=== PATIENT | male | born 1995 | race Caucasian/White ===

== ENCOUNTER 2021-04-02 22:34 | Emergency (ER) | payer MEDICAID, SELFPAY ==
--- NOTE | ~2021-04-02 | US_ITS ---
EXAMINATION: US ABDOMEN LIMITED CLINICAL INFORMATION: Worsening epigastric pain after eating. COMPARISON: None TECHNIQUE: Real-time imaging of the right upper quadrant abdominal viscera. FINDINGS: PANCREAS: Normal. LIVER: The liver is normal in size. The liver contour is normal. There is diffuse increased liver parenchymal echogenicity, consistent with hepatic steatosis. No focal hepatic lesion. There is no intrahepatic biliary duct dilatation seen. GALLBLADDER: Normal. The gallbladder is physiologically distended without evidence of stones, sludge, polyps, wall thickening or pericholecystic fluid. COMMON BILE DUCT: Normal in caliber measuring 0.4 cm in diameter. RIGHT KIDNEY: Normal. No hydronephrosis. No renal calculi or focal parenchymal lesions. The kidney measures 11.1 cm in maximum dimension. FREE FLUID: None. US/US abdomen limited IMPRESSION: Hepatic steatosis. Normal appearance of the gallbladder.
[2021-04-02 22:38] VITALS: BP 151/100; PULSE 100; RESP 16; TEMP 36.3; O2SAT 98; BMI 28.7
[2021-04-02 22:59] LABS: MANUAL DIFF FLAG NO
[2021-04-02 23:00] LABS: Basophils Absolute Auto 0.1 X10*3/uL (0.0-0.2); Basophils Percent Auto 0.8 % (0-2); Eosinophils Absolute Auto 0.7 X10*3/uL (0.0-0.4); Eosinophils Percent Auto 6.2 % (0-4); Hematocrit 45.2 % (42-52); Hemoglobin 15.7 g/dl (14.0-18.0); Imm Gran Abs Auto 0.05 X10*3/uL (0.00-0.03); Imm Gran Pct Auto 0.5 % (0.0-0.4); Lymphocytes Absolute Auto 1.9 X10*3/uL (1.2-4.9); Lymphocytes Percent Auto 17.7 % (20-40); Mean Corpuscular HGB Conc 34.7 g/dl (31.0-36.0); Mean Corpuscular Hemoglobin 31.3 pg (27.0-33.0); Mean Platelet Volume 9.7 fL (9.4-12.4); Monocytes Absolute Auto 0.6 X10*3/uL (0.1-1.2); Monocytes Percent Auto 5.1 % (2-11); Neutrophils Absolute Auto 7.5 X10*3/uL (2.0-8.3); Neutrophils Percent Auto 69.7 % (45-73); Platelet Count 381 X10*3/uL (160-400); Red Blood Count 5.02 X10*6/uL (4.60-5.80); Red Cell Distribution Width 11.7 % (11.0-16.0); White Blood Count 10.8 X10*3/uL (4.8-10.8)
[2021-04-02 23:54] LABS: Alanine Aminotransferase 34 U/L (0-40); Albumin Level 4.9 g/dL (3.5-5.0); Alkaline Phosphatase 76 U/L (39-117); Anion Gap 15 (12-20); Aspartate Amino Transferase 23 U/L (5-37); Bilirubin Total 0.4 mg/dL (0.0-1.0); Blood Urea Nitrogen 11 mg/dL (9-16); Calcium 9.7 mg/dL (8.4-10.2); Carbon Dioxide 25 mmol/L (22-29); Chloride 102 mmol/L (96-108); Creatinine Clr Calc Pharmacy 144.9; Estimated Glomerular Filt Rate > 60; Glucose Random 85 mg/dL (60-115); Lipase 22 U/L (8-78); Potassium 4.4 mmol/L (3.3-5.1); Sodium 138 mmol/L (135-145); Total Protein 8.2 g/dL (6.5-8.0)
[2021-04-03 01:13] VITALS: BP 146/97; PULSE 104; RESP 16; TEMP 37.1; O2SAT 99
--- NOTE | 2021-04-03 01:24 | ED.ABDPAIN ---
HPI - Abdominal Pain General Chief Complaint: Abdominal Pain Stated Complaint: abd pain Time Seen by Provider: 04/03/21 01:11 Source: patient Mode of arrival: ambulatory Limitations: no limitations History of Present Illness HPI narrative: Patient comes emergency room complaining of epigastric pain. Patient states it has been going on for about a year, but in the last couple of weeks, the pain is more intense after eating certain foods. Patient states he has a sharp pain in the epigastric area radiating towards his back. Patient denies vomiting or diarrhea. He has noticed that his stool has been darker than usual, states he has not seen any mignon blood. Related Data Previous Rx's Medication Instructions Recorded omeprazole 40 mg PO DAILY #10 cap 04/03/21 Allergies Allergy/AdvReac Type Severity Reaction Status Date / Time No Known Allergies Allergy Verified 04/02/21 22:46 Review of Systems Review of Systems Constitutional : No Weight loss, No Fever, No Chills, No Night Sweats, No Fatigue, No Malaise ENT/Mouth : No Hearing loss, No Ear Pain, No Nasal Congestion, No Sinus Pain, No Hoarseness, No sore throat, No Rhinorrhea, No Swallowing Difficulty Eyes: No Eye Pain, No Swelling, No Redness, No Foreign Body, No Discharge, No Vision Changes Cardiovascular : No Chest Pain, No SOB, No Dyspnea on Exertion, No Orthopnea, No Edema, No Palpitations Respiratory : No Cough, No Sputum, No Wheezing, No Smoke Exposure, No Dyspnea Gastrointestinal : No Nausea, No Vomiting, No Diarrhea, No Constipation, complaining of epigastric pain worsened by meals, No Hematochezia, No Melena Genitourinary : no irregular bleeding, No Dysuria, No Urinary Frequency, No Hematuria, No Urinary Incontinence, No Urgency, No Flank Pain, No Urinary Flow Changes, No Hesitancy Musculoskeletal : No joint pain, No Myalgias, No Joint Swelling Skin : No Skin Lesions, No rash Neuro : No Weakness, No Numbness, No Paresthesias, No Loss of Consciousness, No Dizziness, No Headache Psych : No Anxiety/Panic, No Depression, No SI/HI/AH/VH, No Social Issues, Heme/Lymph: No Bruising, No Bleeding,No Lymphadenopathy Endocrine : No Polyuria, No Polydipsia, No Temperature Intolerance Physical Exam Vital Signs: Vital Signs: Last Vital Signs Temp 98.7 F 04/03/21 01:13 Pulse 104 H 04/03/21 01:13 Resp 16 04/03/21 01:13 BP 146/97 H 04/03/21 01:13 Pulse Ox 99 04/03/21 01:13 Body Mass Index 28.7 Appearance: Alert. Oriented X3. No acute distress. Eyes: Pupils equal, round and reactive to light. ENT: Pharynx normal. Neck: Normal inspection. Neck supple. No lymph nodes noted. No crepitus CVS: Normal heart rate and rhythm. Pulses normal. Normal S1 and S2 Respiratory: No respiratory distress. Breath sounds normal. No Wheezing. No rales Abdomen: Soft and nontender, negative Hirsch sign, No rigidity. No distention. good BS x4 Skin: Skin warm and dry. Normal skin color. Normal skin turgor. Extremities: No lower extremity edema. No lower extremity edema. No Lacerations. No Rash Neuro: Oriented X 3. No motor deficit. No sensory deficit. Moving all extermities. No slurred speech. Course Course Course Narrative: I discussed the labs and ultrasound with the patient, patient likely having gastritis versus peptic ulcer disease. MDM - Abdominal Pain Lab Data Result diagrams: 04/02/21 22:54 04/02/21 22:54 Labs: Lab Results 04/02/21 04/02/21 04/02/21 Range/Units 22:54 22:54 22:54 WBC 10.8 (4.8-10.8) X10*3/uL RBC 5.02 (4.60-5.80) X10*6/uL Hgb 15.7 (14.0-18.0) g/dl Hct 45.2 (42-52) % MCV 90.0 (80-98) fL MCH 31.3 (27.0-33.0) pg MCHC 34.7 (31.0-36.0) g/dl RDW 11.7 (11.0-16.0) % Plt Count 381 (160-400) X10*3/uL MPV 9.7 (9.4-12.4) fL Immature Gran % (Auto) 0.5 H (0.0-0.4) % Neut % (Auto) 69.7 (45-73) % Lymph % (Auto) 17.7 L (20-40) % [place] % (Auto) 5.1 (2-11) % Eos % (Auto) 6.2 H (0-4) % Baso % (Auto) 0.8 (0-2) % Lymph # (Auto) 1.9 (1.2-4.9) X10*3/uL [place] # (Auto) 0.6 (0.1-1.2) X10*3/uL Eos # (Auto) 0.7 H (0.0-0.4) X10*3/uL Baso # (Auto) 0.1 (0.0-0.2) X10*3/uL Abs Immat Gran (auto) 0.05 H (0.00-0.03) X10*3/uL Absolute Neuts (auto) 7.5 (2.0-8.3) X10*3/uL Absolute Nucleated RBC 0.000 (0.0-0.012) X10*3/uL Nucleated RBC % (auto) 0.0 (0.0-0.2) /100WBC Hold Blue Top SEE NOTE Sodium 138 (135-145) mmol/L Potassium 4.4 (3.3-5.1) mmol/L Chloride 102 (96-108) mmol/L Carbon Dioxide 25 (22-29) mmol/L Anion Gap 15 (12-20) BUN 11 (9-16) mg/dL Creatinine 0.89 (0.5-1.4) mg/dL Estim Creat Clear Calc 144.9 Estimated GFR > 60 Random Glucose 85 (60-115) mg/dL Calcium 9.7 (8.4-10.2) mg/dL Total Bilirubin 0.4 (0.0-1.0) mg/dL AST 23 (5-37) U/L ALT 34 (0-40) U/L Alkaline Phosphatase 76 (39-117) U/L Total Protein 8.2 H (6.5-8.0) g/dL Albumin 4.9 (3.5-5.0) g/dL Lipase 22 (8-78) U/L Imaging Data US - abdomen: Radiologist's impression: Real-time imaging of the right upper quadrant abdominal viscera. FINDINGS: PANCREAS: Normal. LIVER: The liver is normal in size. The liver contour is normal. There is diffuse increased liver parenchymal echogenicity, consistent with hepatic steatosis. No focal hepatic lesion. There is no intrahepatic biliary duct dilatation seen. GALLBLADDER: Normal. The gallbladder is physiologically distended without evidence of stones, sludge, polyps, wall thickening or pericholecystic fluid. COMMON BILE DUCT: Normal in caliber measuring 0.4 cm in diameter. RIGHT KIDNEY: Normal. No hydronephrosis. No renal calculi or focal parenchymal lesions. The kidney measures 11.1 cm in maximum dimension. FREE FLUID: None. US/US abdomen limited IMPRESSION: Hepatic steatosis. Normal appearance of the gallbladder. Discharge Plan Discharge Clinical Impression: Gastritis Qualifiers: Gastritis type: unspecified gastritis Chronicity: chronic Patient Disposition: Home, Self-Care Instructions: Gastritis (ED), Diet for Stomach Ulcers and Gastritis (ED) Additional Instructions: Please follow-up with your primary care physician tomorrow. If you have any worsening or new symptoms, please return to the emergency room or call 911 Prescriptions: New omeprazole 40 mg capsule,delayed release(DR/EC) 40 mg PO DAILY Qty: 10 RF: 0 PMFSH Social History Social History Alcohol intake: never Smoking Status: Never smoker Use of substances other than those prescribed or required for medical reasons: No Advance Directives: No Advance Directives Information Provided: No
[2021-04-03] MEDS: Lidocaine HCl Viscous 2 % 15 ML SOLUTION MUCOUS MEM (01:31)
[2021-04-03] MEDS: Magnesium Hydrox/Alum Hydrox 30 ML ORAL.SUSP PO (01:31)
[2021-04-03 03:08] VITALS: BP 150/100; PULSE 100; RESP 16; O2SAT 100
== END 2021-04-03 03:10 | disposition home or self-care (01) ==
PROVIDERS: Emergency Provider Emergency Medicine
DX: K29.70 Gastritis, unspecified, without bleeding (principal); R10.13 Epigastric pain
CPT/HCPCS: 36415; 76705; 80053; 83690; 85025; 99284

== ENCOUNTER 2021-04-13 00:29 | Emergency (ER) | payer MEDICAID, SELFPAY ==
--- NOTE | 2021-04-13 | ECG_ITS ---
Test Reason : CHEST THIGHTNESS Blood Pressure : / mmHG Vent. Rate : 089 BPM Atrial Rate : 089 BPM P-R Int : 144 ms QRS Dur : 080 ms QT Int : 354 ms P-R-T Axes : 031 035 036 degrees QTc Int : 430 ms Normal sinus rhythm Normal ECG No previous ECGs available Referred By: Generic ED Physician Electronically Signed By:ABDELRAHMAN FAY MD
--- NOTE | ~2021-04-13 | XR_ITS ---
EXAMINATION: XR CHEST CLINICAL INFORMATION: Chest pain COMPARISON: None TECHNIQUE: 2 views of the chest were obtained. FINDINGS: The lungs are clear with no focal consolidation. No evidence of pneumothorax, pulmonary edema, or pleural effusions. The cardiomediastinal silhouette is unremarkable. No acute osseous findings. XR/XR chest 2V IMPRESSION: No acute cardiopulmonary findings.
[2021-04-13 00:32] VITALS: BP 156/102; PULSE 95; RESP 20; TEMP 36; O2SAT 98; BMI 28.7
--- NOTE | 2021-04-13 00:42 | PC.NURSE ---
EKG machine unavailable at this time.
--- NOTE | 2021-04-13 05:04 | ED_ITS ---
HPI - General Adult General Chief complaint: ETOH/Substance Use Stated complaint: SOB Time Seen by Provider: 04/13/21 05:03 Source: patient Mode of arrival: ambulatory History of Present Illness HPI narrative: This is a 25-year-old male who endorses that he drank alcohol and smoked crack cocaine on Wednesday and then began developing increasing chest tightness and shortness of breath last evening that has not been associated with fever, chills, GI symptoms, or symptoms. Pain does worsen with deep inspiration and movement. Related Data Previous Rx's Medication Instructions Recorded omeprazole 40 mg PO DAILY #10 cap 04/03/21 Allergies Allergy/AdvReac Type Severity Reaction Status Date / Time No Known Allergies Allergy Verified 04/13/21 00:38 Review of Systems Review of Systems: Pertinent positives and negatives as stated in HPI 10 point review of systems is otherwise negative. PMFSH Past Medical History Source: nursing notes reviewed Social History Social History Alcohol intake: never Smoking Status: Never smoker Advance Directives: No Advance Directives Information Provided: No Physical Exam Vital Signs: Vital Signs: Last Vital Signs Temp 96.8 F 04/13/21 00:32 Pulse 95 04/13/21 00:32 Resp 20 04/13/21 00:32 BP 156/102 H 04/13/21 00:32 Pulse Ox 98 04/13/21 00:32 Body Mass Index 28.7 VITAL SIGNS: Reviewed. GENERAL: Well developed, well nourished, in no acute distress. HEAD: Normocephalic/atraumatic EYES: PERRLA, EOMI OROPHARYNX: no oral lesions noted, posterior pharynx clear NECK: Supple, no adenopathy LUNGS: Normal breath sounds. No adventitious sounds or accessory muscle use. SpO2<98> CHEST WALL: MINIMAL TENDERNESS TO PALPATION TO ANTERIOR CHEST WALL CARDIOVASCULAR: Regular rate and rhythm without noted murmurs, no JVD or lower extremity edema. ABDOMEN: Soft, non-tender, non-distended with bowel sounds. Course Course Course Narrative: This is a 25-year-old male with history and clinical presentation most consistent with costochondritis/muscle strain. Review of all investigations negative for any acute findings of cardio pulmonary etiology and negative for evidence to suggest PE although that was low clinical suspicion. Patient received results and was discharged in stable condition with instructions for [id number] analgesics. Medical Decision Making Lab Data Labs: Lab Results 04/13/21 04/13/21 Range/Units 06:04 06:04 D-Dimer < 200 NG/ML Troponin I High Sens < 3.5 (<3.5-35.0) ng/L Discharge Plan Discharge Clinical Impression: Atypical chest pain, Costochondritis Patient Disposition: Home, Self-Care Instructions: Costochondritis (ED) Additional Instructions: 1. Recommend using [id number] Tylenol/ibuprofen as directed on the outside packaging for any pain control. 2. Please follow-up with your primary care provider in the next 2-3 days for re- evaluation. Return to the ER for any acute worsening of your symptoms. Prescriptions: No Action omeprazole 40 mg capsule,delayed release(DR/EC) 40 mg PO DAILY Qty: 10 RF: 0
[2021-04-13 06:46] LABS: D Dimer < 200 NG/ML
[2021-04-13 06:51] LABS: Troponin-I High Sensitivity < 3.5 ng/L (<3.5-35.0)
== END 2021-04-13 07:48 | disposition home or self-care (01) ==
PROVIDERS: Emergency Provider Student in an Organized Health Care Education/Training Program
DX: R07.9 Chest pain, unspecified (principal); M94.0 Chondrocostal junction syndrome [Tietze]; F14.10 Cocaine abuse, uncomplicated; Z79.899 Other long term (current) drug therapy
CPT/HCPCS: 36415; 71046; 80048; 84443; 84484; 85025; 85379; 87635; 93005; 99283; 99284

== ENCOUNTER 2021-04-13 21:46 | Emergency (ER) | payer MEDICAID, SELFPAY ==
--- NOTE | 2021-04-13 | ECG_ITS ---
Test Reason : CHEST PAIN Blood Pressure : / mmHG Vent. Rate : 109 BPM Atrial Rate : 109 BPM P-R Int : 154 ms QRS Dur : 088 ms QT Int : 324 ms P-R-T Axes : 068 050 047 degrees QTc Int : 436 ms Sinus tachycardia Otherwise normal ECG When compared with ECG of 13-APR-2021 00:47, No significant change was found Referred By: Generic ED Physician Electronically Signed By:CHELA JEFFERSON
--- NOTE | ~2021-04-13 | XR_ITS ---
EXAMINATION: XR CHEST CLINICAL INFORMATION: Shortness of breath COMPARISON: 04/13/2021 TECHNIQUE: 2 views of the chest were obtained. FINDINGS: The lungs are clear with no focal consolidation. No evidence of pneumothorax, pulmonary edema, or pleural effusions. The cardiomediastinal silhouette is unremarkable. No acute osseous findings. XR/XR chest 2V IMPRESSION: No acute cardiopulmonary findings.
[2021-04-13 22:33] VITALS: BP 156/98; PULSE 112; RESP 22; TEMP 36.8; O2SAT 98; BMI 28.7
--- NOTE | 2021-04-14 01:45 | ED_ITS ---
HPI - Anxiety General Chief Complaint: Anxiety Stated Complaint: SOB/Chest Pain Time Seen by Provider: 04/14/21 00:51 Source: patient Mode of arrival: ambulatory History of Present Illness HPI narrative: 25-year-old male without significant past medical history other than a occasional drinker of alcohol and occasionally smokes crack cocaine. This patient was seen here last night for rule out of chest pain with a negative workup for PE, pneumonia, cardiac ischemia. He now presents stating that he woke up and ?just did not feel right?. He describes breathing fast and feeling short of breath which causes him to have chest pain. He also describes wanting to pursue possible options for detox but denies any suicidal or homicidal idea tion. Otherwise, he denies any fever, chills, GI or symptoms. Related Data Previous Rx's Medication Instructions Recorded omeprazole 40 mg PO DAILY #10 cap 04/03/21 hydroxyzine HCl 25 mg PO TID PRN #10 tab 04/14/21 Allergies Allergy/AdvReac Type Severity Reaction Status Date / Time No Known Allergies Allergy Verified 04/13/21 00:38 Review of Systems Review of Systems: Pertinent positives and negatives as stated in HPI 10 point review of systems is otherwise negative. PMFSH Past Medical History Source: nursing notes reviewed Social History Social History Alcohol intake: never Smoking Status: Never smoker Advance Directives: No Advance Directives Information Provided: No Physical Exam Vital Signs: Vital Signs: Last Vital Signs Temp 98.2 F 04/13/21 22:33 Pulse 112 H 04/13/21 22:33 Resp 22 H 04/13/21 22:33 BP 156/98 H 04/13/21 22:33 Pulse Ox 98 04/13/21 22:33 Body Mass Index 28.7 VITAL SIGNS: Reviewed. GENERAL: Well developed, well nourished, in no acute distress. HEAD: Normocephalic/atraumatic EYES: PERRLA, EOMI EARS: Ext canals without abnormality NOSE: Nares patent bilateral OROPHARYNX: no oral lesions noted, posterior pharynx clear NECK: Supple, no adenopathy LUNGS: Normal breath sounds. No adventitious sounds or accessory muscle use. No tachypnea. SpO2<98> CARDIOVASCULAR: Regular rate and rhythm without noted murmurs ABDOMEN: Soft, non-tender, non-distended with bowel sounds. Course Course Course Narrative: A 25-year-old male history and clinical presentation consi stent with as workup last night negative for any life-threatening etiologies. This evening will obtain additional laboratory workup and look for possible electrolyte derangements and also provide patient with a dose of hydroxyzine. Review of all investigations negative for any acute findings to better explain patient's presentation other than anxiety and possibly residual affects from his smoking of crack cocaine. On re-evaluation he does endorse some improvement of his anxiety symptoms but states that ?I still do not feel quite right?. He is otherwise stable for discharge to home and follow up with his primary care provider. MDM - Anxiety Lab Data Result diagrams: 04/14/21 02:06 04/14/21 02:06 Labs: Lab Results 04/14/21 04/14/21 04/14/21 Range/Units 02:02 02:06 02:06 WBC 12.4 H (4.8-10.8) X10*3/uL RBC 5.10 (4.60-5.80) X10*6/uL Hgb 16.1 (14.0-18.0) g/dl Hct 45.3 (42-52) % MCV 88.8 (80-98) fL MCH 31.6 (27.0-33.0) pg MCHC 35.5 (31.0-36.0) g/dl RDW 11.6 (11.0-16.0) % Plt Count 422 H (160-400) X10*3/uL MPV 9.6 (9.4-12.4) fL Immature Gran % (Auto) 0.4 (0.0-0.4) % Neut % (Auto) 78.6 H (45-73) % Lymph % (Auto) 16.1 L (20-40) % [place] % (Auto) 4.1 (2-11) % Eos % (Auto) 0.3 (0-4) % Baso % (Auto) 0.5 (0-2) % Lymph # (Auto) 2.0 (1.2-4.9) X10*3/uL [place] # (Auto) 0.5 (0.1-1.2) X10*3/uL Eos # (Auto) 0.0 (0.0-0.4) X10*3/uL Baso # (Auto) 0.1 (0.0-0.2) X10*3/uL Abs Immat Gran (auto) 0.05 H (0.00-0.03) X10*3/uL Absolute Neuts (auto) 9.8 H (2.0-8.3) X10*3/uL Absolute Nucleated RBC 0.000 (0.0-0.012) X10*3/uL Nucleated RBC % (auto) 0.0 (0.0-0.2) /100WBC Sodium 140 (135-145) mmol/L Potassium 3.9 (3.3-5.1) mmol/L Chloride 106 (96-108) mmol/L Carbon Dioxide 20 L (22-29) mmol/L Anion Gap 18 (12-20) BUN 9 (9-16) mg/dL Creatinine 0.97 (0.5-1.4) mg/dL Estim Creat Clear Calc 133.0 Estimated GFR > 60 Random Glucose 93 (60-115) mg/dL Calcium 10.4 H D (8.4-10.2) mg/dL Troponin I High Sens (<3.5-35.0) ng/L TSH 1.11 (0.32-4.0) uIU/mL COVID-19 (ANNETTE) Negative (Negative) COVID-19 Clin Com See Note 04/14/21 Range/Units 02:06 WBC (4.8-10.8) X10*3/uL RBC (4.60-5.80) X10*6/uL Hgb (14.0-18.0) g/dl Hct (42-52) % MCV (80-98) fL MCH (27.0-33.0) pg MCHC (31.0-36.0) g/dl RDW (11.0-16.0) % Plt Count (160-400) X10*3/uL MPV (9.4-12.4) fL Immature Gran % (Auto) (0.0-0.4) % Neut % (Auto) (45-73) % Lymph % (Auto) (20-40) % [place] % (Auto) (2-11) % Eos % (Auto) (0-4) % Baso % (Auto) (0-2) % Lymph # (Auto) (1.2-4.9) X10*3/uL [place] # (Auto) (0.1-1.2) X10*3/uL Eos # (Auto) (0.0-0.4) X10*3/uL Baso # (Auto) (0.0-0.2) X10*3/uL Abs Immat Gran (auto) (0.00-0.03) X10*3/uL Absolute Neuts (auto) (2.0-8.3) X10*3/uL Absolute Nucleated RBC (0.0-0.012) X10*3/uL Nucleated RBC % (auto) (0.0-0.2) /100WBC Sodium (135-145) mmol/L Potassium (3.3-5.1) mmol/L Chloride (96-108) mmol/L Carbon Dioxide (22-29) mmol/L Anion Gap (12-20) BUN (9-16) mg/dL Creatinine (0.5-1.4) mg/dL Estim Creat Clear Calc Estimated GFR Random Glucose (60-115) mg/dL Calcium (8.4-10.2) mg/dL Troponin I High Sens < 3.5 (<3.5-35.0) ng/L TSH (0.32-4.0) uIU/mL COVID-19 ([facility]NETTE) (Negative) COVID-19 Clin Com Discharge Plan Discharge Clinical Impression: Acute anxiety Patient Disposition: Home, Self-Care Instructions: Anxiety (ED) Additional Instructions: Please follow-up with your primary care provider by calling the office in the morning and setting up a follow-up appointment. Return to the ER for any acute worsening of your symptoms. Prescriptions: New hydroxyzine HCl 25 mg tablet 25 mg PO TID PRN (Reason: anxiety) Qty: 10 RF: 0 No Action omeprazole 40 mg capsule,delayed release(DR/EC) 40 mg PO DAILY Qty: 10 RF: 0 Referrals: Physician,Unknown [Primary Care Provider] - 2 days
[2021-04-14 02:11] LABS: MANUAL DIFF FLAG NO
[2021-04-14 02:12] LABS: Basophils Absolute Auto 0.1 X10*3/uL (0.0-0.2); Basophils Percent Auto 0.5 % (0-2); Eosinophils Percent Auto 0.3 % (0-4); Hematocrit 45.3 % (42-52); Hemoglobin 16.1 g/dl (14.0-18.0); Imm Gran Abs Auto 0.05 X10*3/uL (0.00-0.03); Imm Gran Pct Auto 0.4 % (0.0-0.4); Lymphocytes Percent Auto 16.1 % (20-40); Mean Corpuscular HGB Conc 35.5 g/dl (31.0-36.0); Mean Corpuscular Hemoglobin 31.6 pg (27.0-33.0); Mean Corpuscular Volume 88.8 fL (80-98); Mean Platelet Volume 9.6 fL (9.4-12.4); Monocytes Absolute Auto 0.5 X10*3/uL (0.1-1.2); Monocytes Percent Auto 4.1 % (2-11); Neutrophils Absolute Auto 9.8 X10*3/uL (2.0-8.3); Neutrophils Percent Auto 78.6 % (45-73); Platelet Count 422 X10*3/uL (160-400); Red Cell Distribution Width 11.6 % (11.0-16.0); White Blood Count 12.4 X10*3/uL (4.8-10.8)
[2021-04-14] MEDS: hydrOXYzine HCL 25 MG TABLET PO (02:16)
[2021-04-14 02:28] LABS: COVID-19 Test Negative (Negative); IDNOW Serial# 9DD0AD1C
[2021-04-14 02:32] LABS: Anion Gap 18 (12-20); Blood Urea Nitrogen 9 mg/dL (9-16); Calcium 10.4 mg/dL (8.4-10.2); Carbon Dioxide 20 mmol/L (22-29); Chloride 106 mmol/L (96-108); Estimated Glomerular Filt Rate > 60; Glucose Random 93 mg/dL (60-115); Potassium 3.9 mmol/L (3.3-5.1); Sodium 140 mmol/L (135-145)
[2021-04-14 02:39] LABS: Troponin-I High Sensitivity < 3.5 ng/L (<3.5-35.0)
[2021-04-14 04:01] LABS: Thyroid Stimulating Hormone 1.11 uIU/mL (0.32-4.0)
== END 2021-04-14 05:22 | disposition home or self-care (01) ==
PROVIDERS: Emergency Provider Student in an Organized Health Care Education/Training Program
DX: F41.1 Generalized anxiety disorder (principal); F14.180 Cocaine abuse with cocaine-induced anxiety disorder; R06.02 Shortness of breath; Z20.822 Contact with and (suspected) exposure to COVID-19; Z79.899 Other long term (current) drug therapy
CPT/HCPCS: 36415; 71046; 80048; 84443; 84484; 85025; 87635; 93005; 99283

== ENCOUNTER 2021-09-19 23:17 | Inpatient (IN) | payer OTHER, SELFPAY ==
[2021-09-19 23:35] VITALS: BP 149/98; PULSE 101; RESP 18; TEMP 36.4; O2SAT 97
[2021-09-20] MEDS: LORazepam 1 MG TABLET 2 MG PO (01:02)
--- NOTE | 2021-09-20 01:54 | PC.ADMIT ---
Patient is a pleasant and respectful 25 year old white male with no known allergies, who presented to [facility] after being Section 12'd by [facility]. Patient lives at home with his mother and step-father. He describes his relationship with his parents as supportive, though reports a history of growing up in [facility] foster homes due to familial neglect. Per [facility] report, [facility] spoke with his mother and step father. His mother and step father reported Osmany typically reports suicidal ideation however today (09/18/21) he stated that he wanted to end his life by drinking alcohol and taking pills. He started therapy a few months ago; [facility] note from 09/16 indicates appears to be declining, making very little to no growth. Upon arrival to [facility] ED and at the time of assessment Osmany denies any sucidal or homicidal ideation, plan or intent. Patient arrives to [facility] at 23:35 on 09/19/21. Patient continues to deny suicidal ideation at this time. Patient reports past history of substance use. He reports Cocaine use beginning at age 23, Crack Cocaine use beginning about 1 year ago, Meth use - 10-15 times recently with last substance use about three months ago. Patient has negative Tox and ETOH screen at [facility]. Patient reports struggling with debilitating anxiety since ending substance use. He states, I think it messed up my brain. Patient reports he has been experiencing 10/10 depression and anxiety with intermittent anxiety attacks. He reports having gone to the ED for symptoms of anxiety attacks. He states, I thought I had something wrong with my heart. Patient reports shortness of breath, chest pain, heart palpitations, and ear ringing during anxiety attacks. He is noted to have elevated Heart Rate and Pulse upon arrival to . He reports he feels his anxiety and depression is preventing him from engaging in normal activities such as working, hanging out with friends, attending school, and/or dating. Patient reports he has talked with both his therapist and PCP about his anxiety symptoms but they did not want to give me anything to help. Patient reports he has been taking a friend's prescribed Lorazepam about 2 mg a day; 1mg in the morning and 1 mg in the evening. With the last dose yesterday morning, (09/18/21). Patient reports fears of Benzo withdrawals. He states he has been feeling tired and grumpy. [facility] M.D. notes He eloped from the emergency department last night (09/18/21) police were contacted and were unable to find him however he returned back to his home and was told that he needs to be seen in the emergency department to be cleared from a psychiatric standpoint. He continues to deny suicidal or homicidal thoughts or actions and has no somatic complaints at this time. Home Medications: Famotidine (Pepcid) 20mg - take 1 tablet by mouth twice day as needed for heartburn - start date: 05/30/21 Hydrocortisone valerate 0.2% cream - Apply topically twice a day to affected area - start dateL 05/30/21
--- NOTE | 2021-09-20 02:37 | PC.NURSE ---
Patient admitted to [facility] on Conditional Voluntary (CV) signed in Chart
[2021-09-20 08:00] VITALS: BP 136/85; PULSE 95; RESP 18; TEMP 36.7; O2SAT 98
--- NOTE | 2021-09-20 09:25 | HO.PSYADMNOT ---
HPI Date of Service: 09/20/21 Chief Complaint: Unspecified Depressive D/O Sources of Information: patient interviewed, chart reviewed and crisis/core team assessment reviewed HPI Subjective Notes: Conditional Voluntary Healthcare Proxy: No Guardianship: No Medical Problems Affecting Mental Status: No Narrative: Referred by [facility]IVE SERVICES SOCIAL WORKER after evaluation at [facility] ED. Presented with SI to use ETOH and pills. Later denied SI. Eloped from [facility]. Later sectioned back to ED. Increasing anxiety and depression, isolating, not meeting friends. High anxiety preventing him from working. Using friends Loraz at 2 mg , now fears withdrawal. Hx severe LUIS ANGEL, some panic like feelings. No PTSD (doubt it) or phobias. No OCD. Hx ACEs as a child bc was fostered and was in [facility] group homes. Both parents were substance users. Denies bipolar/psychosis/ other major syndromes Past Psychiatric History: Has a therapist at [facility]. Not helpful;. Waiting for a Rxer Medical Evaluation Reviewed: Hospitalist Georgina [facility] Narrative: GERD Family History: Both parents: polysubstance use. Bio F still using. Lives in [place] Social History: Lives with M and StepF Substance History: THC+ Cocaine : last use 3 months ago. 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 Not current Diagnostics Vital Signs (24Hr): Vital Signs - 24 hr 09/19/21 23:35 Temperature 97.5 F Pulse Rate 101 H Respiratory Rate 18 Blood Pressure 149/98 H Pulse Oximetry 97 Meds/Allergies Meds Home Medications Acetaminophen (Acetaminophen 325 Mg Tablet) 650 mg PO Q6H PRN PRN Reason: Headache/Pain Mild Scale (1-3) Al Hydroxide/Mg Hydroxide (Magnesium Hydrox/Alum Hydrox 30 Ml Oral.Susp) 30 ml PO Q6H PRN PRN Reason: Heartburn/Nausea Famotidine (Famotidine 20 Mg Tablet) 20 mg PO DAILY [facility] Last Admin: 09/21/21 09:03 Dose: Not Given Documented by: Hydrocortisone (Hydrocortisone 1 % Cream 28.35 Gm Tube) 1 appl TOPICAL DAILY PRN; Protocol PRN Reason: eczema Hydroxyzine HCl (Hydroxyzine Hcl 25 Mg Tablet) 25 mg PO BEDTIME PRN PRN Reason: Anxiety Lorazepam (Lorazepam 1 Mg Tablet) 1 mg PO Q4H PRN PRN Reason: Breakthrough alcohol withdrawa Stop: 09/24/21 00:18 Last Admin: 09/20/21 12:21 Dose: 1 mg Documented by: Lorazepam (Lorazepam 0.5 Mg Tablet) 0.5 mg PO DAILY [facility] Last Admin: 09/21/21 09:02 Dose: 0.5 mg Documented by: Lorazepam (Lorazepam 1 Mg Tablet) 1 mg PO BEDTIME [facility] Last Admin: 09/20/21 22:07 Dose: 1 mg Documented by: Magnesium Hydroxide (Milk Of Magnesia 30 Ml Oral.Susp) 30 ml PO DAILY PRN PRN Reason: Constipation Nicotine Polacrilex (Nicotine Polacrilex 2 Mg Gum) 4 mg BUCCAL Q2H PRN PRN Reason: Nicotine Cravings Quetiapine Fumarate (Quetiapine Fumarate 25 Mg Tablet) 25 mg PO RQ4H PRN PRN Reason: anxiety/restlessness Last Admin: 09/21/21 16:27 Dose: 25 mg Documented by: Sertraline HCl (Sertraline Hcl 25 Mg Tablet) 25 mg PO DAILY [facility] Last Admin: 09/21/21 09:02 Dose: 25 mg Documented by: Trazodone HCl (Trazodone Hcl 50 Mg Tablet) 50 mg PO BEDTIME PRN PRN Reason: Insomnia Allergies Allergies Allergy/AdvReac Type Severity Reaction Status Date / Time No Known Allergies Allergy Verified 04/13/21 00:38 Mental Status Exam Mental Status Exam Patient Appearance: Appropriate Patient Orientation: Person, Place, Time and Situation Level of Consciousness: Awake Patient Behavior: Appropriate and Cooperative Mood Description: Calm and Depressed Affect Description: Withdrawn and Depressed Ability to Follow Directions: Excellent Speech Pattern: Clear Memory Description: Intact Hallucinations: None Delusions: Not Present Thought Content: positive for Intact and positive for Suicidal Ideation (Now denies) Depressive Symptoms: Increased Anxiety Judgement: Fair Assessment & Plan Assessment & Plan (1) Major depression, recurrent, chronic: Status: Acute Code(s): F33.9 - Major depressive disorder, recurrent, unspecified (2) Generalized anxiety disorder: Status: Acute Code(s): F41.1 - Generalized anxiety disorder (3) Sedative hypnotic or anxiolytic dependence: Status: Acute Code(s): F13.20 - Sedative, hypnotic or anxiolytic dependence, uncomplicated Assessment and Plan: 1. cv, q15 2. Slow taper off Loraz. 3, Add PRN Seroquel. Vistaril not effective 4. Zoloft. 5. Refer to CHILD PROTECTIVE SERVICES SOCIAL WORKER prescriber. 6. ELOS: 5 days Reason for continued inpatient stay Substantial Risk for: harm to self
[2021-09-20 12:00] VITALS: BP 138/82; PULSE 96; RESP 20; TEMP 36.8; O2SAT 98
[2021-09-20] MEDS: LORazepam 1 MG TABLET PO ×2 (12:21→22:07)
[2021-09-20] MEDS: Sertraline HCL 25 MG TABLET PO (13:39)
--- NOTE | 2021-09-21 08:38 | P.PNPSI_ITS ---
Subjective Subjective Date of Service: 09/21/21 Reason For Visit: Unspecified Depressive D/O Subjective Notes: Conditional Voluntary Healthcare Proxy: No Guardianship: No Medical Problems Affecting Mental Status: No Interim History: 09/21: Pleasant. Poor sleep bc of noisy roommate. Denies SI. Hopeful. Reassured re benzo WD. Ct plan Medication Compliance: Yes Side effects from medications: No Attending Groups: Yes Review of Systems Acute medical concerns: No Mental Status Exam Mental Status Exam Patient Behavior: Anxious Mood Description: Calm Affect Description: Calm Patient Cognition Impaired: No Ability to Follow Directions: Excellent Speech Pattern: Clear Memory Description: Intact Hallucinations: None Delusions: Not Present Thought Process: Intact Depressive Symptoms: Increased Anxiety Judgement: Fair Diagnostics Vital Signs (24Hr): Vital Signs - 24 hr 09/20/21 12:00 Temperature 98.2 F Pulse Rate 96 Respiratory Rate 20 Blood Pressure 138/82 Pulse Oximetry 98 Medications Medications Current Medications Acetaminophen (Acetaminophen 325 Mg Tablet) 650 mg PO Q6H PRN PRN Reason: Headache/Pain Mild Scale (1-3) Al Hydroxide/Mg Hydroxide (Magnesium Hydrox/Alum Hydrox 30 Ml Oral.Susp) 30 ml PO Q6H PRN PRN Reason: Heartburn/Nausea Famotidine (Famotidine 20 Mg Tablet) 20 mg PO DAILY [facility] Last Admin: 09/20/21 11:25 Dose: Not Given Documented by: Hydrocortisone (Hydrocortisone 1 % Cream 28.35 Gm Tube) 1 appl TOPICAL DAILY PRN; Protocol PRN Reason: eczema Hydroxyzine HCl (Hydroxyzine Hcl 25 Mg Tablet) 25 mg PO BEDTIME PRN PRN Reason: Anxiety Lorazepam (Lorazepam 1 Mg Tablet) 1 mg PO Q4H PRN PRN Reason: Breakthrough alcohol withdrawa Stop: 09/24/21 00:18 Last Admin: 09/20/21 12:21 Dose: 1 mg Documented by: Lorazepam (Lorazepam 0.5 Mg Tablet) 0.5 mg PO DAILY [facility] Lorazepam (Lorazepam 1 Mg Tablet) 1 mg PO BEDTIME [facility] Last Admin: 09/20/21 22:07 Dose: 1 mg Documented by: Magnesium Hydroxide (Milk Of Magnesia 30 Ml Oral.Susp) 30 ml PO DAILY PRN PRN Reason: Constipation Nicotine Polacrilex (Nicotine Polacrilex 2 Mg Gum) 4 mg BUCCAL Q2H PRN PRN Reason: Nicotine Cravings Quetiapine Fumarate (Quetiapine Fumarate 25 Mg Tablet) 25 mg PO RQ4H PRN PRN Reason: anxiety/restlessness Sertraline HCl (Sertraline Hcl 25 Mg Tablet) 25 mg PO DAILY [facility] Last Admin: 09/20/21 13:39 Dose: 25 mg Documented by: Trazodone HCl (Trazodone Hcl 50 Mg Tablet) 50 mg PO BEDTIME PRN PRN Reason: Insomnia Allergies Allergies Allergy/AdvReac Type Severity Reaction Status Date / Time No Known Allergies Allergy Verified 04/13/21 00:38 Assessment & Plan Assessment & Plan (1) Sedative hypnotic or anxiolytic dependence: Status: Acute Code(s): F13.20 - Sedative, hypnotic or anxiolytic dependence, uncomplicated (2) Generalized anxiety disorder: Status: Acute Code(s): F41.1 - Generalized anxiety disorder (3) Major depression, recurrent, chronic: Status: Acute Code(s): F33.9 - Major depressive disorder, recurrent, unspecified Assessment and Plan: 1/ Ct plan as noted on 09/20 I spent minutes with the patient and/or on the patient floor today, greater than?50% of which was spent counseling/coordinating care. Patient educated on: diagnosis Reason for contiued inpatient stay Substantial Risk for: harm to self and rapid decompensation
[2021-09-21] MEDS: LORazepam 0.5 MG TABLET PO (09:02)
[2021-09-21] MEDS: Sertraline HCL 25 MG TABLET PO (09:02)
[2021-09-21 16:00] VITALS: BP 146/83; PULSE 94; RESP 22; TEMP 36; O2SAT 99
[2021-09-21] MEDS: QUEtiapine Fumarate 25 MG TABLET PO (16:27)
[2021-09-21] MEDS: LORazepam 1 MG TABLET PO (21:12)
[2021-09-22 07:20] VITALS: BP 135/83; PULSE 90; RESP 18; TEMP 36.6; O2SAT 98
[2021-09-22] MEDS: LORazepam 0.5 MG TABLET PO (09:42)
[2021-09-22] MEDS: Sertraline HCL 25 MG TABLET PO (09:42)
[2021-09-22 12:00] VITALS: BP 131/81; PULSE 95; RESP 16; TEMP 36.6; O2SAT 99
[2021-09-22 15:27] LABS: Calcium 9.6 mg/dL (8.4-10.2); Magnesium 2.2 mg/dL (1.6-2.6)
[2021-09-22 16:40] LABS: Vitamin B12 347 pg/mL (200-900)
--- NOTE | 2021-09-22 17:45 | HO.PSYCHPN ---
Subjective Subjective Date of Service: 09/22/21 Reason For Visit: Unspecified Depressive D/O Subjective Notes: Conditional Voluntary Interim History: Pt reports sleeping and eating well. He reports he does not feel anxious with ativan. He reports he has not used cocaine for more than 3 months. We discussed concern about pt buying ativan on streets and ongoing ativan rx. Pt denies SI/HI. Pt reports that he reported suicidal ideaiton but admits he was never truly suicidal and it was more as an attempt to get help. Medication Compliance: Yes Mental Status Exam Mental Status Exam Patient Appearance: Appropriate Patient Orientation: Person, Place, Time and Situation Level of Consciousness: Awake Patient Behavior: Anxious Mood Description: Calm Affect Description: Calm Patient Cognition Impaired: No Ability to Follow Directions: Excellent Speech Pattern: Clear Memory Description: Intact Diagnostics Vital Signs (24Hr): Vital Signs - 24 hr 09/22/21 07:20 09/22/21 12:00 Temperature 97.8 F 98 F Pulse Rate 90 95 Respiratory Rate 18 16 Blood Pressure 135/83 131/81 Pulse Oximetry 98 99 Labs Labs: Laboratory Results - last 48 hr 09/22/21 09/22/21 15:04 15:04 Calcium 9.6 D Magnesium 2.2 Vitamin B12 347 Folate 15.0 Medications Medications Current Medications Acetaminophen (Acetaminophen 325 Mg Tablet) 650 mg PO Q6H PRN PRN Reason: Headache/Pain Mild Scale (1-3) Al Hydroxide/Mg Hydroxide (Magnesium Hydrox/Alum Hydrox 30 Ml Oral.Susp) 30 ml PO Q6H PRN PRN Reason: Heartburn/Nausea Famotidine (Famotidine 20 Mg Tablet) 20 mg PO DAILY [facility] Last Admin: 09/22/21 10:01 Dose: Not Given Documented by: Hydrocortisone (Hydrocortisone 1 % Cream 28.35 Gm Tube) 1 appl TOPICAL DAILY PRN; Protocol PRN Reason: eczema Hydroxyzine HCl (Hydroxyzine Hcl 25 Mg Tablet) 25 mg PO BEDTIME PRN PRN Reason: Anxiety Lorazepam (Lorazepam 1 Mg Tablet) 1 mg PO Q4H PRN PRN Reason: Breakthrough alcohol withdrawa Stop: 09/24/21 00:18 Last Admin: 09/20/21 12:21 Dose: 1 mg Documented by: Lorazepam (Lorazepam 0.5 Mg Tablet) 0.5 mg PO DAILY [facility] Last Admin: 09/22/21 09:42 Dose: 0.5 mg Documented by: Lorazepam (Lorazepam 1 Mg Tablet) 1 mg PO BEDTIME [facility] Last Admin: 09/21/21 21:12 Dose: 1 mg Documented by: Magnesium Hydroxide (Milk Of Magnesia 30 Ml Oral.Susp) 30 ml PO DAILY PRN PRN Reason: Constipation Nicotine Polacrilex (Nicotine Polacrilex 2 Mg Gum) 4 mg BUCCAL Q2H PRN PRN Reason: Nicotine Cravings Quetiapine Fumarate (Quetiapine Fumarate 25 Mg Tablet) 25 mg PO RQ4H PRN PRN Reason: anxiety/restlessness Last Admin: 09/21/21 16:27 Dose: 25 mg Documented by: Sertraline HCl (Sertraline Hcl 25 Mg Tablet) 25 mg PO DAILY [facility] Last Admin: 09/22/21 09:42 Dose: 25 mg Documented by: Trazodone HCl (Trazodone Hcl 50 Mg Tablet) 50 mg PO BEDTIME PRN PRN Reason: Insomnia Allergies Allergies Allergy/AdvReac Type Severity Reaction Status Date / Time No Known Allergies Allergy Verified 04/13/21 00:38 Assessment & Plan Assessment & Plan (1) Sedative hypnotic or anxiolytic dependence: Status: Acute Code(s): F13.20 - Sedative, hypnotic or anxiolytic dependence, uncomplicated (2) Generalized anxiety disorder: Status: Acute Code(s): F41.1 - Generalized anxiety disorder (3) Major depression, recurrent, chronic: Status: Acute Code(s): F33.9 - Major depressive disorder, recurrent, unspecified Assessment and Plan: 1/ Ct plan as noted on 09/20 I spent minutes with the patient and/or on the patient floor today, greater than?50% of which was spent counseling/coordinating care. Reason for contiued inpatient stay Substantial Risk for: stable for discharge
[2021-09-22] MEDS: LORazepam 1 MG TABLET PO (22:00)
[2021-09-23] MEDS: Sertraline HCL 25 MG TABLET PO (09:18)
[2021-09-23] MEDS: LORazepam 0.5 MG TABLET PO (09:18)
[2021-09-23 12:00] VITALS: BP 142/80; PULSE 86
--- NOTE | 2021-09-23 13:37 | HO.PSYCHPN ---
Subjective Subjective Date of Service: 09/23/21 Reason For Visit: Unspecified Depressive D/O Subjective Notes: Conditional Voluntary Interim History: Pt reports feeling less anxious. He reports sleeping well. He denies SI/HI. We discussed increasing Sertraline and adding propanolol for anxiety in addition to ativan. we discussed risks, of misuse and abuse of benzo as he continues to work on his recovery. Medication Compliance: Yes Side effects from medications: No Mental Status Exam Mental Status Exam Patient Appearance: Appropriate Patient Orientation: Person, Place, Time and Situation Level of Consciousness: Awake Patient Behavior: Anxious Mood Description: Calm Affect Description: Calm Patient Cognition Impaired: No Ability to Follow Directions: Excellent Speech Pattern: Clear Memory Description: Intact Diagnostics Vital Signs (24Hr): Vital Signs - 24 hr 09/23/21 12:00 Pulse Rate 86 Blood Pressure 142/80 H Labs Labs: Laboratory Results - last 48 hr 09/22/21 09/22/21 15:04 15:04 Calcium 9.6 D Magnesium 2.2 Vitamin B12 347 Folate 15.0 Medications Medications Current Medications Acetaminophen (Acetaminophen 325 Mg Tablet) 650 mg PO Q6H PRN PRN Reason: Headache/Pain Mild Scale (1-3) Al Hydroxide/Mg Hydroxide (Magnesium Hydrox/Alum Hydrox 30 Ml Oral.Susp) 30 ml PO Q6H PRN PRN Reason: Heartburn/Nausea Famotidine (Famotidine 20 Mg Tablet) 20 mg PO DAILY [facility] Last Admin: 09/23/21 09:19 Dose: Not Given Documented by: Hydrocortisone (Hydrocortisone 1 % Cream 28.35 Gm Tube) 1 appl TOPICAL DAILY PRN; Protocol PRN Reason: eczema Hydroxyzine HCl (Hydroxyzine Hcl 25 Mg Tablet) 25 mg PO BEDTIME PRN PRN Reason: Anxiety Lorazepam (Lorazepam 1 Mg Tablet) 1 mg PO Q4H PRN PRN Reason: Breakthrough alcohol withdrawa Stop: 09/24/21 00:18 Last Admin: 09/20/21 12:21 Dose: 1 mg Documented by: Lorazepam (Lorazepam 0.5 Mg Tablet) 0.5 mg PO DAILY [facility] Last Admin: 09/23/21 09:18 Dose: 0.5 mg Documented by: Lorazepam (Lorazepam 1 Mg Tablet) 1 mg PO BEDTIME [facility] Last Admin: 09/22/21 22:00 Dose: 1 mg Documented by: Magnesium Hydroxide (Milk Of Magnesia 30 Ml Oral.Susp) 30 ml PO DAILY PRN PRN Reason: Constipation Nicotine Polacrilex (Nicotine Polacrilex 2 Mg Gum) 4 mg BUCCAL Q2H PRN PRN Reason: Nicotine Cravings Quetiapine Fumarate (Quetiapine Fumarate 25 Mg Tablet) 25 mg PO RQ4H PRN PRN Reason: anxiety/restlessness Last Admin: 09/21/21 16:27 Dose: 25 mg Documented by: Sertraline HCl (Sertraline Hcl 50 Mg Tablet) 50 mg PO DAILY [facility] Trazodone HCl (Trazodone Hcl 50 Mg Tablet) 50 mg PO BEDTIME PRN PRN Reason: Insomnia Allergies Allergies Allergy/AdvReac Type Severity Reaction Status Date / Time No Known Allergies Allergy Verified 04/13/21 00:38 Assessment & Plan Assessment & Plan (1) Sedative hypnotic or anxiolytic dependence: Status: Acute Code(s): F13.20 - Sedative, hypnotic or anxiolytic dependence, uncomplicated (2) Generalized anxiety disorder: Status: Acute Code(s): F41.1 - Generalized anxiety disorder (3) Major depression, recurrent, chronic: Status: Acute Code(s): F33.9 - Major depressive disorder, recurrent, unspecified Assessment and Plan: Mr. Butler is a 26 year-old male with hx of anxious mood, depression, use of cocaine and crystal meth now in remission. Self presented for increase anxious mood, suicidal ideation. PLAN 1. Increase Sertraline to 50mg po daily 2. Start propanolol for anxious mood/restlessness 3. discussed short term rx for ativan given risks of misuse and abuse as he continues to work on recovery. I spent minutes with the patient and/or on the patient floor today, greater than?50% of which was spent counseling/coordinating care. Reason for contiued inpatient stay Substantial Risk for: harm to self
[2021-09-23 16:00] VITALS: BP 136/78; PULSE 68; TEMP 36.8
[2021-09-23 21:22] VITALS: BP 144/88; PULSE 87
[2021-09-23] MEDS: Propranolol HCL 10 MG TABLET PO (21:22)
[2021-09-23] MEDS: LORazepam 1 MG TABLET PO (21:26)
[2021-09-23 21:37] VITALS: BP 144/88; PULSE 87
[2021-09-24 08:41] VITALS: BP 124/79; PULSE 88
[2021-09-24] MEDS: Propranolol HCL 10 MG TABLET PO ×2 (08:41→22:21)
[2021-09-24] MEDS: LORazepam 0.5 MG TABLET PO (08:42)
[2021-09-24] MEDS: Sertraline HCL 50 MG TABLET PO (08:42)
[2021-09-24] MEDS: Famotidine 20 MG TABLET PO (08:42)
--- NOTE | 2021-09-24 17:00 | HO.PSYCHPN ---
Subjective Subjective Date of Service: 09/24/21 Reason For Visit: Unspecified Depressive D/O Subjective Notes: Conditional Voluntary Interim History: Pt continues to report feeling less anxious. He reports sleeping well. He denies SI/HI. We discussed increasing Sertraline and adding propanolol for anxiety in addition to ativan. we discussed risks, of misuse and abuse of benzo as he continues to work on his recovery. Mental Status Exam Mental Status Exam Patient Appearance: Appropriate Patient Orientation: Person, Place, Time and Situation Level of Consciousness: Awake Patient Behavior: Anxious Mood Description: Calm Affect Description: Calm Patient Cognition Impaired: No Ability to Follow Directions: Excellent Speech Pattern: Clear Memory Description: Intact Diagnostics Vital Signs (24Hr): Vital Signs - 24 hr 09/23/21 21:22 09/23/21 21:37 09/24/21 08:41 Pulse Rate 87 87 88 Blood Pressure 144/88 H 144/88 H 124/79 Medications Medications Current Medications Acetaminophen (Acetaminophen 325 Mg Tablet) 650 mg PO Q6H PRN PRN Reason: Headache/Pain Mild Scale (1-3) Al Hydroxide/Mg Hydroxide (Magnesium Hydrox/Alum Hydrox 30 Ml Oral.Susp) 30 ml PO Q6H PRN PRN Reason: Heartburn/Nausea Famotidine (Famotidine 20 Mg Tablet) 20 mg PO DAILY [facility] Last Admin: 09/24/21 08:42 Dose: 20 mg Documented by: Hydrocortisone (Hydrocortisone 1 % Cream 28.35 Gm Tube) 1 appl TOPICAL DAILY PRN; Protocol PRN Reason: eczema Hydroxyzine HCl (Hydroxyzine Hcl 25 Mg Tablet) 25 mg PO BEDTIME PRN PRN Reason: Anxiety Lorazepam (Lorazepam 0.5 Mg Tablet) 0.5 mg PO DAILY [facility] Last Admin: 09/24/21 08:42 Dose: 0.5 mg Documented by: Lorazepam (Lorazepam 1 Mg Tablet) 1 mg PO BEDTIME [facility] Last Admin: 09/23/21 21:26 Dose: 1 mg Documented by: Magnesium Hydroxide (Milk Of Magnesia 30 Ml Oral.Susp) 30 ml PO DAILY PRN PRN Reason: Constipation Nicotine Polacrilex (Nicotine Polacrilex 2 Mg Gum) 4 mg BUCCAL Q2H PRN PRN Reason: Nicotine Cravings Propranolol HCl (Propranolol Hcl 10 Mg Tablet) 10 mg PO BID [facility]; Protocol Last Admin: 09/24/21 08:41 Dose: 10 mg Documented by: Quetiapine Fumarate (Quetiapine Fumarate 25 Mg Tablet) 25 mg PO RQ4H PRN PRN Reason: anxiety/restlessness Last Admin: 09/21/21 16:27 Dose: 25 mg Documented by: Sertraline HCl (Sertraline Hcl 50 Mg Tablet) 50 mg PO DAILY [facility] Last Admin: 09/24/21 08:42 Dose: 50 mg Documented by: Trazodone HCl (Trazodone Hcl 50 Mg Tablet) 50 mg PO BEDTIME PRN PRN Reason: Insomnia Allergies Allergies Allergy/AdvReac Type Severity Reaction Status Date / Time No Known Allergies Allergy Verified 04/13/21 00:38 Assessment & Plan Assessment & Plan (1) Sedative hypnotic or anxiolytic dependence: Status: Acute Code(s): F13.20 - Sedative, hypnotic or anxiolytic dependence, uncomplicated (2) Generalized anxiety disorder: Status: Acute Code(s): F41.1 - Generalized anxiety disorder (3) Major depression, recurrent, chronic: Status: Acute Code(s): F33.9 - Major depressive disorder, recurrent, unspecified Assessment and Plan: Mr. Butler is a 26 year-old male with hx of anxious mood, depression, use of cocaine and crystal meth now in remission. Self presented for increase anxious mood, suicidal ideation. PLAN 1. Increase Sertraline to 50mg po daily 2. Start propanolol for anxious mood/restlessness 3. discussed short term rx for ativan given risks of misuse and abuse as he continues to work on recovery. I spent minutes with the patient and/or on the patient floor today, greater than?50% of which was spent counseling/coordinating care. Reason for contiued inpatient stay Substantial Risk for: stable for discharge
[2021-09-24 19:30] VITALS: BP 136/79; PULSE 81; TEMP 36.4; O2SAT 95
[2021-09-24 22:15] VITALS: BP 136/79; PULSE 81; O2SAT 94
[2021-09-24 22:21] VITALS: BP 136/79; PULSE 94
[2021-09-24] MEDS: LORazepam 1 MG TABLET PO (22:21)
[2021-09-25 09:22] VITALS: BP 129/79; PULSE 85
[2021-09-25] MEDS: LORazepam 0.5 MG TABLET PO (09:22)
[2021-09-25] MEDS: Sertraline HCL 50 MG TABLET PO (09:22)
[2021-09-25] MEDS: Propranolol HCL 10 MG TABLET PO (09:22)
--- NOTE | 2021-09-25 09:32 | P.DS_ITS ---
DS: Providers Provider Date of Service: 09/25/21 Date of admission: 09/19/21 23:17 Primary care physician: Kiel Carr MD Consults: 09/21/21 17:09 Consult to Hospitalist Routine Consulting Provider: Hospitalist Reason For Exam: H and P per protocol DS: Diagnosis Discharge Diagnosis (1) Sedative hypnotic or anxiolytic dependence: Status: Acute (2) Generalized anxiety disorder: Status: Acute (3) Major depression, recurrent, chronic: Status: Acute DS: Medications Discharge Medications Home Medications: Home Medications Medication Instructions Recorded Confirmed famotidine 20 mg tablet 1 tab PO BID 09/20/21 Previous Rx's Medication Instructions Recorded lorazepam 0.5 mg tablet 0.5 mg PO DAILY #15 tab 09/25/21 lorazepam 1 mg tablet 1 mg PO BEDTIME #15 tab 09/25/21 propranolol 10 mg tablet 10 mg PO BID #60 tab 09/25/21 sertraline 50 mg tablet 50 mg PO DAILY #30 tab 09/25/21 Mental Status Exam Mental Status Exam Patient Appearance: Appropriate Patient Orientation: Person, Place, Time and Situation Level of Consciousness: Awake Patient Behavior: Anxious Mood Description: Calm Affect Description: Calm Patient Cognition Impaired: No Ability to Follow Directions: Excellent Speech Pattern: Clear Memory Description: Intact Data Data Completed and Pending Completed studies during hospitalization [Text1]: 09/22/21 09/22/21 15:04 15:04 Calcium 9.6 D Magnesium 2.2 Vitamin B12 347 Folate 15.0 DS: Summary Hospital Course Hospital Course: HPI: Referred by APRON TRIMMER after evaluation at [facility] ED. Presented with SI to use ETOH and pills. Later denied SI. Eloped from [facility]. Later sectioned back to ED. Increasing anxiety and depression, isolating, not meeting friends. High anxiety preventing him from working. Using friends Loraz at 2 mg , now fears withdrawal. Hx severe LUIS ANGEL, some panic like feelings. No PTSD (doubt it) or phobias. No OCD. Hx ACEs as a child bc was fostered and was in [facility] group homes. Both parents were substance users. Denies bipolar/psychosis/ other major syndromes Past Psychiatric History: Has a therapist at [facility]. Not helpful;. Waiting for a Rxer Medical Evaluation Reviewed: Yes. HOSPITAL COURSE On the unit, Mr. Styles was admitted on CV and placed on 15 minutes checks for safety. Pt reports severe anxious mood, restlessness for about two months. He reports severity of anxiety triggered depressed mood, hopelessness, passive suicidal ideation. On the unit, pt adamantly denied suicidal or homicidal ideation. He reported he stopped using cocaine and crystal meth about 4 months ago. He does admit to using a friends ativan to treat his anxiety. We discussed risks, benefits and alternative treatment options. He was started on sertraline for symptoms of depression and anxiety, which he tolerated well and was titrated to 50mg po daily. He was started on benzo taper. We discussed risks of misuse or abuse as he continues to work on his recovery from substance use. He was also started on propanol for anxious mood. He was educated on increase risk of CVA when combining cocaine and beta blockers. Pt noted his anxiety did decrease and understood rational to utilize other psychotropic medications to control anxiety over time without interfering with his recovery. His affect gradually brighten. He reported feeling much less depressed, less anxious. He attended assigned groups. He was social with select peers. There were no incidences of disruptive behaviors nor use of restraints. Collateral information gathered from his mother who reports pt increasingly more anxious and hopeless. He had been mostly at home, unable to look for job due to anxious mood. She denied safety concerns at time of discharge. Pt agreed to follow up with outpatient psychiatric services. Status at Discharge Cognitive/behavioral status at discharge: Pt with brighter affect. No SI/HI. He reports much less anxious mood. He was sleeping and eating well. He was increasingly more future oriented. No signs of aggression towards self or others. More hopeful. Functional status at discharge: independent ambulation Overall status at discharge: patient is progressing back to baseline Time Spent with Patient Time attestation: Total time spent providing and/or coordinating discharge services: Time spent: Less than 30 minutes Discharge Plan Discharge Patient Disposition: Home, Self-Care Discharge Diagnosis: LUIS ANGEL MDD, recurrent, moderate Cocaine use disorder in early remission Referrals: Kiel Carr MD [Primary Care Provider] - 09/29/21 3:00 pm (in office) Discharge Medications: New propranolol 10 mg Tablet 10 mg PO BID Qty: 60 RF: 0 lorazepam 0.5 mg Tablet 0.5 mg PO DAILY Qty: 15 RF: 0 lorazepam 1 mg Tablet 1 mg PO BEDTIME Qty: 15 RF: 0 sertraline 50 mg Tablet 50 mg PO DAILY Qty: 30 RF: 0 Continued famotidine 20 mg tablet 1 tab PO BID RF: 0 Discontinued hydroxyzine HCl 25 mg tablet 25 mg PO TID PRN (Reason: anxiety) Qty: 10 RF: 0 Discharge Orders: Discharge Order (Routine); Ordered 09/25/21 Ordered By: Michell Perez Diet: regular diet Activity on Discharge: As tolerated Stand Alone Forms: Patient Portal Discharge page Care Plan Goals: 1. Maintain mood 2. No SI/HI 3. Less anxious mood Health Concerns: 1. Follow up with PCP for routine care Plan of Treatment: 1. Take medications as pprescribed 2. Follow up with referrals 3. Go to nearest ED or call 911 in event of emergency. Assessment: Pt presents as much calmer, no signs of agitation, aggression towards self or others. Pt is future oriented. He denies SI/HI. Continue working towards recovery. Pt reports no use of cocaine or crystal meth in about 3 months.
--- NOTE | 2021-09-25 09:49 | PM.EVENT ---
Event Note Date of Service: 09/25/21 Event Note: Attempted to evaluate patient for routine medical consultation. Pt unavailable at this time, will attempt to eval at later time.
== END 2021-09-25 14:23 | disposition home or self-care (01) | DRG 751 ==
PROVIDERS: Social Worker; Admitting Provider Psychiatry & Neurology Psychiatry; PCP Pediatrics; Visit Provider Psychiatry & Neurology Psychiatry
DX: F33.1 Major depressive disorder, recurrent, moderate (principal); R45.851 Suicidal ideations; F13.20 Sedative, hypnotic or anxiolytic dependence, uncomplicated; F41.1 Generalized anxiety disorder; Z79.899 Other long term (current) drug therapy
CPT/HCPCS: 36415; 82310; 82607; 82746; 83735

== ENCOUNTER 2021-12-08 19:28 | Emergency (ER) | payer MEDICAID, SELFPAY ==
--- NOTE | ~2021-12-08 | XR_ITS ---
EXAMINATION: XR CHEST CLINICAL INFORMATION: Chest pain COMPARISON: 04/13/2021 TECHNIQUE: Frontal view of the chest was obtained. FINDINGS: The lungs are well expanded. There is no focal consolidation, edema, or effusion. No pneumothorax. The cardiomediastinal silhouette is within normal limits. No acute osseous abnormality. XR/XR chest 1V IMPRESSION: Clear lungs.
--- NOTE | 2021-12-08 19:53 | ECG_ITS ---
Test Reason : CHEST PAIN Blood Pressure : / mmHG Vent. Rate : 093 BPM Atrial Rate : 093 BPM P-R Int : 144 ms QRS Dur : 082 ms QT Int : 332 ms P-R-T Axes : 051 040 028 degrees QTc Int : 412 ms Normal sinus rhythm Normal ECG When compared with ECG of 13-APR-2021 21:53, No significant change was found Referred By: Generic ED Physician Electronically Signed By:Hernesto Wilson
[2021-12-08 19:54] VITALS: BP 145/94; PULSE 94; RESP 18; TEMP 37; O2SAT 96
[2021-12-08 20:44] VITALS: BP 149/94; PULSE 94; RESP 18; TEMP 37; O2SAT 96; BMI 28.7
[2021-12-08 21:45] LABS: Hematocrit 44.8 % (42.0-52.0); Hemoglobin 15.8 g/dl (14.0-18.0); Mean Corpuscular HGB Conc 35.3 g/dl (31.0-36.0); Mean Corpuscular Hemoglobin 31.6 pg (27.0-33.0); Mean Corpuscular Volume 89.6 fL (80.0-98.0); Mean Platelet Volume 9.6 fL (9.4-12.4); Platelet Count 380 X10*3/uL (160-400); Red Cell Distribution Width 11.9 % (11.0-16.0); White Blood Count 10.7 X10*3/uL (4.8-10.8)
[2021-12-08 22:02] LABS: Alanine Aminotransferase 33 U/L (0-40); Albumin Level 4.5 g/dL (3.5-5.0); Alkaline Phosphatase 72 U/L (39-117); Anion Gap 14 (12-20); Aspartate Amino Transferase 21 U/L (5-37); Bilirubin Total 0.4 mg/dL (0.0-1.0); Blood Urea Nitrogen 13 mg/dL (9-16); Calcium 10.2 mg/dL (8.4-10.2); Carbon Dioxide 26 mmol/L (22-29); Chloride 103 mmol/L (96-108); Estimated Glomerular Filt Rate > 60; Glucose Random 92 mg/dL (60-115); Potassium 4.1 mmol/L (3.3-5.1); Sodium 139 mmol/L (135-145); Total Protein 8.2 g/dL (6.5-8.0)
[2021-12-09 01:21] VITALS: BP 147/89; PULSE 85; RESP 16; O2SAT 98
[2021-12-09 01:34] LABS: MANUAL DIFF FLAG NO
[2021-12-09 01:37] LABS: Basophils Absolute Auto 0.1 X10*3/uL (0.0-0.2); Basophils Percent Auto 0.7 % (0-2); Eosinophils Absolute Auto 0.6 X10*3/uL (0.0-0.4); Eosinophils Percent Auto 4.4 % (0-4); Hematocrit 46.9 % (42.0-52.0); Imm Gran Abs Auto 0.08 X10*3/uL (0.00-0.03); Imm Gran Pct Auto 0.6 % (0.0-0.4); Lymphocytes Absolute Auto 3.8 X10*3/uL (1.2-4.9); Lymphocytes Percent Auto 30.5 % (20-40); Mean Corpuscular HGB Conc 34.1 g/dl (31.0-36.0); Mean Corpuscular Hemoglobin 30.5 pg (27.0-33.0); Mean Corpuscular Volume 89.5 fL (80.0-98.0); Mean Platelet Volume 9.7 fL (9.4-12.4); Monocytes Absolute Auto 0.9 X10*3/uL (0.1-1.2); Monocytes Percent Auto 6.8 % (2-11); Neutrophils Absolute Auto 7.2 x10*3/uL (2.0-8.3); Platelet Count 392 X10*3/uL (160-400); Red Blood Count 5.24 X10*6/uL (4.60-5.80); Red Cell Distribution Width 11.9 % (11.0-16.0); White Blood Count 12.6 X10*3/uL (4.8-10.8)
[2021-12-09 01:52] LABS: Anion Gap 13 (12-20); Blood Urea Nitrogen 12 mg/dL (9-16); COVID-19 Test Negative (Negative); Calcium 9.8 mg/dL (8.4-10.2); Carbon Dioxide 28 mmol/L (22-29); Chloride 102 mmol/L (96-108); Creatinine Clr Calc Pharmacy 150.4; Estimated Glomerular Filt Rate > 60; Glucose Random 80 mg/dL (60-115); Potassium 4.2 mmol/L (3.3-5.1); Sodium 139 mmol/L (135-145)
[2021-12-09 01:58] LABS: Troponin-I High Sensitivity < 3.5 ng/L (<3.5-35.0)
--- NOTE | 2021-12-09 02:21 | ED_ITS ---
HPI - Chest Pain General Chief Complaint: Chest Pain Stated Complaint: Chest pain Time Seen by Provider: 12/09/21 00:57 History of Present Illness HPI narrative: Patient is a 26-year-old male presents today with having chest pain. He used methamphetamine 2 weeks ago. Complaining of chest pain that is over the left side. It is worse with touch worse with movement. Few seconds each time. Not associated with shortness of breath diaphoresis. No history of diabetes, hypertension, high cholesterol, smoking, CT. No history of blood clots. No family history of blood clot no history of cancer. No history of clotting disorder. Patient is from home. No travel history. Patient has no family history of CT. sometimes the pain has no specific trigger. Always very brief. Related Data Home Medications Medication Instructions Recorded Confirmed famotidine 20 mg tablet 1 tab PO BID 09/20/21 Previous Rx's Medication Instructions Recorded lorazepam 0.5 mg tablet 0.5 mg PO DAILY #15 tab 09/25/21 lorazepam 1 mg tablet 1 mg PO BEDTIME #15 tab 09/25/21 propranolol 10 mg tablet 10 mg PO BID #60 tab 09/25/21 sertraline 50 mg tablet 50 mg PO DAILY #30 tab 09/25/21 Allergies Allergy/AdvReac Type Severity Reaction Status Date / Time No Known Allergies Allergy Verified 04/13/21 00:38 [facility], [facility] Past Medical History Attestation statement: The following information was validated with the patient. Social History Social History Household Members: Family Household Members Other:: Mother and Step-Father Housing: House Do you presently have visiting nurse or other home services: No Alcohol intake: never Patient Tobacco Use Status: Never used Tobacco Substance Use Type: Crack/Cocaine, Methamphetamine and Other Advance Directives: No service: No Sexual orientation: Straight/Heterosexual Physical Exam Vital Signs: Vital Signs: Last Vital Signs Temp 98.6 F 12/08/21 20:44 Pulse 85 12/09/21 01:21 Resp 16 12/09/21 01:21 BP 147/89 H 12/09/21 01:21 Pulse Ox 98 12/09/21 01:21 BMI result Body Mass Index 28.7 Appearance: Alert. Oriented X3. No acute distress. Eyes: Pupils equal, round and reactive to light. ENT: Pharynx normal. Neck: Normal inspection. Neck supple. No lymph nodes noted. No crepitus CVS: Normal heart rate and rhythm. Pulses normal. Normal S1 and S2 Respiratory: No respiratory distress. Breath sounds normal. No Wheezing. No rales Abdomen: Soft and nontender. No rigidity. No distention. good BS x4 Skin: Skin warm and dry. Normal skin color. Normal skin turgor. Extremities: No lower extremity edema. Neurovascular intact to all extremities. No Lacerations. No Rash Neuro: Oriented X 3. No motor deficit. No sensory deficit. Moving all extermities. No slurred speech MDM - Chest Pain MDM Narrative Medical decision making narrative: Patient's chest pain atypical for ACS. He is 26 years old with no significant cardiac risk factors. Patient's troponin is negative EKG is normal. His EKG showed a sinus pattern heart rate is 80 NE QRS QT within normal limits is no acute ST segment elevation. Patient has a heart score less than 3 will have patient follow-up on an outpatient basis more likely this is musculoskeletal. Patient told to follow up with Cardiology on an outpatient basis. Medical Records Data Attestation: I reviewed the patient's medical records. Lab Data Attestation: I reviewed the patient's lab results. Result diagrams: 12/09/21 01:28 12/09/21 01:28 Labs: Lab Results 12/08/21 12/08/21 12/09/21 Range/Units 21:39 21:39 01:28 WBC 10.7 12.6 H (4.8-10.8) X10*3/uL RBC 5.00 5.24 (4.60-5.80) X10*6/uL Hgb 15.8 16.0 (14.0-18.0) g/dl Hct 44.8 46.9 (42.0-52.0) % MCV 89.6 89.5 (80.0-98.0) fL MCH 31.6 30.5 (27.0-33.0) pg MCHC 35.3 34.1 (31.0-36.0) g/dl RDW 11.9 11.9 (11.0-16.0) % Plt Count 380 392 (160-400) X10*3/uL MPV 9.6 9.7 (9.4-12.4) fL Immature Gran % (Auto) 0.6 H (0.0-0.4) % Neut % (Auto) 57.0 (45-73) % Lymph % (Auto) 30.5 (20-40) % Mccormick % (Auto) 6.8 (2-11) % Eos % (Auto) 4.4 H (0-4) % Baso % (Auto) 0.7 (0-2) % Lymph # (Auto) 3.8 (1.2-4.9) X10*3/uL Mccormick # (Auto) 0.9 (0.1-1.2) X10*3/uL Eos # (Auto) 0.6 H (0.0-0.4) X10*3/uL Baso # (Auto) 0.1 (0.0-0.2) X10*3/uL Abs Immat Gran (auto) 0.08 H (0.00-0.03) X10*3/uL Absolute Neuts (auto) 7.2 (2.0-8.3) x10*3/uL Absolute Nucleated RBC 0.000 0.000 (0.0-0.012) X10*3/uL Nucleated RBC % (auto) 0.0 0.0 (0.0-0.2) /100WBC Sodium 139 (135-145) mmol/L Potassium 4.1 (3.3-5.1) mmol/L Chloride 103 (96-108) mmol/L Carbon Dioxide 26 (22-29) mmol/L Anion Gap 14 (12-20) BUN 13 (9-16) mg/dL Creatinine 0.87 (0.5-1.4) mg/dL Estim Creat Clear Calc 147.0 Estimated GFR > 60 Random Glucose 92 (60-115) mg/dL Calcium 10.2 D (8.4-10.2) mg/dL Total Bilirubin 0.4 (0.0-1.0) mg/dL AST 21 (5-37) U/L ALT 33 (0-40) U/L Alkaline Phosphatase 72 (39-117) U/L Troponin I High Sens (<3.5-35.0) ng/L Total Protein 8.2 H (6.5-8.0) g/dL Albumin 4.5 (3.5-5.0) g/dL COVID-19 (ANNETTE) (Negative) COVID-19 Clin Com 12/09/21 12/09/21 12/09/21 Range/Units 01:28 01:28 01:28 WBC (4.8-10.8) X10*3/uL RBC (4.60-5.80) X10*6/uL Hgb (14.0-18.0) g/dl Hct (42.0-52.0) % MCV (80.0-98.0) fL MCH (27.0-33.0) pg MCHC (31.0-36.0) g/dl RDW (11.0-16.0) % Plt Count (160-400) X10*3/uL MPV (9.4-12.4) fL Immature Gran % (Auto) (0.0-0.4) % Neut % (Auto) (45-73) % Lymph % (Auto) (20-40) % Mccormick % (Auto) (2-11) % Eos % (Auto) (0-4) % Baso % (Auto) (0-2) % Lymph # (Auto) (1.2-4.9) X10*3/uL Mccormick # (Auto) (0.1-1.2) X10*3/uL Eos # (Auto) (0.0-0.4) X10*3/uL Baso # (Auto) (0.0-0.2) X10*3/uL Abs Immat Gran (auto) (0.00-0.03) X10*3/uL Absolute Neuts (auto) (2.0-8.3) x10*3/uL Absolute Nucleated RBC (0.0-0.012) X10*3/uL Nucleated RBC % (auto) (0.0-0.2) /100WBC Sodium 139 (135-145) mmol/L Potassium 4.2 (3.3-5.1) mmol/L Chloride 102 (96-108) mmol/L Carbon Dioxide 28 (22-29) mmol/L Anion Gap 13 (12-20) BUN 12 (9-16) mg/dL Creatinine 0.85 (0.5-1.4) mg/dL Estim Creat Clear Calc 150.4 Estimated GFR > 60 Random Glucose 80 (60-115) mg/dL Calcium 9.8 (8.4-10.2) mg/dL Total Bilirubin (0.0-1.0) mg/dL AST (5-37) U/L ALT (0-40) U/L Alkaline Phosphatase (39-117) U/L Troponin I High Sens < 3.5 (<3.5-35.0) ng/L Total Protein (6.5-8.0) g/dL Albumin (3.5-5.0) g/dL COVID-19 (ANNETTE) Negative (Negative) COVID-19 Clin Com See Note Discharge Plan Discharge Clinical Impression: Chest pain Patient Disposition: Home, Self-Care Instructions: Chest Pain (ED) Prescriptions: No Action famotidine 20 mg tablet 1 tab PO BID RF: 0 propranolol 10 mg Tablet 10 mg PO BID Qty: 60 RF: 0 lorazepam 0.5 mg Tablet 0.5 mg PO DAILY Qty: 15 RF: 0 lorazepam 1 mg Tablet 1 mg PO BEDTIME Qty: 15 RF: 0 sertraline 50 mg Tablet 50 mg PO DAILY Qty: 30 RF: 0 Referrals: Kiel Carr MD [Primary Care Provider] - 2 days
== END 2021-12-09 02:51 | disposition home or self-care (01) ==
PROVIDERS: Emergency Provider Emergency Medicine Emergency Medical Services; PCP Pediatrics
DX: R07.9 Chest pain, unspecified (principal); Z20.822 Contact with and (suspected) exposure to COVID-19
CPT/HCPCS: 36415; 71045; 80048; 80053; 84484; 85025; 85027; 87635; 93005; 99283; 99284

== ENCOUNTER 2022-03-31 05:20 | Emergency (ER) | payer MEDICAID, SELFPAY ==
--- NOTE | 2022-03-31 | ECG_ITS ---
Test Reason : CHEST PAIN Blood Pressure : / mmHG Vent. Rate : 113 BPM Atrial Rate : 113 BPM P-R Int : 158 ms QRS Dur : 078 ms QT Int : 324 ms P-R-T Axes : 032 023 015 degrees QTc Int : 444 ms Sinus tachycardia Otherwise normal ECG When compared with ECG of 08-DEC-2021 19:56, No significant change was found Referred By: Generic ED Physician Electronically Signed By:ABDELRAHMAN FAY MD
--- NOTE | ~2022-03-31 | XR_ITS ---
EXAMINATION: XR CHEST CLINICAL INFORMATION: Chest pain COMPARISON: 12/09/2021 TECHNIQUE: Frontal view of the chest was obtained. FINDINGS: The lungs are well expanded. There is no focal consolidation, edema, or effusion. No pneumothorax. The cardiomediastinal silhouette is within normal limits. No acute osseous abnormality. XR/XR chest 1V IMPRESSION: Clear lungs.
[2022-03-31 05:25] VITALS: BP 146/86; PULSE 121; RESP 16; TEMP 36.6; O2SAT 98; BMI 30.8
[2022-03-31 05:38] LABS: Basophils Absolute Auto 0.1 X10*3/uL (0.0-0.2); Eosinophils Absolute Auto 0.4 X10*3/uL (0.0-0.4); Eosinophils Percent Auto 5.4 % (0-4); Hematocrit 42.2 % (42.0-52.0); Hemoglobin 15.1 g/dl (14.0-18.0); Imm Gran Abs Auto 0.03 X10*3/uL (0.00-0.03); Imm Gran Pct Auto 0.4 % (0.0-0.4); Lymphocytes Absolute Auto 1.8 X10*3/uL (1.2-4.9); Lymphocytes Percent Auto 22.3 % (20-40); MANUAL DIFF FLAG NO; Mean Corpuscular HGB Conc 35.8 g/dl (31.0-36.0); Mean Corpuscular Hemoglobin 31.5 pg (27.0-33.0); Mean Corpuscular Volume 87.9 fL (80.0-98.0); Mean Platelet Volume 9.5 fL (9.4-12.4); Monocytes Percent Auto 12.7 % (2-11); Neutrophils Absolute Auto 4.8 x10*3/uL (2.0-8.3); Neutrophils Percent Auto 58.2 % (45-73); Platelet Count 342 X10*3/uL (160-400); Red Cell Distribution Width 11.7 % (11.0-16.0); White Blood Count 8.2 X10*3/uL (4.8-10.8)
--- NOTE | 2022-03-31 05:39 | ED_ITS ---
HPI - Chest Pain General Chief Complaint: Chest Pain Stated Complaint: Chest pain/Sob Time Seen by Provider: 03/31/22 05:30 Source: patient Mode of arrival: ambulatory Limitations: no limitations History of Present Illness HPI narrative: Patient comes to emergency room complaining of approximately 12 hours of chest pain. Patient states that throughout the weekend, last couple of days he has been using large amount of methamphetamine which he gets off the street. Patient denies shortness of breath or lower extremity pain. Patient states that he drank alcohol 2 days ago, denies using any other drugs. Patient states that usually after using methamphetamines, patient feels ?like crap? including having chest pain. Also, patient states that a few days ago he tested positive for COVID-19. Related Data Home Medications Medication Instructions Recorded Confirmed famotidine 20 mg tablet 1 tab PO BID 09/20/21 Previous Rx's Medication Instructions Recorded lorazepam 0.5 mg tablet 0.5 mg PO DAILY #15 tab 09/25/21 lorazepam 1 mg tablet 1 mg PO BEDTIME #15 tab 09/25/21 propranolol 10 mg tablet 10 mg PO BID #60 tab 09/25/21 sertraline 50 mg tablet 50 mg PO DAILY #30 tab 09/25/21 Allergies Allergy/AdvReac Type Severity Reaction Status Date / Time No Known Allergies Allergy Verified 04/13/21 00:38 Review of Systems Review of Systems: Constitutional : No Weight loss, No Fever, No Chills, No Night Sweats, No Fatigue, No Malaise ENT/Mouth : No Hearing loss, No Ear Pain, No Nasal Congestion, No Sinus Pain, No Hoarseness, No sore throat, No Rhinorrhea, No Swallowing Difficulty Eyes: No Eye Pain, No Swelling, No Redness, No Foreign Body, No Discharge, No Vision Changes Cardiovascular : Complaining of constant chest pressure 4th 12 hours now, No SOB, No Dyspnea on Exertion, No Orthopnea, No Edema, No Palpitations Respiratory : No Cough, No Sputum, No Wheezing, No Smoke Exposure, No Dyspnea Gastrointestinal : No Nausea, No Vomiting, No Diarrhea, No Constipation, No ab dominal Pain, No Hematochezia, No Melena Genitourinary : no irregular bleeding, No Dysuria, No Urinary Frequency, No Hematuria, No Urinary Incontinence, No Urgency, No Flank Pain, No Urinary Flow Changes, No Hesitancy Musculoskeletal : No joint pain, No Myalgias, No Joint Swelling Skin : No Skin Lesions, No rash Neuro : No Weakness, No Numbness, No Paresthesias, No Loss of Consciousness, No Dizziness, No Headache Psych : No Anxiety/Panic, No Depression, No SI/HI/AH/VH, No Social Issues, Heme/Lymph: No Bruising, No Bleeding,No Lymphadenopathy Endocrine : No Polyuria, No Polydipsia, No Temperature Intolerance [facility] Social History Social History Household Members: Family Household Members Other:: Mother and Step-Father Housing: House Do you presently have visiting nurse or other home services: No Alcohol intake: never Patient Tobacco Use Status: Never used Tobacco Substance Use Type: Crack/Cocaine, Methamphetamine and Other Advance Directives: No service: No Sexual orientation: Straight/Heterosexual Physical Exam Vital Signs: Vital Signs: Last Vital Signs Temp 100.4 F 03/31/22 06:20 Pulse 103 H 03/31/22 06:20 Resp 19 03/31/22 06:20 BP 123/90 H 03/31/22 06:20 Pulse Ox 97 03/31/22 06:20 BMI result Body Mass Index 30.8 Const: Other: Appearance: Alert. Oriented X3. No acute distress. Eyes: Pupils equal, round and reactive to light. ENT: Pharynx normal. Neck: Normal inspection. Neck supple. No lymph nodes noted. No crepitus CVS: Normal heart rate and rhythm. Pulses normal. Normal S1 and S2 Respiratory: No respiratory distress. Breath sounds normal. No Wheezing. No rales Abdomen: Soft and nontender. No rigidity. No distention. Skin: Skin warm and dry. Normal skin color. Normal skin turgor. Extremities: No lower extremity edema. No Lacerations. No Rash Neuro: Oriented X 3. No motor deficit. No sensory deficit. Moving all extremities. No slurred speech. CN 2 through 12 grossly intact Psych: calm, cooperative, normal affect Course Course Course Narrative: No ischemic changes on EKG, patient tachycardic. Labs pending. Patient's heart rate decreased with IV fluids, patient has a temperature of 100.4 degrees, secondary to COVID. Patient was given Tylenol. At this time, a PE he is not suspected. PE wells criteria score is 0, heart rate 92. Patient tested positive for COVID-19. Patient states that he has known this for several days. Patient's EKG shows no acute abnormalities. Patient's symptoms likely secondary to drug use and anxiety MDM - Chest Pain Lab Data Result diagrams: 03/31/22 05:34 03/31/22 05:34 Labs: Lab Results 03/31/22 03/31/22 03/31/22 Range/Units 05:34 05:34 05:34 WBC 8.2 (4.8-10.8) X10*3/uL RBC 4.80 (4.60-5.80) X10*6/uL Hgb 15.1 (14.0-18.0) g/dl Hct 42.2 (42.0-52.0) % MCV 87.9 (80.0-98.0) fL MCH 31.5 (27.0-33.0) pg MCHC 35.8 (31.0-36.0) g/dl RDW 11.7 (11.0-16.0) % Plt Count 342 (160-400) X10*3/uL MPV 9.5 (9.4-12.4) fL Immature Gran % (Auto) 0.4 (0.0-0.4) % Neut % (Auto) 58.2 (45-73) % Lymph % (Auto) 22.3 (20-40) % Harnett % (Auto) 12.7 H (2-11) % Eos % (Auto) 5.4 H (0-4) % Baso % (Auto) 1.0 (0-2) % Lymph # (Auto) 1.8 (1.2-4.9) X10*3/uL Harnett # (Auto) 1.0 (0.1-1.2) X10*3/uL Eos # (Auto) 0.4 (0.0-0.4) X10*3/uL Baso # (Auto) 0.1 (0.0-0.2) X10*3/uL Abs Immat Gran (auto) 0.03 (0.00-0.03) X10*3/uL Absolute Neuts (auto) 4.8 (2.0-8.3) x10*3/uL Absolute Nucleated RBC 0.000 (0.0-0.012) X10*3/uL Nucleated RBC % (auto) 0.0 (0.0-0.2) /100WBC Sodium 137 (135-145) mmol/L Potassium 3.6 (3.3-5.1) mmol/L Chloride 104 (96-108) mmol/L Carbon Dioxide 25 (22-29) mmol/L Anion Gap 12 (12-20) BUN 10 (9-16) mg/dL Creatinine 1.13 (0.5-1.4) mg/dL Estim Creat Clear Calc 117.0 Estimated GFR > 60 Random Glucose 119 H D (60-115) mg/dL Calcium 9.4 (8.4-10.2) mg/dL Magnesium 2.4 (1.6-2.6) mg/dL Total Bilirubin 0.3 (0.0-1.0) mg/dL Direct Bilirubin 0.2 (0.0-0.5) mg/dL AST 18 (5-37) U/L ALT 22 (0-40) U/L Alkaline Phosphatase 60 (39-117) U/L Troponin I High Sens < 3.5 (<3.5-35.0) ng/L Total Protein 7.6 (6.5-8.0) g/dL Albumin 4.5 (3.5-5.0) g/dL COVID-19 (ANNETTE) (Negative) COVID-19 Clin Com 03/31/22 Range/Units 05:43 WBC (4.8-10.8) X10*3/uL RBC (4.60-5.80) X10*6/uL Hgb (14.0-18.0) g/dl Hct (42.0-52.0) % MCV (80.0-98.0) fL MCH (27.0-33.0) pg MCHC (31.0-36.0) g/dl RDW (11.0-16.0) % Plt Count (160-400) X10*3/uL MPV (9.4-12.4) fL Immature Gran % (Auto) (0.0-0.4) % Neut % (Auto) (45-73) % Lymph % (Auto) (20-40) % Harnett % (Auto) (2-11) % Eos % (Auto) (0-4) % Baso % (Auto) (0-2) % Lymph # (Auto) (1.2-4.9) X10*3/uL Harnett # (Auto) (0.1-1.2) X10*3/uL Eos # (Auto) (0.0-0.4) X10*3/uL Baso # (Auto) (0.0-0.2) X10*3/uL Abs Immat Gran (auto) (0.00-0.03) X10*3/uL Absolute Neuts (auto) (2.0-8.3) x10*3/uL Absolute Nucleated RBC (0.0-0.012) X10*3/uL Nucleated RBC % (auto) (0.0-0.2) /100WBC Sodium (135-145) mmol/L Potassium (3.3-5.1) mmol/L Chloride (96-108) mmol/L Carbon Dioxide (22-29) mmol/L Anion Gap (12-20) BUN (9-16) mg/dL Creatinine (0.5-1.4) mg/dL Estim Creat Clear Calc Estimated GFR Random Glucose (60-115) mg/dL Calcium (8.4-10.2) mg/dL Magnesium (1.6-2.6) mg/dL Total Bilirubin (0.0-1.0) mg/dL Direct Bilirubin (0.0-0.5) mg/dL AST (5-37) U/L ALT (0-40) U/L Alkaline Phosphatase (39-117) U/L Troponin I High Sens (<3.5-35.0) ng/L Total Protein (6.5-8.0) g/dL Albumin (3.5-5.0) g/dL COVID-19 (ANNETTE) Positive A (Negative) COVID-19 Clin Com See Note Discharge Plan Discharge Clinical Impression: Atypical chest pain, Active substance abuse, COVID-19 Patient Disposition: Home, Self-Care Instructions: Chest Pain (ED), COVID-19 (Coronavirus Disease 2019) (ED) Additional Instructions: You have to quarantine for 5 days. Please follow-up with your primary care physician tomorrow. If you have any worsening or new symptoms, please return to the emergency room or call 911 Prescriptions: No Action famotidine 20 mg tablet 1 tab PO BID 0RF propranolol 10 mg Tablet 10 mg PO BID Qty: 60 0RF Protocol: Hold for SBP/HR < HOLD for SBP < : 90 HOLD for HR < : 60 lorazepam 0.5 mg Tablet 0.5 mg PO DAILY Qty: 15 0RF lorazepam 1 mg Tablet 1 mg PO BEDTIME Qty: 15 0RF sertraline 50 mg Tablet 50 mg PO DAILY Qty: 30 0RF Stand Alone Forms: Work/School Release
[2022-03-31] MEDS: Aspirin Enteric Coated 325 MG TABLET.DR PO (05:48)
[2022-03-31 05:59] LABS: Troponin-I High Sensitivity < 3.5 ng/L (<3.5-35.0)
[2022-03-31 06:00] LABS: Alanine Aminotransferase 22 U/L (0-40); Albumin Level 4.5 g/dL (3.5-5.0); Alkaline Phosphatase 60 U/L (39-117); Anion Gap 12 (12-20); Aspartate Amino Transferase 18 U/L (5-37); Bilirubin Total 0.3 mg/dL (0.0-1.0); Blood Urea Nitrogen 10 mg/dL (9-16); Calcium 9.4 mg/dL (8.4-10.2); Carbon Dioxide 25 mmol/L (22-29); Chloride 104 mmol/L (96-108); Estimated Glomerular Filt Rate > 60; Glucose Random 119 mg/dL (60-115); Potassium 3.6 mmol/L (3.3-5.1); Sodium 137 mmol/L (135-145); Total Protein 7.6 g/dL (6.5-8.0)
[2022-03-31 06:02] LABS: COVID-19 Test Positive (Negative)
[2022-03-31] MEDS: 0.9 % Sodium Chloride 1,000 ML 999 ML IVCONT (06:06)
[2022-03-31 06:09] LABS: Bilirubin Direct 0.2 mg/dL (0.0-0.5); Magnesium 2.4 mg/dL (1.6-2.6)
[2022-03-31 06:20] VITALS: BP 123/90; PULSE 103; RESP 19; TEMP 38; O2SAT 97
[2022-03-31] MEDS: Acetaminophen 325 MG TABLET 650 MG PO (06:41)
== END 2022-03-31 07:41 | disposition home or self-care (01) ==
PROVIDERS: Emergency Provider Emergency Medicine; PCP Pediatrics
DX: U07.1 COVID-19 (principal); R07.89 Other chest pain; F14.10 Cocaine abuse, uncomplicated; Z79.899 Other long term (current) drug therapy
CPT/HCPCS: 36415; 71045; 80053; 82248; 83735; 84484; 85025; 87635; 93005; 96360; 99284

== ENCOUNTER 2022-04-14 04:52 | Emergency (ER) | payer MEDICAID, SELFPAY ==
--- NOTE | ~2022-04-14 | XR_ITS ---
EXAMINATION: XR CHEST CLINICAL INFORMATION: Chest pain, pressure COMPARISON: 03/31/2022 TECHNIQUE: Frontal view of the chest was obtained. FINDINGS: The lungs are clear with no focal consolidation. No evidence of pneumothorax, pulmonary edema, or pleural effusions. The cardiomediastinal silhouette is unremarkable. No acute osseous findings. XR/XR chest 1V IMPRESSION: No acute cardiopulmonary findings.
--- NOTE | 2022-04-14 04:58 | ECG_ITS ---
Test Reason : CHEST PRESSURE Blood Pressure : / mmHG Vent. Rate : 102 BPM Atrial Rate : 102 BPM P-R Int : 156 ms QRS Dur : 088 ms QT Int : 334 ms P-R-T Axes : 033 020 028 degrees QTc Int : 435 ms Sinus tachycardia Otherwise normal ECG When compared with ECG of 31-MAR-2022 05:25, No significant change was found Referred By: Generic ED Physician Electronically Signed By:Hernesto Wilson
[2022-04-14 05:00] VITALS: BP 127/84; PULSE 107; RESP 18; TEMP 36.9; O2SAT 97; BMI 30.1
[2022-04-14 05:10] LABS: MANUAL DIFF FLAG NO
[2022-04-14 05:11] LABS: Basophils Absolute Auto 0.1 X10*3/uL (0.0-0.2); Basophils Percent Auto 0.7 % (0-2); Eosinophils Absolute Auto 0.2 X10*3/uL (0.0-0.4); Hematocrit 42.9 % (42.0-52.0); Hemoglobin 15.1 g/dl (14.0-18.0); Imm Gran Abs Auto 0.03 X10*3/uL (0.00-0.03); Imm Gran Pct Auto 0.3 % (0.0-0.4); Lymphocytes Absolute Auto 2.6 X10*3/uL (1.2-4.9); Lymphocytes Percent Auto 26.5 % (20-40); Mean Corpuscular HGB Conc 35.2 g/dl (31.0-36.0); Mean Corpuscular Hemoglobin 31.2 pg (27.0-33.0); Mean Corpuscular Volume 88.6 fL (80.0-98.0); Mean Platelet Volume 9.7 fL (9.4-12.4); Monocytes Absolute Auto 0.6 X10*3/uL (0.1-1.2); Monocytes Percent Auto 6.4 % (2-11); Neutrophils Absolute Auto 6.3 x10*3/uL (2.0-8.3); Neutrophils Percent Auto 64.1 % (45-73); Platelet Count 386 X10*3/uL (160-400); Red Blood Count 4.84 X10*6/uL (4.60-5.80); Red Cell Distribution Width 11.6 % (11.0-16.0); White Blood Count 9.8 X10*3/uL (4.8-10.8)
[2022-04-14 05:31] LABS: Troponin-I High Sensitivity < 3.5 ng/L (<3.5-35.0)
[2022-04-14 05:37] LABS: Anion Gap 13 (12-20); Blood Urea Nitrogen 10 mg/dL (9-16); Calcium 9.6 mg/dL (8.4-10.2); Carbon Dioxide 24 mmol/L (22-29); Chloride 103 mmol/L (96-108); Creatinine Clr Calc Pharmacy 122.2; Estimated Glomerular Filt Rate > 60; Glucose Random 131 mg/dL (60-115); Potassium 3.8 mmol/L (3.3-5.1); Sodium 136 mmol/L (135-145)
--- NOTE | 2022-04-14 05:52 | ED_ITS ---
HPI - General Adult General Chief complaint: ETOH/Substance Use Stated complaint: Chest burning/Chest spasm Time Seen by Provider: 04/14/22 05:03 Source: patient Mode of arrival: ambulatory Limitations: no limitations History of Present Illness HPI narrative: 26-year-old male presents to the emergency department with complaints of burning chest X2 hours status post using a large amount of methamphetamines which he is getting off the street. Patient tells me he uses 1 g a day. Patient tells me he has to use a few times a month however now he has been using daily for 7-10 days. He tells me he last used 4-5 hours ago. He tells me he is having a burning sensation to his left chest. He denies shortness of breath, palpitations, lower extremity pain. He denies any drugs or tobacco use. He also denies any other drug use. Patient tells me that usually after using he does not feel well however this feels different. He denies visual, auditory and tactile hallucinations. Denies suicidal ideation and homicidal ideation. Patient is not seeking detox at this time and he tells me he has a good support system at home. Onset (ago): hour(s) (3) Severity: moderate Quality: burning Pain Consistency: constant Relieving factors: none Exacerbating factors: none Associated symptoms: denies other symptoms Treatments prior to arrival: none Related Data Home Medications Medication Instructions Recorded Confirmed famotidine 20 mg tablet 1 tab PO BID 09/20/21 Previous Rx's Medication Instructions Recorded lorazepam 0.5 mg tablet 0.5 mg PO DAILY #15 tab 09/25/21 lorazepam 1 mg tablet 1 mg PO BEDTIME #15 tab 09/25/21 propranolol 10 mg tablet 10 mg PO BID #60 tab 09/25/21 sertraline 50 mg tablet 50 mg PO DAILY #30 tab 09/25/21 Allergies Allergy/AdvReac Type Severity Reaction Status Date / Time No Known Allergies Allergy Verified 04/13/21 00:38 Review of Systems Review of Systems: Constitutional : No Weight loss, No Fever, No Chills, No Fatigue, No Malaise ENT/Mouth : No sore throat, No Rhinorrhea Eyes: No Eye Pain, No Swelling, No Redness Cardiovascular : + Chest Pain/ disocmfort, No SOB, No Dyspnea on Exertion, No Orthopnea, No Edema, No Palpitations Respiratory : No Cough, No Sputum, No Wheezing Gastrointestinal : No Nausea, No Vomiting, No Diarrhea, No Constipation, No abdominal Pain, No Hematochezia, No Melena Genitourinary : No Dysuria, No Urinary Frequency, No Hematuria, Musculoskeletal : No joint pain, No Myalgias, No Joint Swelling Skin : No Skin Lesions, No rash Neuro : No Weakness, No Numbness, No Dizziness, No Headache Psych : No Anxiety/Panic, No Depression All other systems reviewed and are negative Yes all other systems are reviewed and are negative COUNTS INCLUDE 234 BEDS AT THE [facility] Past Medical History Attestation statement: The following information was validated with the patient. Source: old records reviewed and nursing notes reviewed Social History Social History Household Members: Family Household Members Other:: Mother and Step-Father Housing: House Do you presently have visiting nurse or other home services: No Alcohol intake: unknown Patient Tobacco Use Status: Never used Tobacco Use of substances other than those prescribed or required for medical reasons: Yes Substance Use Type: Amphetamines Last Used Substance: Hours (ago) Any prior treatment program specific to substance use: No Advance Directives: No service: No Sexual orientation: Straight/Heterosexual Physical Exam ED Vital Signs: Vital Signs - 24 hr 04/14/22 05:00 Temperature 98.5 F Pulse Rate 107 H Respiratory Rate 18 Blood Pressure 127/84 Pulse Oximetry 97 BMI result Body Mass Index 30.1 Vital signs stable, slightly tachycardic likely secondary to anxiety/substance abuse. Appearance: Alert.? Oriented X3.? No acute distress.? Patient appears slightly anxious. Head: Normocephalic, atraumatic, no step-offs or deformities Eyes: Pupils equal, round and reactive to light.? ENT: Pharynx normal.? Neck: Normal inspection.? Neck supple.? CVS: Normal heart rate and rhythm.? Pulses normal.? Respiratory: No respiratory distress.? Breath sounds normal.? Abdomen: Soft and nontender.? Skin: Skin warm and dry.? Normal skin color.? Normal skin turgor.? Extremities: No lower extremity edema.? No calf ttp. 5/5 strength to bilateral upper and lower extremities Back: No midline tenderness, no C-spine tenderness, full range of motion, no CVA tenderness bilaterally Neuro: Oriented X 3.? No motor deficit.? No sensory deficit. CN 2-12 intact Course Reevaluation(s) Reevaluation #1: CBC within normal limits. Chemistry with no acute electrolyte abnormalities requiring intervention. Chest x-ray with no acute findings. Troponin negative. EKG nonischemic. Unlikely ACS. Patient's symptoms likely secondary to substance abuse/inhalation. Patient does not want stay for observation. He would not like detox. Does not want to speak to the crisis team. At this time patient will be discharged home with strict return precautions advised him to return with new or worsening symptoms. Educated him on substance abuse. Offered to give him pamphlets for detox he did not want them. He tells me has a good support system at home. Denies SI and HI. Patient like to go home since his cardiac enzymes and EKG are normal. Comfortable with discharge Time: 06:11 Medical Decision Making [facility] Narrative Medical decision making narrative: [id number] 26-year-old male presents to the emergency department with complaints of chest burning/discomfort status post methamphetamine use. Physical examination benign. To note upon chart review was noted the patient was seen here on 03/31/2022 for the same complaint. With a benign workup as well. Plan at this time is basic labs, EKG. Will rule out ACS although I suspect that chest discomfort is likely secondary to inhalation. I do not suspect PE at this time, Wells criteria is 0. Medical Records Medical records reviewed: Yes I reviewed the patient's medical records. Lab Data Lab results reviewed: Yes I reviewed the patient's lab results. Result diagrams: 04/14/22 05:06 04/14/22 05:06 Labs: Lab Results 04/14/22 04/14/22 04/14/22 Range/Units 05:06 05:06 05:06 WBC 9.8 (4.8-10.8) X10*3/uL RBC 4.84 (4.60-5.80) X10*6/uL Hgb 15.1 (14.0-18.0) g/dl Hct 42.9 (42.0-52.0) % MCV 88.6 (80.0-98.0) fL MCH 31.2 (27.0-33.0) pg MCHC 35.2 (31.0-36.0) g/dl RDW 11.6 (11.0-16.0) % Plt Count 386 (160-400) X10*3/uL MPV 9.7 (9.4-12.4) fL Immature Gran % (Auto) 0.3 (0.0-0.4) % Neut % (Auto) 64.1 (45-73) % Lymph % (Auto) 26.5 (20-40) % [place] % (Auto) 6.4 (2-11) % Eos % (Auto) 2.0 (0-4) % Baso % (Auto) 0.7 (0-2) % Lymph # (Auto) 2.6 (1.2-4.9) X10*3/uL [place] # (Auto) 0.6 (0.1-1.2) X10*3/uL Eos # (Auto) 0.2 (0.0-0.4) X10*3/uL Baso # (Auto) 0.1 (0.0-0.2) X10*3/uL Abs Immat Gran (auto) 0.03 (0.00-0.03) X10*3/uL Absolute Neuts (auto) 6.3 (2.0-8.3) x10*3/uL Absolute Nucleated RBC 0.000 (0.0-0.012) X10*3/uL Nucleated RBC % (auto) 0.0 (0.0-0.2) /100WBC Sodium 136 (135-145) mmol/L Potassium 3.8 (3.3-5.1) mmol/L Chloride 103 (96-108) mmol/L Carbon Dioxide 24 (22-29) mmol/L Anion Gap 13 (12-20) BUN 10 (9-16) mg/dL Creatinine 1.07 (0.5-1.4) mg/dL Estim Creat Clear Calc 122.2 Estimated GFR > 60 Random Glucose 131 H (60-115) mg/dL Calcium 9.6 (8.4-10.2) mg/dL Troponin I High Sens < 3.5 (<3.5-35.0) ng/L ECG Data Attestation: I personally reviewed and interpreted this ECG as follows: Prior ECG tracings: available for review Interpretation: Ventricular rate of 102, NC normal, QRS normal, QT/QTC normal. EKG shows sinus tachycardia no ST elevations or inversions concerning for ischemia. No significant changes when compared to EKG of 03/31/2022. Critical Care Time Critical Care Time Critical Care Time: No Discharge Plan Discharge Clinical Impression: Methamphetamine abuse, Chest pain not due to acute coronary syndrome Patient Disposition: Home, Self-Care Instructions: Chest Pain (ED), Methamphetamine Abuse (ED), Chest Wall Pain (ED) Additional Instructions: Take your medications as prescribed. If you were prescribed antibiotics today, it is important that you take your medication to their entirety, do not skip any doses, do not finish them early. Follow-up with your primary care provider this week. Return to the emergency department with new or worsening symptoms. Such as fevers, chills, chest pain, shortness of breath, nausea, vomiting, dizziness, headache, vision changes, lethargy In case of emergency call 911 Your cardiac enzyme was negative in your EKG showed no signs of heart attack. Likely your chest discomfort is secondary to inhalation. Your chest x-ray was normal. You did not want detox today nor did you want to speak to anyone from the crisis team. Prescriptions: No Action famotidine 20 mg tablet 1 tab PO BID 0RF propranolol 10 mg Tablet 10 mg PO BID Qty: 60 0RF Protocol: Hold for SBP/HR < HOLD for SBP < : 90 HOLD for HR < : 60 lorazepam 0.5 mg Tablet 0.5 mg PO DAILY Qty: 15 0RF lorazepam 1 mg Tablet 1 mg PO BEDTIME Qty: 15 0RF sertraline 50 mg Tablet 50 mg PO DAILY Qty: 30 0RF Referrals: [facility] [Provider Group] - 1 day Kiel Carr MD [Primary Care Provider] - 2 days
== END 2022-04-14 06:18 | disposition home or self-care (01) ==
PROVIDERS: Emergency Provider Emergency Medicine; PCP Pediatrics
DX: F15.188 Other stimulant abuse with other stimulant-induced disorder (principal); R07.89 Other chest pain; Z79.899 Other long term (current) drug therapy
CPT/HCPCS: 36415; 71045; 80048; 84484; 85025; 93005; 99284

== ENCOUNTER 2022-06-12 16:23 | Emergency (ER) | payer MEDICAID, SELFPAY ==
--- NOTE | ~2022-06-12 | XR_ITS ---
EXAMINATION: XR CHEST CLINICAL INFORMATION: Chest pain COMPARISON: 04/14/2022 TECHNIQUE: Frontal view of the chest was obtained. FINDINGS: No significant abnormality is noted involving the heart, lungs, mediastinum, bony thorax or soft tissues. XR/XR chest 1V IMPRESSION: No acute pulmonary disease.
--- NOTE | 2022-06-12 16:25 | ECG_ITS ---
Test Reason : CHEST PAIN Blood Pressure : / mmHG Vent. Rate : 098 BPM Atrial Rate : 098 BPM P-R Int : 152 ms QRS Dur : 086 ms QT Int : 340 ms P-R-T Axes : 067 046 047 degrees QTc Int : 434 ms Normal sinus rhythm Normal ECG When compared with ECG of 14-APR-2022 05:01, No significant change was found Referred By: Generic ED Physician Electronically Signed By:Hernesto Wilson
[2022-06-12 16:26] VITALS: BP 125/84; PULSE 96; RESP 18; TEMP 37; O2SAT 99; BMI 28.7
[2022-06-12 16:39] LABS: MANUAL DIFF FLAG NO
[2022-06-12 16:40] LABS: Basophils Absolute Auto 0.1 X10*3/uL (0.0-0.2); Basophils Percent Auto 1.1 % (0-2); Eosinophils Absolute Auto 0.2 X10*3/uL (0.0-0.4); Eosinophils Percent Auto 3.5 % (0-4); Hematocrit 42.9 % (42.0-52.0); Imm Gran Abs Auto 0.01 X10*3/uL (0.00-0.03); Imm Gran Pct Auto 0.2 % (0.0-0.4); Lymphocytes Absolute Auto 1.7 X10*3/uL (1.2-4.9); Mean Corpuscular Hemoglobin 30.5 pg (27.0-33.0); Mean Corpuscular Volume 87.4 fL (80.0-98.0); Mean Platelet Volume 9.5 fL (9.4-12.4); Monocytes Absolute Auto 0.5 X10*3/uL (0.1-1.2); Monocytes Percent Auto 7.7 % (2-11); Neutrophils Absolute Auto 4.1 x10*3/uL (2.0-8.3); Neutrophils Percent Auto 61.5 % (45-73); Platelet Count 341 X10*3/uL (160-400); Red Blood Count 4.91 X10*6/uL (4.60-5.80); Red Cell Distribution Width 12.1 % (11.0-16.0); White Blood Count 6.7 X10*3/uL (4.8-10.8)
[2022-06-12 17:02] LABS: Alanine Aminotransferase 30 U/L (0-40); Albumin Level 4.7 g/dL (3.5-5.0); Alkaline Phosphatase 69 U/L (39-117); Anion Gap 12 (12-20); Aspartate Amino Transferase 26 U/L (5-37); Bilirubin Total 0.8 mg/dL (0.0-1.0); Blood Urea Nitrogen 11 mg/dL (9-16); Calcium 9.3 mg/dL (8.4-10.2); Carbon Dioxide 25 mmol/L (22-29); Chloride 103 mmol/L (96-108); Creatinine Clr Calc Pharmacy 125.4; Estimated Glomerular Filt Rate > 60; Glucose Random 181 mg/dL (60-115); Potassium 3.6 mmol/L (3.3-5.1); Sodium 136 mmol/L (135-145); Total Protein 7.7 g/dL (6.5-8.0)
[2022-06-12 17:04] LABS: Troponin-I High Sensitivity < 3.5 ng/L (<3.5-35.0)
== END 2022-06-12 20:13 | disposition left against medical advice (07) ==
PROVIDERS: Emergency Provider Emergency Medicine; PCP Pediatrics
DX: R07.9 Chest pain, unspecified (principal); R06.02 Shortness of breath; F13.20 Sedative, hypnotic or anxiolytic dependence, uncomplicated; F41.1 Generalized anxiety disorder; F33.9 Major depressive disorder, recurrent, unspecified
CPT/HCPCS: 36415; 71045; 80053; 84484; 85025; 93005; 99283

== ENCOUNTER 2022-06-21 00:30 | Emergency (ER) | payer MEDICAID, SELFPAY ==
--- NOTE | 2022-06-21 | ECG_ITS ---
Test Reason : CHEST PAIN Blood Pressure : / mmHG Vent. Rate : 098 BPM Atrial Rate : 098 BPM P-R Int : 148 ms QRS Dur : 080 ms QT Int : 324 ms P-R-T Axes : 050 018 028 degrees QTc Int : 413 ms Normal sinus rhythm Normal ECG When compared with ECG of 12-JUN-2022 16:18, No significant change was found Referred By: Generic ED Physician Electronically Signed By:CHELA JEFFERSON
--- NOTE | ~2022-06-21 | XR_ITS ---
EXAMINATION: XR CHEST CLINICAL INFORMATION: Chest pain COMPARISON: 06/12/2022 TECHNIQUE: Frontal view of the chest was obtained. FINDINGS: No significant abnormality is noted involving the heart, lungs, mediastinum, bony thorax or soft tissues. XR/XR chest 1V IMPRESSION: Unremarkable examination.
[2022-06-21 00:42] VITALS: BP 131/84; PULSE 103; RESP 20; TEMP 36.8; O2SAT 98; BMI 28.7
--- NOTE | 2022-06-21 00:49 | ED.CHESTPAIN ---
HPI - Chest Pain General Chief Complaint: Chest Pain Stated Complaint: SOB, chest pain Time Seen by Provider: 06/21/22 00:49 Source: patient Mode of arrival: ambulatory Limitations: no limitations History of Present Illness HPI narrative: 26 yo male with hx of depression and anxiety states he usually does meth but tonight he did cocaine and crack - smoked it states he was having chest pain and palpitations. He last used about 2 hours ago. He doesn't usually use cocaine and crack. He still has some chest pain. He denies SI. He is unsure if he wants to go to rehab. MD complaint: chest pain Onset (ago): hour(s) (3) Timing of current episode: constant Prior episodes: Yes Onset: associated with drug use Pain location: substernal Pain radiation: none Severity: moderate Quality: tightness Relieving factors: nothing Exacerbating factors: movement Context: other (smoking crack) Associated symptoms: dyspnea and palpitations Treatment prior to arrival: none Related Data Home Medications Medication Instructions Recorded Confirmed famotidine 20 mg tablet 1 tab PO BID 09/20/21 Previous Rx's Medication Instructions Recorded lorazepam 0.5 mg tablet 0.5 mg PO DAILY #15 tabs 09/25/21 lorazepam 1 mg tablet 1 mg PO BEDTIME #15 tabs 09/25/21 propranolol 10 mg tablet 10 mg PO BID #60 tabs 09/25/21 sertraline 50 mg tablet 50 mg PO DAILY #30 tabs 09/25/21 Allergies Allergy/AdvReac Type Severity Reaction Status Date / Time No Known Allergies Allergy Verified 06/21/22 00:42 Review of Systems Review of Systems: Constitutional : No Weight loss, No Fever, No Chills ENT/Mouth : No sore throat, No Rhinorrhea Eyes: No Eye Pain, No Swelling Cardiovascular : pos Chest Pain, pos SOB, no Dyspnea on Exertion, No Orthopnea, No Edema, No Palpitations Respiratory : No Cough, No Sputum Gastrointestinal : no Nausea, No Vomiting, No Diarrhea, No abdominal Pain, No Hematochezia, No Melena Genitourinary : No Dysuria, No Urinary Frequency Musculoskeletal : No joint pain, No Myalgias, No Joint Swelling Skin : No Skin Lesions, No rash Neuro : No Weakness, No Numbness, No Dizziness, No Headache Psych : No Anxiety/Panic, No Depression Heme/Lymph: No Bruising, No Lymphadenopathy Endocrine : No Polyuria, No Polydipsia All other systems reviewed and are negative [facility] Past Medical History Medical History Active substance abuse Generalized anxiety disorder Major depression, recurrent, chronic Social History Social History (Updated 06/21/22 @ 01:21 by Liya Rivera DO) Household Members: Family Household Members Other:: Mother and Step-Father Housing: House Do you presently have visiting nurse or other home services: No Alcohol intake: current Alcohol intake frequency: holidays/special occasions only Alcohol type: beer Patient Tobacco Use Status: Never used Tobacco Use of substances other than those prescribed or required for medical reasons: Yes Substance Use Type: Crack/Cocaine and Methamphetamine Substance Use Frequency: Daily Substance Use Frequency Other:: last couple months have been daily, otherwise once or twice a month. Last Used Substance: Hours (ago) Any prior treatment program specific to substance use: No Advance Directives: No Advance Directives Information Provided: No service: No Sexual orientation: Straight/Heterosexual Physical Exam Vital Signs: Vital Signs: Last Vital Signs Temp 98.7 F 06/21/22 03:43 Pulse 75 06/21/22 03:43 Resp 16 06/21/22 03:43 BP 102/77 06/21/22 03:43 Pulse Ox 97 06/21/22 03:43 O2 Del Method 06/21/22 03:43 BMI result Body Mass Index 28.7 Appearance: Alert. Oriented X3. No acute distress. Eyes: Pupils equal, round and reactive to light. 5mm ENT: Pharynx normal. Neck: Normal inspection. Neck supple. CVS: Normal heart rate and rhythm. Pulses normal. Respiratory: No respiratory distress. Breath sounds normal. Abdomen: Soft and non-tender. Skin: Skin warm and dry. Normal skin color. Normal skin turgor. Extremities: No lower extremity edema. No calf ttp Neuro: Oriented X 3. No motor deficit. No sensory deficit. Course Course Course Narrative: repeat trop negative, VS stable, does not want detox or SUDE evaluation at this time MDM - Chest Pain MDM Narrative Medical decision making narrative: 26 yo male with hx of substance abuse, depression and anxiety presents with chest pain after smoking cocaine and crack. At this time will obtain EKG, troponin x 2, CXR - doubt dissection/PE - he has normal VS, he is not very tachycardic. Will give PO ativan and aspirin. He denies SI. Lab Data Result diagrams: 06/21/22 01:15 06/21/22 01:15 Labs: Lab Results 06/21/22 06/21/22 06/21/22 Range/Units 01:14 01:15 01:15 WBC 9.5 (4.8-10.8) X10*3/uL RBC 5.09 (4.60-5.80) X10*6/uL Hgb 15.6 (14.0-18.0) g/dl Hct 45.5 (42.0-52.0) % MCV 89.4 (80.0-98.0) fL MCH 30.6 (27.0-33.0) pg MCHC 34.3 (31.0-36.0) g/dl RDW 12.3 (11.0-16.0) % Plt Count 359 (160-400) X10*3/uL MPV 9.6 (9.4-12.4) fL Immature Gran % (Auto) 0.3 (0.0-0.4) % Neut % (Auto) 56.8 (45-73) % Lymph % (Auto) 24.5 (20-40) % Campbell % (Auto) 7.0 (2-11) % Eos % (Auto) 10.5 H (0-4) % Baso % (Auto) 0.9 (0-2) % Lymph # (Auto) 2.3 (1.2-4.9) X10*3/uL Campbell # (Auto) 0.7 (0.1-1.2) X10*3/uL Eos # (Auto) 1.0 H (0.0-0.4) X10*3/uL Baso # (Auto) 0.1 (0.0-0.2) X10*3/uL Abs Immat Gran (auto) 0.03 (0.00-0.03) X10*3/uL Absolute Neuts (auto) 5.4 (2.0-8.3) x10*3/uL Absolute Nucleated RBC 0.000 (0.0-0.012) X10*3/uL Nucleated RBC % (auto) 0.0 (0.0-0.2) /100WBC Sodium 139 (135-145) mmol/L Potassium 4.3 (3.3-5.1) mmol/L Chloride 103 (96-108) mmol/L Carbon Dioxide 26 (22-29) mmol/L Anion Gap 14 (12-20) BUN 14 (9-16) mg/dL Creatinine 1.08 (0.5-1.4) mg/dL Estim Creat Clear Calc 118.4 Estimated GFR > 60 Random Glucose 105 D (60-115) mg/dL Calcium 9.8 (8.4-10.2) mg/dL Magnesium 2.0 (1.6-2.6) mg/dL Total Bilirubin 0.5 (0.0-1.0) mg/dL Direct Bilirubin 0.2 (0.0-0.5) mg/dL AST 17 (5-37) U/L ALT 21 (0-40) U/L Alkaline Phosphatase 70 (39-117) U/L Troponin I High Sens < 3.5 (<3.5-35.0) ng/L Total Protein 7.9 (6.5-8.0) g/dL Albumin 4.7 (3.5-5.0) g/dL Urine Opiates Screen (Not Detect) Urine Fentanyl Screen (Not Detect) Ur Barbiturates Screen (Not Detect) Ur Phencyclidine Scrn (Not Detect) Ur Amphetamines Screen (Not Detect) U Benzodiazepines Scrn (Not Detect) Urine Cocaine Screen (Not Detect) U Marijuana (THC) Screen (Not Detect) COVID-19 (ANNETTE) (Negative) COVID-19 Clin Com 06/21/22 06/21/22 06/21/22 Range/Units 01:15 01:43 03:23 WBC (4.8-10.8) X10*3/uL RBC (4.60-5.80) X10*6/uL Hgb (14.0-18.0) g/dl Hct (42.0-52.0) % MCV (80.0-98.0) fL MCH (27.0-33.0) pg MCHC (31.0-36.0) g/dl RDW (11.0-16.0) % Plt Count (160-400) X10*3/uL MPV (9.4-12.4) fL Immature Gran % (Auto) (0.0-0.4) % Neut % (Auto) (45-73) % Lymph % (Auto) (20-40) % Campbell % (Auto) (2-11) % Eos % (Auto) (0-4) % Baso % (Auto) (0-2) % Lymph # (Auto) (1.2-4.9) X10*3/uL Campbell # (Auto) (0.1-1.2) X10*3/uL Eos # (Auto) (0.0-0.4) X10*3/uL Baso # (Auto) (0.0-0.2) X10*3/uL Abs Immat Gran (auto) (0.00-0.03) X10*3/uL Absolute Neuts (auto) (2.0-8.3) x10*3/uL Absolute Nucleated RBC (0.0-0.012) X10*3/uL Nucleated RBC % (auto) (0.0-0.2) /100WBC Sodium (135-145) mmol/L Potassium (3.3-5.1) mmol/L Chloride (96-108) mmol/L Carbon Dioxide (22-29) mmol/L Anion Gap (12-20) BUN (9-16) mg/dL Creatinine (0.5-1.4) mg/dL Estim Creat Clear Calc Estimated GFR Random Glucose (60-115) mg/dL Calcium (8.4-10.2) mg/dL Magnesium (1.6-2.6) mg/dL Total Bilirubin (0.0-1.0) mg/dL Direct Bilirubin (0.0-0.5) mg/dL AST (5-37) U/L ALT (0-40) U/L Alkaline Phosphatase (39-117) U/L Troponin I High Sens < 3.5 (<3.5-35.0) ng/L Total Protein (6.5-8.0) g/dL Albumin (3.5-5.0) g/dL Urine Opiates Screen Not Detected (Not Detect) Urine Fentanyl Screen Not Detected (Not Detect) Ur Barbiturates Screen Not Detected (Not Detect) Ur Phencyclidine Scrn Not Detected (Not Detect) Ur Amphetamines Screen Not Detected (Not Detect) U Benzodiazepines Scrn POSITIVE H (Not Detect) Urine Cocaine Screen POSITIVE H (Not Detect) U Marijuana (THC) Screen Not Detected (Not Detect) COVID-19 (ANNETTE) Negative (Negative) COVID-19 Clin Com See Note ECG Data ECG #1: Attestation: I personally reviewed and interpreted this ECG as follows: ECG interpretation date: 06/21/22 ECG interpretation time: 00:50 Interpretation: Rate: 98 Rhythm: NSR [place]: normal Normal P waves. Normal PAUL. Normal QRS complex. ST T wave : normal no FAYE qTC: normal prior studies: no acute ischemia The study has been interpreted contemporaneously by me. . Discharge Plan Discharge Clinical Impression: Cocaine abuse Chest pain Qualifiers: Chest pain type: precordial pain Qualified Code(s): R07.2 - Precordial pain Patient Disposition: Home, Self-Care Instructions: Chest Pain (ED), Cocaine Abuse (ED) Additional Instructions: return to ED for any worsening symptoms or concerns please consider detox so you can abstain from substances Prescriptions: No Action famotidine 20 mg tablet 1 tab PO BID propranolol 10 mg Tablet 10 mg PO BID Qty: 60 0RF Protocol: Hold for SBP/HR < HOLD for SBP < : 90 HOLD for HR < : 60 lorazepam 0.5 mg Tablet 0.5 mg PO DAILY Qty: 15 0RF lorazepam 1 mg Tablet 1 mg PO BEDTIME Qty: 15 0RF sertraline 50 mg Tablet 50 mg PO DAILY Qty: 30 0RF
[2022-06-21 01:04] VITALS: BP 122/82; PULSE 96; RESP 18; TEMP 36.9; O2SAT 98
[2022-06-21 01:21] LABS: Basophils Absolute Auto 0.1 X10*3/uL (0.0-0.2); Basophils Percent Auto 0.9 % (0-2); Eosinophils Percent Auto 10.5 % (0-4); Hematocrit 45.5 % (42.0-52.0); Hemoglobin 15.6 g/dl (14.0-18.0); Imm Gran Abs Auto 0.03 X10*3/uL (0.00-0.03); Imm Gran Pct Auto 0.3 % (0.0-0.4); Lymphocytes Absolute Auto 2.3 X10*3/uL (1.2-4.9); Lymphocytes Percent Auto 24.5 % (20-40); MANUAL DIFF FLAG NO; Mean Corpuscular HGB Conc 34.3 g/dl (31.0-36.0); Mean Corpuscular Hemoglobin 30.6 pg (27.0-33.0); Mean Corpuscular Volume 89.4 fL (80.0-98.0); Mean Platelet Volume 9.6 fL (9.4-12.4); Monocytes Absolute Auto 0.7 X10*3/uL (0.1-1.2); Neutrophils Absolute Auto 5.4 x10*3/uL (2.0-8.3); Neutrophils Percent Auto 56.8 % (45-73); Platelet Count 359 X10*3/uL (160-400); Red Blood Count 5.09 X10*6/uL (4.60-5.80); Red Cell Distribution Width 12.3 % (11.0-16.0); White Blood Count 9.5 X10*3/uL (4.8-10.8)
[2022-06-21 01:35] LABS: COVID-19 Test Negative (Negative)
[2022-06-21 01:42] LABS: Alanine Aminotransferase 21 U/L (0-40); Albumin Level 4.7 g/dL (3.5-5.0); Alkaline Phosphatase 70 U/L (39-117); Anion Gap 14 (12-20); Aspartate Amino Transferase 17 U/L (5-37); Bilirubin Direct 0.2 mg/dL (0.0-0.5); Bilirubin Total 0.5 mg/dL (0.0-1.0); Blood Urea Nitrogen 14 mg/dL (9-16); Calcium 9.8 mg/dL (8.4-10.2); Carbon Dioxide 26 mmol/L (22-29); Chloride 103 mmol/L (96-108); Creatinine Clr Calc Pharmacy 118.4; Estimated Glomerular Filt Rate > 60; Glucose Random 105 mg/dL (60-115); Potassium 4.3 mmol/L (3.3-5.1); Sodium 139 mmol/L (135-145); Total Protein 7.9 g/dL (6.5-8.0)
[2022-06-21] MEDS: LORazepam 1 MG TABLET 2 MG PO (01:44)
[2022-06-21] MEDS: Aspirin 81 MG TAB.CHEW 324 MG PO (01:45)
[2022-06-21 01:46] LABS: Troponin-I High Sensitivity < 3.5 ng/L (<3.5-35.0)
[2022-06-21 02:05] LABS: Amphetamine Screen Urine Not Detected (Not Detect); Barbiturates, Urine Not Detected (Not Detect); Benzodiazepines Screen Urine POSITIVE (Not Detect); Cannabinoid Screen Urine Not Detected (Not Detect); Cocaine Screen Urine POSITIVE (Not Detect); Fentanyl, urine Not Detected (Not Detect); Opiate Screen Urine Not Detected (Not Detect); Phencyclidine Screen Urine Not Detected (Not Detect)
[2022-06-21 03:43] VITALS: BP 102/77; PULSE 75; RESP 16; TEMP 37.1; O2SAT 97
[2022-06-21 04:00] LABS: Troponin-I High Sensitivity < 3.5 ng/L (<3.5-35.0)
== END 2022-06-21 04:28 | disposition home or self-care (01) ==
PROVIDERS: Emergency Provider Emergency Medicine; PCP Pediatrics
DX: R07.89 Other chest pain (principal); F14.10 Cocaine abuse, uncomplicated; R06.02 Shortness of breath; F41.1 Generalized anxiety disorder; F43.0 Acute stress reaction; Z79.899 Other long term (current) drug therapy; Z20.822 Contact with and (suspected) exposure to COVID-19; Z71.51 Drug abuse counseling and surveillance of drug abuser
CPT/HCPCS: 36415; 71045; 80048; 80076; 80307; 83735; 84484; 85025; 87635; 93005; 99284

== ENCOUNTER 2022-06-26 05:31 | Emergency (ER) | payer MEDICAID, SELFPAY ==
--- NOTE | ~2022-06-26 | XR_ITS ---
EXAMINATION: XR CHEST CLINICAL INFORMATION: Pain COMPARISON: 06/21/2022 TECHNIQUE: 2 views of the chest were obtained. FINDINGS: No significant abnormality is noted involving the heart, lungs, mediastinum, bony thorax or soft tissues. XR/XR chest 2V IMPRESSION: Unremarkable examination.
[2022-06-26 05:40] VITALS: BP 153/96; PULSE 127; RESP 20; TEMP 36.8; O2SAT 98; BMI 28.7
--- NOTE | 2022-06-26 05:44 | ECG_ITS ---
Test Reason : CHEST PAIN Blood Pressure : / mmHG Vent. Rate : 124 BPM Atrial Rate : 124 BPM P-R Int : 158 ms QRS Dur : 076 ms QT Int : 302 ms P-R-T Axes : 051 050 034 degrees QTc Int : 433 ms Sinus tachycardia Otherwise normal ECG When compared with ECG of 21-JUN-2022 00:37, No significant change was found Referred By: Generic ED Physician Electronically Signed By:ABDELRAHMAN FAY MD
--- NOTE | 2022-06-26 06:37 | ED.CHESTPAIN ---
HPI - Chest Pain General Chief Complaint: Chest Pain Stated Complaint: crack&cocaine use; sob, heart palpitations,high bp Time Seen by Provider: 06/26/22 06:37 Source: patient Mode of arrival: ambulatory Limitations: no limitations History of Present Illness MD complaint: chest pain Pertinent past history: other (cocaine abuse) Onset (ago): hour(s) (1) Timing of current episode: constant Prior episodes: Yes Onset: associated with drug use Pain location: substernal Pain radiation: none Severity: moderate Quality: tightness Relieving factors: nothing Exacerbating factors: nothing Context: other ( I used too much cocaine ) Associated symptoms: dyspnea, sense of impending doom and palpitations Treatment prior to arrival: none Related Data Home Medications Medication Instructions Recorded Confirmed famotidine 20 mg tablet 1 tab PO BID 09/20/21 Previous Rx's Medication Instructions Recorded lorazepam 0.5 mg tablet 0.5 mg PO DAILY #15 tabs 09/25/21 lorazepam 1 mg tablet 1 mg PO BEDTIME #15 tabs 09/25/21 propranolol 10 mg tablet 10 mg PO BID #60 tabs 09/25/21 sertraline 50 mg tablet 50 mg PO DAILY #30 tabs 09/25/21 Allergies Allergy/AdvReac Type Severity Reaction Status Date / Time No Known Allergies Allergy Verified 06/21/22 00:42 Review of Systems Review of Systems: Constitutional : No Weight loss, No Fever, No Chills ENT/Mouth : No sore throat, No Rhinorrhea Eyes: No Eye Pain, No Swelling Cardiovascular : pos Chest Pain, pos SOB, no Dyspnea on Exertion, No Orthopnea, No Edema, pos Palpitations Respiratory : No Cough, No Sputum Gastrointestinal : no Nausea, No Vomiting, No Diarrhea, No abdominal Pain, No Hematochezia, No Melena Genitourinary : No Dysuria, No Urinary Frequency Musculoskeletal : No joint pain, No Myalgias, No Joint Swelling Skin : No Skin Lesions, No rash Neuro : No Weakness, No Numbness, No Dizziness, No Headache Psych : pos Anxiety/Panic, No Depression Heme/Lymph: No Bruising, No Lymphadenopathy Endocrine : No Polyuria, No Polydipsia All other systems reviewed and are negative PMFSH Past Medical History Attestation statement: The following information was validated with the patient. Medical History Active substance abuse Generalized anxiety disorder Major depression, recurrent, chronic Social History Social History Household Members: Family Household Members Other:: Mother and Step-Father Housing: House Do you presently have visiting nurse or other home services: No Alcohol intake: current Alcohol intake frequency: holidays/special occasions only Alcohol type: beer Patient Tobacco Use Status: Never used Tobacco Substance Use Type: Crack/Cocaine and Methamphetamine Advance Directives: No Advance Directives Information Provided: Yes service: No Sexual orientation: Straight/Heterosexual Physical Exam Vital Signs: Vital Signs: Last Vital Signs Temp 97.5 F 06/26/22 09:50 Pulse 89 06/26/22 09:50 Resp 14 06/26/22 09:50 BP 103/62 06/26/22 09:50 Pulse Ox 98 06/26/22 09:50 O2 Del Method 06/26/22 09:50 BMI result Body Mass Index 28.7 Appearance: Alert. Oriented X3. No acute distress. Anxious Eyes: Pupils equal, round and reactive to light. ENT: Pharynx normal. Neck: Normal inspection. Neck supple. CVS: tachycardic heart rate and rhythm. Pulses normal. Respiratory: No respiratory distress. Breath sounds normal. Abdomen: Soft and nontender. Skin: Skin warm and dry. Normal skin color. Normal skin turgor. Extremities: No lower extremity edema. No calf ttp Neuro: Oriented X 3. No motor deficit. No sensory deficit. Course Course Course Narrative: medically cleared for addiction medicine team and recovery team - negative trop x 2, VS improved after PO ativan cleared by addiction medicine to follow up on his own MDM - Chest Pain MDM Narrative Medical decision making narrative: 26 yo male with hx of substance abuse who was using cocaine and crack today now has chest pressure, anxiety, palpitations - similar complaint in last week or so at this time labs, EKG, CXR and IV valium ordered. Once medically cleared he agrees to talk to the CARE team about his cocaine abuse Lab Data Result diagrams: 06/26/22 07:29 06/26/22 07:29 Labs: Lab Results 06/26/22 06/26/22 06/26/22 Range/Units 07:29 07:29 07:29 WBC 12.9 H (4.8-10.8) X10*3/uL RBC 5.23 (4.60-5.80) X10*6/uL Hgb 16.2 (14.0-18.0) g/dl Hct 45.0 (42.0-52.0) % MCV 86.0 (80.0-98.0) fL MCH 31.0 (27.0-33.0) pg MCHC 36.0 (31.0-36.0) g/dl RDW 11.9 (11.0-16.0) % Plt Count 399 (160-400) X10*3/uL MPV 9.5 (9.4-12.4) fL Immature Gran % (Auto) 0.8 H (0.0-0.4) % Neut % (Auto) 72.6 (45-73) % Lymph % (Auto) 21.3 (20-40) % Christian % (Auto) 4.0 (2-11) % Eos % (Auto) 0.5 (0-4) % Baso % (Auto) 0.8 (0-2) % Lymph # (Auto) 2.7 (1.2-4.9) X10*3/uL Christian # (Auto) 0.5 (0.1-1.2) X10*3/uL Eos # (Auto) 0.1 (0.0-0.4) X10*3/uL Baso # (Auto) 0.1 (0.0-0.2) X10*3/uL Abs Immat Gran (auto) 0.10 H (0.00-0.03) X10*3/uL Absolute Neuts (auto) 9.4 H (2.0-8.3) x10*3/uL Absolute Nucleated RBC 0.000 (0.0-0.012) X10*3/uL Nucleated RBC % (auto) 0.0 (0.0-0.2) /100WBC Sodium 139 (135-145) mmol/L Potassium 4.1 (3.3-5.1) mmol/L Chloride 102 (96-108) mmol/L Carbon Dioxide 23 (22-29) mmol/L Anion Gap 18 (12-20) BUN 10 (9-16) mg/dL Creatinine 0.99 (0.5-1.4) mg/dL Estim Creat Clear Calc 129.2 Estimated GFR > 60 Random Glucose 86 (60-115) mg/dL Calcium 9.5 (8.4-10.2) mg/dL Troponin I High Sens < 3.5 (<3.5-35.0) ng/L Urine Opiates Screen (Not Detect) Urine Fentanyl Screen (Not Detect) Ur Barbiturates Screen (Not Detect) Ur Phencyclidine Scrn (Not Detect) Ur Amphetamines Screen (Not Detect) U Benzodiazepines Scrn (Not Detect) Urine Cocaine Screen (Not Detect) U Marijuana (THC) Screen (Not Detect) 06/26/22 06/26/22 Range/Units 09:36 10:14 WBC (4.8-10.8) X10*3/uL RBC (4.60-5.80) X10*6/uL Hgb (14.0-18.0) g/dl Hct (42.0-52.0) % MCV (80.0-98.0) fL MCH (27.0-33.0) pg MCHC (31.0-36.0) g/dl RDW (11.0-16.0) % Plt Count (160-400) X10*3/uL MPV (9.4-12.4) fL Immature Gran % (Auto) (0.0-0.4) % Neut % (Auto) (45-73) % Lymph % (Auto) (20-40) % Christian % (Auto) (2-11) % Eos % (Auto) (0-4) % Baso % (Auto) (0-2) % Lymph # (Auto) (1.2-4.9) X10*3/uL Christian # (Auto) (0.1-1.2) X10*3/uL Eos # (Auto) (0.0-0.4) X10*3/uL Baso # (Auto) (0.0-0.2) X10*3/uL Abs Immat Gran (auto) (0.00-0.03) X10*3/uL Absolute Neuts (auto) (2.0-8.3) x10*3/uL Absolute Nucleated RBC (0.0-0.012) X10*3/uL Nucleated RBC % (auto) (0.0-0.2) /100WBC Sodium (135-145) mmol/L Potassium (3.3-5.1) mmol/L Chloride (96-108) mmol/L Carbon Dioxide (22-29) mmol/L Anion Gap (12-20) BUN (9-16) mg/dL Creatinine (0.5-1.4) mg/dL Estim Creat Clear Calc Estimated GFR Random Glucose (60-115) mg/dL Calcium (8.4-10.2) mg/dL Troponin I High Sens < 3.5 (<3.5-35.0) ng/L Urine Opiates Screen Not Detected (Not Detect) Urine Fentanyl Screen Not Detected (Not Detect) Ur Barbiturates Screen Not Detected (Not Detect) Ur Phencyclidine Scrn Not Detected (Not Detect) Ur Amphetamines Screen Not Detected (Not Detect) U Benzodiazepines Scrn Not Detected (Not Detect) Urine Cocaine Screen POSITIVE H (Not Detect) U Marijuana (THC) Screen Not Detected (Not Detect) ECG Data ECG #1: Attestation: I personally reviewed and interpreted this ECG as follows: ECG interpretation date: 06/26/22 ECG interpretation time: 07:18 Interpretation: Rate: 124 Rhythm: sinus tachycardia Max: normal Normal P waves. Normal PAUL. Normal QRS complex. ST T wave : normal no FAYE qTC: normal prior studies: no acute ischemia The study has been interpreted contemporaneously by me. . Discharge Plan Discharge Clinical Impression: Cocaine abuse, Atypical chest pain Patient Disposition: Home, Self-Care Instructions: Chest Pain (ED), Cocaine Abuse (ED) Additional Instructions: return to ED for any worsening symptoms or concerns please consider detox Prescriptions: No Action famotidine 20 mg tablet 1 tab PO BID propranolol 10 mg Tablet 10 mg PO BID Qty: 60 0RF Protocol: Hold for SBP/HR < HOLD for SBP < : 90 HOLD for HR < : 60 lorazepam 0.5 mg Tablet 0.5 mg PO DAILY Qty: 15 0RF lorazepam 1 mg Tablet 1 mg PO BEDTIME Qty: 15 0RF sertraline 50 mg Tablet 50 mg PO DAILY Qty: 30 0RF
[2022-06-26 07:31] VITALS: BP 137/88; PULSE 113; RESP 18; TEMP 36.8; O2SAT 96
[2022-06-26 07:37] LABS: MANUAL DIFF FLAG NO
[2022-06-26 07:38] LABS: Basophils Absolute Auto 0.1 X10*3/uL (0.0-0.2); Basophils Percent Auto 0.8 % (0-2); Eosinophils Absolute Auto 0.1 X10*3/uL (0.0-0.4); Eosinophils Percent Auto 0.5 % (0-4); Hemoglobin 16.2 g/dl (14.0-18.0); Imm Gran Pct Auto 0.8 % (0.0-0.4); Lymphocytes Absolute Auto 2.7 X10*3/uL (1.2-4.9); Lymphocytes Percent Auto 21.3 % (20-40); Mean Platelet Volume 9.5 fL (9.4-12.4); Monocytes Absolute Auto 0.5 X10*3/uL (0.1-1.2); Neutrophils Absolute Auto 9.4 x10*3/uL (2.0-8.3); Neutrophils Percent Auto 72.6 % (45-73); Platelet Count 399 X10*3/uL (160-400); Red Blood Count 5.23 X10*6/uL (4.60-5.80); Red Cell Distribution Width 11.9 % (11.0-16.0); White Blood Count 12.9 X10*3/uL (4.8-10.8)
[2022-06-26 08:00] LABS: Troponin-I High Sensitivity < 3.5 ng/L (<3.5-35.0)
[2022-06-26 08:06] LABS: Anion Gap 18 (12-20); Blood Urea Nitrogen 10 mg/dL (9-16); Calcium 9.5 mg/dL (8.4-10.2); Carbon Dioxide 23 mmol/L (22-29); Chloride 102 mmol/L (96-108); Creatinine Clr Calc Pharmacy 129.2; Estimated Glomerular Filt Rate > 60; Glucose Random 86 mg/dL (60-115); Potassium 4.1 mmol/L (3.3-5.1); Sodium 139 mmol/L (135-145)
[2022-06-26] MEDS: 0.9 % Sodium Chloride 1,000 ML 999 ML IV (08:32)
[2022-06-26 08:33] VITALS: BP 130/83; PULSE 95; RESP 20; TEMP 36.6; O2SAT 96
--- NOTE | 2022-06-26 08:38 | PC.NURSE ---
rosales ya . leslye . heart rate regular on 95 on phototypesetting equipment monitor . lungs clear . skin pink warm and dry . abdomen soft , non tender , positive bowel sounds in all four quadrants. patient complains of headache and chest discomfort related to smoking crack this morning prior to Ed visit . IV placed in left wrist . fluids hung as ordered . patient medicated as ordered . labs obtained . patient aware of plan of care .
[2022-06-26] MEDS: LORazepam 1 MG TABLET 2 MG PO (08:46)
[2022-06-26 09:50] VITALS: BP 103/62; PULSE 89; RESP 14; TEMP 36.4; O2SAT 98
[2022-06-26 10:02] LABS: Troponin-I High Sensitivity < 3.5 ng/L (<3.5-35.0)
[2022-06-26 10:36] LABS: Amphetamine Screen Urine Not Detected (Not Detect); Barbiturates, Urine Not Detected (Not Detect); Benzodiazepines Screen Urine Not Detected (Not Detect); Cannabinoid Screen Urine Not Detected (Not Detect); Cocaine Screen Urine POSITIVE (Not Detect); Fentanyl, urine Not Detected (Not Detect); Opiate Screen Urine Not Detected (Not Detect); Phencyclidine Screen Urine Not Detected (Not Detect)
--- NOTE | 2022-06-26 12:50 | MHC.RECOVRN ---
Met with pt prior to dc regarding substance use. Pt reports using cocaine, INH, $40 every other day. Pt reports hx methamphetamine use, last use a couple months ago. Pt states I stopped doing meth and then I went to crack. Pt denies hx tx JUANPABLO. Discussed recovery supports and resources, including ATS. Pt states I would feel like the odd one out since I don't use heroin. Pt interested in [facility], t/w will send referral. Pt declines other referrals. Provided with t/w contact information if needed.
== END 2022-06-26 11:04 | disposition home or self-care (01) ==
PROVIDERS: Emergency Provider Emergency Medicine; PCP Pediatrics
DX: R07.89 Other chest pain (principal); F14.10 Cocaine abuse, uncomplicated; Z79.899 Other long term (current) drug therapy
CPT/HCPCS: 36415; 71046; 80048; 80307; 84484; 85025; 93005; 99283; 99285

== ENCOUNTER 2022-11-30 21:26 | Emergency (ER) | payer MEDICAID, SELFPAY ==
--- NOTE | 2022-11-30 | ECG_ITS ---
Test Reason : CHEST PAIN Blood Pressure : / mmHG Vent. Rate : 113 BPM Atrial Rate : 113 BPM P-R Int : 154 ms QRS Dur : 082 ms QT Int : 322 ms P-R-T Axes : 070 067 060 degrees QTc Int : 441 ms Sinus tachycardia Otherwise normal ECG When compared with ECG of 26-JUN-2022 05:48, No significant change was found Referred By: Generic ED Physician Electronically Signed By:Hernesto Wilson
--- NOTE | ~2022-11-30 | XR_ITS ---
EXAMINATION: XR CHEST CLINICAL INFORMATION: Chest pain COMPARISON: 06/26/2022 TECHNIQUE: Frontal view of the chest was obtained. FINDINGS: Cardiac leads overlie the chest. The lungs are well expanded. There is no focal consolidation, edema, or effusion. No pneumothorax. The cardiomediastinal silhouette is within normal limits. No acute osseous abnormality. XR/XR chest 1V IMPRESSION: Clear lungs.
[2022-11-30 21:27] VITALS: BP 126/94; PULSE 115; RESP 18; TEMP 36.6; O2SAT 97; BMI 28.7
[2022-11-30 21:53] LABS: MANUAL DIFF FLAG NO
[2022-11-30 21:55] LABS: Basophils Absolute Auto 0.1 X10*3/uL (0.0-0.2); Basophils Percent Auto 0.8 % (0-2); Eosinophils Absolute Auto 0.4 X10*3/uL (0.0-0.4); Eosinophils Percent Auto 4.8 % (0-4); Hematocrit 47.1 % (42.0-52.0); Hemoglobin 16.2 g/dl (14.0-18.0); Imm Gran Abs Auto 0.02 X10*3/uL (0.00-0.03); Imm Gran Pct Auto 0.3 % (0.0-0.4); Mean Corpuscular HGB Conc 34.4 g/dl (31.0-36.0); Mean Corpuscular Hemoglobin 30.1 pg (27.0-33.0); Mean Corpuscular Volume 87.5 fL (80.0-98.0); Mean Platelet Volume 9.8 fL (9.4-12.4); Monocytes Absolute Auto 0.5 X10*3/uL (0.1-1.2); Monocytes Percent Auto 6.3 % (2-11); Neutrophils Absolute Auto 4.9 x10*3/uL (2.0-8.3); Neutrophils Percent Auto 62.8 % (45-73); Platelet Count 383 X10*3/uL (160-400); Red Blood Count 5.38 X10*6/uL (4.60-5.80); Red Cell Distribution Width 11.7 % (11.0-16.0); White Blood Count 7.8 X10*3/uL (4.8-10.8)
[2022-11-30 22:14] LABS: Alanine Aminotransferase 18 U/L (0-40); Albumin Level 4.9 g/dL (3.5-5.0); Alkaline Phosphatase 60 U/L (39-117); Anion Gap 15 (12-20); Aspartate Amino Transferase 17 U/L (5-37); Bilirubin Total 0.5 mg/dL (0.0-1.0); Blood Urea Nitrogen 7 mg/dL (9-16); Calcium 10.1 mg/dL (8.4-10.2); Carbon Dioxide 23 mmol/L (22-29); Chloride 105 mmol/L (96-108); Creatinine Clr Calc Pharmacy 125.5; Estimated Glomerular Filt Rate > 60; Glucose Random 89 mg/dL (60-115); Potassium 4.1 mmol/L (3.3-5.1); Sodium 139 mmol/L (135-145)
[2022-11-30 22:20] LABS: Troponin-I High Sensitivity < 3.5 ng/L (<3.5-35.0)
[2022-11-30 23:16] VITALS: BP 117/82; PULSE 94; RESP 16; TEMP 36.8; O2SAT 97
--- NOTE | 2022-11-30 23:17 | MHC.EDTECH ---
this pct just assumed care of pt ,vitals sign taken ,pt got change into hospital attire ,pt ask for some water ,rn hung said it was ok to give pt water .
--- NOTE | 2022-11-30 23:31 | ED_ITS ---
HPI - Chest Pain General Chief Complaint: Chest Pain Stated Complaint: Chest pain Time Seen by Provider: 11/30/22 23:23 Source: patient Mode of arrival: ambulatory Limitations: no limitations History of Present Illness HPI narrative: Patient's history of frequent chest pains been here multiple times workup negative uses meth which have been missed restarted using for 3 weeks use 3 hours ago and since then been having the pain which increases on deep inspiration localized to left side no cough no shortness of breath vital stable Related Data Home Medications Medication Instructions Recorded Confirmed famotidine 20 mg tablet 1 tab PO BID 09/20/21 Previous Rx's Medication Instructions Recorded lorazepam 0.5 mg tablet 0.5 mg PO DAILY #15 tabs 09/25/21 lorazepam 1 mg tablet 1 mg PO BEDTIME #15 tabs 09/25/21 propranolol 10 mg tablet 10 mg PO BID #60 tabs 09/25/21 sertraline 50 mg tablet 50 mg PO DAILY #30 tabs 09/25/21 Allergies Allergy/AdvReac Type Severity Reaction Status Date / Time No Known Allergies Allergy Verified 06/21/22 00:42 Review of Systems Review of Systems: Yes all other systems are reviewed and are negative [facility] Past Medical History Medical History Active substance abuse Generalized anxiety disorder Major depression, recurrent, chronic Social History Social History Household Members: Family Household Members Other:: Mother and Step-Father Housing: House Do you presently have visiting nurse or other home services: No Alcohol intake: current Alcohol intake frequency: holidays/special occasions only Alcohol type: beer Patient Tobacco Use Status: Never used Tobacco Substance Use Type: Crack/Cocaine and Methamphetamine Advance Directives: No Advance Directives Information Provided: Yes service: No Sexual orientation: Straight/Heterosexual Physical Exam Vital Signs: Vital Signs: Last Vital Signs Temp 98.2 F 11/30/22 23:16 Pulse 94 11/30/22 23:16 Resp 16 11/30/22 23:16 BP 117/82 11/30/22 23:16 Pulse Ox 97 11/30/22 23:16 O2 Del Method 11/30/22 23:16 BMI result Body Mass Index 28.7 Appearance: Alert. Oriented X3. No acute distress. Eyes: PERRLA, No Nystagmus ENT: Pharynx normal. Oral Mucosa moist Neck: Normal inspection. Neck supple. CVS: Normal heart rate and rhythm. Pulses normal. Respiratory: No respiratory distress. Equal air entry bilateral, no wheezin g/rales/rhonchi Abdomen: Soft and nontender. Bowel sounds are present, no mass palpable, no CVA tenderness Skin: Skin warm and dry. Normal skin color. Normal skin turgor. Extremities: No lower extremity edema. No calf tenderness Neuro: Oriented X 3. No motor deficit. Medical Decision Making Medical Decision Making [facility] Narrative: Patient with left-sided chest pain after using meth chest x-ray negative lab workup negative likely the chemical induced pneumonitis. Patient advised to stop using meth Lab Data [facility] Lab Attestation statement: I reviewed the patient's lab results. 11/30/22 21:48 11/30/22 21:48 Labs: Lab Results 11/30/22 11/30/22 11/30/22 Range/Units 21:48 21:48 21:48 WBC 7.8 (4.8-10.8) X10*3/uL RBC 5.38 (4.60-5.80) X10*6/uL Hgb 16.2 (14.0-18.0) g/dl Hct 47.1 (42.0-52.0) % MCV 87.5 (80.0-98.0) fL MCH 30.1 (27.0-33.0) pg MCHC 34.4 (31.0-36.0) g/dl RDW 11.7 (11.0-16.0) % Plt Count 383 (160-400) X10*3/uL MPV 9.8 (9.4-12.4) fL Immature Gran % (Auto) 0.3 (0.0-0.4) % Neut % (Auto) 62.8 (45-73) % Lymph % (Auto) 25.0 (20-40) % [place] % (Auto) 6.3 (2-11) % Eos % (Auto) 4.8 H (0-4) % Baso % (Auto) 0.8 (0-2) % Lymph # (Auto) 2.0 (1.2-4.9) X10*3/uL [place] # (Auto) 0.5 (0.1-1.2) X10*3/uL Eos # (Auto) 0.4 (0.0-0.4) X10*3/uL Baso # (Auto) 0.1 (0.0-0.2) X10*3/uL Abs Immat Gran (auto) 0.02 (0.00-0.03) X10*3/uL Absolute Neuts (auto) 4.9 (2.0-8.3) x10*3/uL Absolute Nucleated RBC 0.000 (0.0-0.012) X10*3/uL Nucleated RBC % (auto) 0.0 (0.0-0.2) /100WBC Sodium 139 (135-145) mmol/L Potassium 4.1 (3.3-5.1) mmol/L Chloride 105 (96-108) mmol/L Carbon Dioxide 23 (22-29) mmol/L Anion Gap 15 (12-20) BUN 7 L (9-16) mg/dL Creatinine 1.01 (0.5-1.4) mg/dL Estim Creat Clear Calc 125.5 Estimated GFR > 60 Random Glucose 89 (60-115) mg/dL Calcium 10.1 D (8.4-10.2) mg/dL Total Bilirubin 0.5 (0.0-1.0) mg/dL AST 17 (5-37) U/L ALT 18 (0-40) U/L Alkaline Phosphatase 60 (39-117) U/L Troponin I High Sens < 3.5 (<3.5-35.0) ng/L Total Protein 8.0 (6.5-8.0) g/dL Albumin 4.9 (3.5-5.0) g/dL Independent Interpretation I performed an independent interpretation of an: EKG Interpretation: Sinus tachycardia with heart rate 113 beats per minute no interval normal axis no acute ST-T changes no acute ischemia Discharge Plan Discharge Clinical Impression: Atypical chest pain, Active substance abuse Patient Disposition: Home, Self-Care Instructions: Methamphetamine Abuse (ED), Chest Wall Pain (ED) Additional Instructions: Stop using meth Follow-up with detox/PCP Prescriptions: No Action famotidine 20 mg tablet 1 tab PO BID propranolol 10 mg Tablet 10 mg PO BID Qty: 60 0RF Protocol: Hold for SBP/HR < HOLD for SBP < : 90 HOLD for HR < : 60 lorazepam 0.5 mg Tablet 0.5 mg PO DAILY Qty: 15 0RF lorazepam 1 mg Tablet 1 mg PO BEDTIME Qty: 15 0RF sertraline 50 mg Tablet 50 mg PO DAILY Qty: 30 0RF Interventions: ED Discharge Assessment Last Done: 12/01/22 00:10 Discharge Date/Time: 12/01/22 00:11
--- OUTSIDE RECORDS SUMMARY | 2022-11-30 23:52 | XMS_ITS | Continuity of Care Document ---
:1995 Author Organization [facility] Address [address] [place] [id number]- Care Team Providers Name Role Phone Kiel Carr MD [id number] Date[facility]s): 04/19/22 - 04/19/[address] [address]- Encounter Diagnosis Chest pain (Final) - 04/19/22 Discharge Disposition: A-D/C Home Attending Physician: José Mojica MD Admitting Physician: José Mojica MD Referring Physician: Not on Staff, Referring MD Allergies, Adverse Reactions, Alerts No Known Allergies Medications BuPROpion By Mouth, 0 Refills, Maintenance, 01/07/22 3:16:00 EST, Partial fill upon patient request if the prescription is for a schedule II opioid drug. Start Date: 01/07/22 Status: OrderedClonazepam By Mouth, 3 times a day, 0 Refills, Maintenance, 04/19/22 4:11:00 EDT, Partial fill upon patient request if the prescription is for a schedule II opioid drug. Start Date: 04/19/22 Status: OrderedLexapro 10 mg oral tablet 1 tablet = 10 mg, By Mouth, Daily, # 30 tablet, 0 Refills, Maintenance, 04/19/22 4:11:00 EDT, Tablet, Partial fill upon patient request if the prescription is for a schedule II opioid drug. Start Date: 04/19/22 Status: OrderedPropranolol Refills 0, Maintenance, 01/07/22 3:16:00 EST, Partial fill upon patient request if the prescription is for a schedule II opioid drug. Start Date: 01/07/22 Status: OrderedSertraline By Mouth, Daily, 0 Refills, Maintenance, 01/07/22 3:16:00 EST, Partial fill upon patient request if the prescription is for a schedule II opioid drug. Start Date: 01/07/22 Status: OrderedTrazodone By Mouth, 2 times a day, 0 Refills, Maintenance, 01/07/22 3:17:00 EST, Partial fill upon patient request if the prescription is for a schedule II opioid drug. Start Date: 01/07/22 Status: Ordered Problem List Condition Effective Dates Status Health Status Informant Headache disorder(Confirmed) Active Obese class I(Confirmed) Active Results Radiology Reports Exam Date Time Procedure Performing Provider Status 04/19/22 6:21 AM Chest 2 Views Frontal and Lat Edwinmelbamieshacristian Glenda; Auth (Verified) Notes:(Chest 2 Views Frontal and Lat) Reason For Exam: AnginaRESULT: Chest 2 Views Frontal and Lat Chest 2 Views Frontal and Lat Hx of Present Illness: pt complains of chest pain and burning after smoking meth. Pt states he started last year once a week and now every day and thinks he got something bad today; Reason: Angina; Clinical Question(s): CHF COMPARISON: 01/18/2022 FINDINGS: LINES AND TUBES: None. LUNGS AND PLEURA: Clear lungs. Normal pulmonary vascularity. No pleural effusion. No pneumothorax. HEART, MEDIASTINUM AND TORO: Heart is normal in size. Normal upper mediastinal and hilar contour. BONES AND SOFT TISSUES: No acute abnormality. IMPRESSION: No acute abnormality. WSN: [id number] Ordering Physician: Anna Umaña Dictated By: Stephania Baires MD Dictated Date/Time: 04/19/22 8:05 am Reviewed By: Stephania Baires MD Signed By: Stephania Baires MD Signed Date/Time: 04/19/22 8:05 am Transcribed By: SHELBY Transcribed Date/Time: 04/19/22 8:04 am Vital Signs Most recent to oldest 1 2 3 [Reference Range]: Height 178 cm 178 cm 178 cm (04/19/22 6:39 AM) (04/19/22 4:10 AM) (04/19/22 4:0 3 AM) Weight 96 kg 96 kg 96 kg (04/19/22 6:39 AM) (04/19/22 4:10 AM) (04/19/22 4:0 3 AM) Oxygen Saturation [94-100 %] 98 % 100 % (04/19/22 6:39 AM) (04/19/22 4:03 AM) Pulse Rate [55-90 bpm] 107 bpm 100 bpm *H* *H* (04/19/22 6:39 AM) (04/19/22 4:03 AM) Body Mass Index [18.5-24.99] 30.3 30.3 *>HHI* *>HHI* (04/19/22 6:39 AM) (04/19/22 4:03 AM) Blood Pressure [90-138/55-84 mm 160/90 mm Hg 133/86 mm Hg Hg] *H* (04/19/22 4:03 AM) (04/19/22 6:39 AM) Respiratory Rate [16-30 br/min] 18 br/min 16 br/min (04/19/22 6:39 AM) (04/19/22 4:03 AM) Temperature [96.8-100.4 DegF] 98.1 DegF (04/19/22 4:03 AM) Mode of Delivery (Oxygen) Room air (04/19/22 4:03 AM) Blood pressure sites Arm, right (04/19/22 4:03 AM) Temperature Route Oral (04/19/22 4:03 AM) Dry Weight 96 kg 96 kg 96 kg (04/19/22 6:39 AM) (04/19/22 4:10 AM) (04/19/22 4:0 3 AM) Weight Obtained Via Standing scale (04/19/22 4:03 AM) Dry Weight Obtained Via Standing scale (04/19/22 4:03 AM)
--- OUTSIDE RECORDS SUMMARY | 2022-11-30 23:53 | XMS_ITS | Continuity of Care Document ---
:1995 Author Organization [facility] Address [address] [place] [phone]- Care Team Providers Name Role Phone Kiel Carr MD Primary Care Phys[id number] Date(s): 05/08/22 - 05/08/[address] [address]- Discharge Disposition: A-D/C Home Attending Physician: Myles Cassidy MD Admitting Physician: Myles Cassidy MD Referring Physician: Not on Staff, Referring [...] Status Health Status Informant Headache disorder(Confirmed) Active Results Radiology Reports Exam Date Time Procedure Performing Provider Status 05/08/22 4:29 AM Chest 2 Views Frontal and Lat Alvin Hinojosa; Vince (Verified) Notes:(Chest 2 Views Frontal and Lat) Reason For Exam: Chest Pain;Other:RESULT: Chest 2 Views Frontal and Lat Chest 2 Views Frontal and Lat Hx of Present Illness: Pt reports chest pressure and palpitations Reason: Shortness of breath, Chest Pain; COMPARISON: April 29, 2022 FINDINGS: LINES AND TUBES: None. LUNGS AND PLEURA: Clear lungs. Normal pulmonary vascularity. No pleural effusion. No pneumothorax. HEART, MEDIASTINUM AND TORO: Heart is normal in size. Normal upper mediastinal and hilar contour. BONES AND SOFT TISSUES: No acute abnormality. IMPRESSION: No acute abnormality. WSN: [id number] Ordering Physician: Myles Cassidy Dictated By: Alvin Sanchez MD Dictated Date/Time: 05/08/22 6:22 am Reviewed By: Alvin Sanchez MD Signed By: Alvin Sanchez MD Signed Date/Time: 05/08/22 6:22 am Transcribed By: SHELBY Transcribed Date/Time: 05/08/22 6:21 am Vital Signs Most recent to oldest 1 2 3 [Reference Range]: Oxygen Saturation [94-100 %] 98 % 97 % 98 % (05/08/22 7:03 AM) (05/08/22 6:10 AM) (05/08/22 4:3 0 AM) Pulse Rate [55-90 bpm] 100 bpm 104 bpm 116 bpm *H* *H* *H* (05/08/22 7:03 AM) (05/08/22 6:10 AM) (05/08/22 4:3 0 AM) Blood Pressure [90-138/55-84 mm 133/90 mm Hg 136/94 mm Hg 147/95 mm Hg Hg] (05/08/22 7:03 AM) (05/08/22 6:10 AM) *H* (05/08/22 4:30 AM ) Respiratory Rate [16-30 br/min] 18 br/min 17 br/min 18 br/min (05/08/22 7:03 AM) (05/08/22 6:10 AM) (05/08/22 4:3 0 AM) Temperature [96.8-100.4 DegF] 98.4 DegF 98.4 DegF 98 .4 DegF (05/08/22 7:03 AM) (05/08/22 6:10 AM) (05/08/22 4:3 0 AM) Mode of Delivery (Oxygen) Room air Room air Room a ir (05/08/22 7:03 AM) (05/08/22 6:10 AM) (05/08/22 4:3 0 AM) Blood pressure sites Arm, left Arm, left Arm, left (05/08/22 7:03 AM) (05/08/22 6:10 AM) (05/08/22 4:3 0 AM) Temperature Route Oral Oral Oral (05/08/22 7:03 AM) (05/08/22 6:10 AM) (05/08/22 4:3 0 AM)
--- OUTSIDE RECORDS SUMMARY | 2022-11-30 23:53 | XMS_ITS | Continuity of Care Document ---
:1995 Author Organization [facility] Address [address] [place] [id number]- Care Team Providers Name Role Phone Kiel Carr MD [id number] Date[facility]s): [facility] - 05/23/[address] [address]- Discharge Disposition: A-D/C Home Attending Physician: Mega RITCHIE, Mary Jane Chao Admitting Physician: Mary Jane Ayoub MD Referring Physician: Not on Staff, Referring [...] Status Health Status Informant Headache disorder(Confirmed) Active Vital Signs Most recent to oldest [Reference Range]: 1 2 Height 178 cm (05/23/22 1:40 AM) Weight 94 kg (05/23/22 1:40 AM) Oxygen Saturation [94-100 %] 100 % 100 % (05/23/22 4:02 AM) (05/23/22 1:40 AM) Pulse Rate [55-90 bpm] 84 bpm 101 bpm (05/23/22 4:02 AM) *H* (05/23/22 1:40 AM) Blood Pressure [90-138/55-84 mm Hg] 133/86 mm Hg (05/23/22 1:40 AM) Diastolic Blood Pressure [55-84 mm Hg] 75 mm Hg (05/23/22 4:02 AM) Respiratory Rate [16-30 br/min] 18 br/min (05/23/22 1:40 AM) Temperature [96.8-100.4 DegF] 98.2 DegF 98.2 DegF (05/23/22 4:02 AM) (05/23/22 1:40 AM) Mode of Delivery (Oxygen) Room air (05/23/22 1:40 AM) Blood pressure sites Arm, right Arm, left (05/23/22 4:02 AM) (05/23/22 1:40 AM) Temperature Route Oral Oral (05/23/22 4:02 AM) (05/23/22 1:40 AM) Weight Obtained Via Standing scale (05/23/22 1:40 AM)
--- OUTSIDE RECORDS SUMMARY | 2022-11-30 23:53 | XMS_ITS | Continuity of Care Document ---
:1995 Author Organization [facility] Address [address] [place] [address]- Care Team Providers Name Role Phone Kiel Carr MD Primary Care Physician [place] [facility] [place] 11[place]22 [facility] [address] [place] [address]- Allergies, Adverse Reactions, Alerts No Known Allergies Medications Carafate 1 gm oral tablet 1 Gm, 1, tablet, By Mouth, 4 times a day, PRN, # 30 tablet, Refills 0, Tot. Refills 0, Maintenance, Dyspepsia, 08/25/22 4:20:00 EDT, Print Requisition, Partial fill upon patient request if the prescription is for a schedule II opioid drug. Start Date: 08/25/22 Status: OrderedcloNIDine 0.1 mg oral tablet 0.1 mg, 1, tablet, By Mouth, 2 times a day, # 60 tablet, Refills 0, Maintenance, 08/24/22 23:52:00 EDT, Partial fill upon patient request if the prescription is for a schedule II opioid drug. Start Date: 08/24/22 Status: OrderedhydrOXYzine hydrochloride 25 mg oral tablet 1 tablet = 25 mg, By Mouth, Daily, # 30 tablet, 0 Refills, Maintenance, 08/24/22 23:53:00 EDT, Tablet, Partial fill upon patient request if the prescription is for a schedule II opioid drug. Start Date: 08/24/22 Status: OrderedhydrOXYzine hydrochloride 50 mg oral tablet 1 tablet = 50 mg, By Mouth, Daily at bedtime, 0 Refills, Maintenance, 08/24/22 23:54:00 EDT, Partialfill upon patient request if the prescription is for a schedule II opioid drug. Start Date: 08/24/22 Status: OrderedPepcid 40 mg oral tablet 1 tablet = 40 mg, By Mouth, Daily at bedtime, 0 Refills, Maintenance, 08/24/22 23:54:00 EDT, Partialfill upon patient request if the prescription is for a schedule II opioid drug. Start Date: 08/24/22 Status: Ordered Problem List Condition Confirmation Course Effective Dates Status Health Stat us Informant Headache disorder Confirmed Active Patient Care team information Care Team PersonnelName: Kiel Carr MD Position: Reference Physician Member Role: PCP Address: Address: [address] [place] [address] [place] [address]- Care Team Related PersonsName: AMOR BARON Address: home [address] [place] [address] Name: CEASAR CENTENO Address: home [address] [place] [id number] Name: ZARIA HELTON
--- OUTSIDE RECORDS SUMMARY | 2022-11-30 23:53 | XMS_ITS | Continuity of Care Document ---
:1995 Author Organization [facility] Address [address] [place] [id number]- Care Team Providers Name Role Phone Kiel Carr MD Primary Care Physician [id number] Date(s): 04/29/22 - 04/29/[address] [address]- Encounter Diagnosis Chest pain (Final) - 04/29/22 Discharge Disposition: A-D/C Home Attending Physician: Khang Casey MD Admitting Physician: Khang Casey MD Referring Physician: Not on Staff, Referring [...] Exam Date Time Procedure Performing Provider Status 04/29/22 10:23 AM Chest 2 Views Frontal and Lat Michael , Winter; Au th (Verified) Notes:(Chest 2 Views Frontal and Lat) Reason For Exam: Shortness of Breath, Fever;Other:RESULT: Chest 2 Views Frontal and Lat Chest 2 Views Frontal and Lat Hx of Present Illness: Chest pain Pt reports he was doing Crystal Meth yesterday and now developed chest pain and reports spasms and left side facial tingling.; Reason: Other:; Shortness of Breath, Fever; Clinical Question(s): Pneumonia COMPARISON: Multiple priors, most recent 04/19/2022. FINDINGS: LINES AND TUBES: None. LUNGS AND PLEURA: Clear lungs. Normal pulmonary vascularity. No pleural effusion. No pneumothorax. HEART, MEDIASTINUM AND TORO: Heart is normal in size. Normal upper mediastinal and hilar contour. BONES AND SOFT TISSUES: No acute abnormality. IMPRESSION: No acute abnormality. WSN: [id number] Ordering Physician: Pradeep Cates Dictated By: Vernon Gonzalez MD Dictated Date/Time: 04/29/22 10:42 a Reviewed By: Vernon Gonzalez MD Signed By: Vernon Gonzalez MD Signed Date/Time: 04/29/22 10:42 am Transcribed By: SHELBY Transcribed Date/Time: 04/29/22 10:41 am Vital Signs Most recent to oldest [Reference Range]: 1 2 Height 178 cm 178 cm (04/29/22 9:27 AM) (04/29/22 9:24 AM) Weight 94.5 kg 94.5 kg (04/29/22 9:27 AM) (04/29/22 9:24 AM) Oxygen Saturation [94-100 %] 100 % 100 % (04/29/22 9:24 AM) (04/29/22 9:21 AM) Pulse Rate [55-90 bpm] 90 bpm 106 bpm (04/29/22 9:24 AM) *H* (04/29/22 9:21 AM) Body Mass Index [18.5-24.99] 29.83 *H* (04/29/22 9:24 AM) Blood Pressure [90-138/55-84 mm Hg] 139/83 mm Hg *H* (04/29/22 9:24 AM) Respiratory Rate [16-30 br/min] 18 br/min (04/29/22:24 AM) Temperature [96.8-100.4 DegF] 97.9 DegF (04/29/22 9:24 AM) Mode of Delivery (Oxygen) Room air Room air (04/29/22 9:24 AM) (04/29/22 9:21 AM) Blood pressure sites Arm, right (04/29/22 9:24 AM) Temperature Route Oral (04/29/22 9:24 AM) Dry Weight 94.5 kg 94.5 kg (04/29/22 9:27 AM) (04/29/22 9:24 AM) Weight Obtained Via Standing scale (04/29/22 9:24 AM) Dry Weight Obtained Via Standing scale (04/29/22 9:24 AM)
--- OUTSIDE RECORDS SUMMARY | 2022-11-30 23:53 | XMS_ITS | Continuity of Care Document ---
:1995 Author Organization [facility] Address [address] [place] [address]- Care Team Providers Name Role Phone Not on Staff, PCP Primary Care Physician Unavailable Encounter [facility] Date(s): 08/24/22 - 08/25/[address] [address]- Discharge Disposition: A-D/C Home Attending Physician: Penny RITCHIE, Ni Pina Admitting Physician: Ni Francis MD Referring Physician: Not on Staff, Referring [...] II opioid drug. Start Date: 08/24/22 Status: OrderedToradol Inj 15 mg, Injection, IV Push Slowly, Once, STAT, 08/25/22 0:43:00 EDT, Stop date 08/25/22 0:43:00 EDT Start Date: 08/25/22 Stop Date: 08/25/22 Status: Completed Problem List Condition Confirmation Course Effective Dates Status Health Stat us Informant Headache disorder Confirmed Active Vital Signs Most recent to oldest 1 2 3 [Reference Range]: Height 178 cm 178 cm 178 cm (08/25/22 3:27 AM) (08/24/22 11:49 PM) (08/24/22 11 :46 PM) Weight 94.8 kg 94.8 kg 94.8 kg (08/25/22 3:27 AM) (08/24/22 11:49 PM) (08/24/22 11 :46 PM) Oxygen Saturation [94-100 %] 97 % 100 % (08/25/22 3:27 AM) (08/24/22 11:46 PM) Pulse Rate [55-90 bpm] 84 bpm 92 bpm (08/25/22 3:27 AM) *H* (08/24/22 11:46 PM) Body Mass Index [18.5-24.99 29.92 kg/m2 29.92 kg/m2 kg/m2] *H* *H* (08/25/22 3:27 AM) (08/24/22 11:46 PM) Blood Pressure [90-138/55-84 127/79 mm Hg 139/96 mm Hg mm Hg] (08/25/22 3:27 AM) *H* (08/24/22 11:46 PM) Respiratory Rate [16-30 18 br/min 18 br/min 18 br/mi n br/min] (08/25/22 3:27 AM) (08/25/22 1:39 AM) (08/24/22 11: 46 PM) Temperature [96.8-100.4 98.1 DegF DegF] (08/24/22 11:46 PM) Mode of Delivery (Oxygen) Room air Room air (08/25/22 3:27 AM) (08/24/22 11:46 PM) Temperature Route Oral (08/24/22 11:46 PM) Dry Weight 94.8 kg 94.8 kg 94.8 kg (08/25/22 3:27 AM) (08/24/22 11:49 PM) (08/24/22 11 :46 PM) Dry Weight Obtained Via Standing scale (08/24/22 11:46 PM) Patient Care team information PersonnelName: Not on Staff, PCP
--- OUTSIDE RECORDS SUMMARY | 2022-11-30 23:53 | XMS_ITS | Continuity of Care Document ---
:1995 Author Organization [facility] Address [address] [place] [address]- Care Team Providers Name Role Phone Not on Staff, PCP Primary Care Physician Unavailable Encounter [facility] Date(s): 08/18/22 - 09/23/[address] [address] Attending Physician: Adelita CASEY, Breann Morse Admitting Physician: Adelita CASEY, Breann Morse Referring Physician: Adelita CASEY, Breann Morse Allergies, Adverse Reactions, Alerts No Known Allergies [...] disorder Confirmed Active Patient Care team information PersonnelName: Not on Staff, PCP
--- OUTSIDE RECORDS SUMMARY | 2022-11-30 23:53 | XMS_ITS | Continuity of Care Document ---
:1995 Author Organization [facility] Address [address] [place] [address]- Care Team Providers Name Role Phone Kiel Carr MD Primary Care Physician Encounter [facility] Date(s): 01/18/22 - 01/18/[address] [address]- Discharge Disposition: A-D/C Home Attending Physician: Gerardo Chase MD Admitting Physician: Gerardo Chase MD Referring Physician: Not on Staff, Referring MD Allergies, Adverse Reactions, Alerts No Known Allergies Medications BuPROpion By Mouth, 0 Refills, Maintenance, 01/07/22 3:16:00 EST, Partial fill upon patient request if the prescription is for a schedule II opioid drug. Start Date: 01/07/22 Status: OrderedPropranolol Refills 0, Maintenance, 01/07/22 3:16:00 [...] Exam Date Time Procedure Performing Provider Status 01/18/22 6:04 PM Chest 2 Views Frontal and Lat Stacy Maher na; Auth (Verified) Notes:(Chest 2 Views Frontal and Lat) Reason For Exam: Chest Pain;Other:RESULT: Chest 2 Views Frontal and Lat Chest 2 Views Frontal and Lat Hx of Present Illness: Pt used cocaine and crack last night. Today reporting chest pain described aschest pressure and intermittent sharp pains; Reason: Other:; Chest Pain; Clinical Question(s): Other: COMPARISON: Priors, most recent dated 01/07/2022 FINDINGS: LINES AND TUBES: None. LUNGS AND PLEURA: No focal consolidation. Normal pulmonary vascularity. No pleural effusion. No pneumothorax. HEART, MEDIASTINUM AND TORO: Heart is normal in size. Subtle lobulated opacity along the superior aspect of the left hilum could be related to prominent pulmonary vasculature. BONES AND SOFT TISSUES: No acute abnormality. IMPRESSION: No radiographic evidence of acute cardiopulmonary disease. Slight lobulated appearance of the left hilum could be related to prominent central pulmonary vasculature however underlying lymphadenopathy is not excluded. May consider follow-up evaluation with CT chest, as clinically warranted. A [place] message has been communicated via the [employer] system on 01/18/2022 6:11 PM, Message ID [id number]. WSN: [id number] Ordering Physician: Khang Rivero Dictated By: Beti Ramirez MD Dictated Date/Time: 01/18/22 6:11 pm Reviewed By: Beti Ramirez MD Signed By: Beti Ramirez MD Signed Date/Time: 01/18/22 6:11 pm Transcribed By: SHELBY Transcribed Date/Time: 01/18/22 6:07 pm Vital Signs Most recent to oldest [Reference Range]: 1 2 Height 179 cm (01/18/22 4:27 PM) Weight 95 kg (01/18/22 4:27 PM) Oxygen Saturation [94-100 %] 99 % 97 % (01/18/22 7:45 PM) (01/18/22 4:24 PM) Pulse Rate [55-90 bpm] 89 bpm 99 bpm (01/18/22 7:45 PM) *H* (01/18/22 4:24 PM) Blood Pressure [90-138/55-84 mm Hg] 125/91 mm Hg 149/ 93 mm Hg (01/18/22 7:45 PM) *H* (01/18/22 4:24 PM) Respiratory Rate [16-30 br/min] 18 br/min 16 br/mi n (01/18/22 7:45 PM) (01/18/22 4:24 PM) Temperature [96.8-100.4 DegF] 99.1 DegF (01/18/22 4:24 PM) Mode of Delivery (Oxygen) Room air Room air (01/18/22 7:45 PM) (01/18/22 4:24 PM) Blood pressure sites Arm, right (01/18/22 4:24 PM) Temperature Route Temporal (01/18/22 4:24 PM) Dry Weight 95 kg (01/18/22 4:27 PM)
--- OUTSIDE RECORDS SUMMARY | 2022-11-30 23:53 | XMS_ITS | Continuity of Care Document ---
:1995 Author Organization [facility] Address [address] [place] [address]- Care Team Providers Name Role Phone Kiel Carr MD Primary [id number] Date(s): 01/13/22 - 01/13/[address] [address]- Discharge Disposition: A-D/C Home Attending Physician: Guerrero Brizuela MD Admitting Physician: Guerrero Brizuela MD Referring Physician: Not on Staff, Referring [...] [Reference Range]: Height 178 cm 178 cm (01/13/22 9:21 PM) (01/13/22 1:35 PM) Weight 94.8 kg 94.8 kg (01/13/22 9:21 PM) (01/13/22 1:35 PM) Oxygen Saturation [94-100 %] 98 % 97 % 98 % (01/13/22 9:57 PM) (01/13/22 7:37 PM) (01/13/22 5:1 8 PM) Pulse Rate [55-90 bpm] 78 bpm 93 bpm 93 bpm (01/13/22 9:57 PM) *H* *H* (01/13/22 7:37 PM) (01/13/22 5:18 PM) Body Mass Index [18.5-24.99] 29.92 *H* (01/13/22 1:35 PM) Blood Pressure [90-138/55-84 mm 120/82 mm Hg 120/80 mm Hg 123/94 mm Hg Hg] (01/13/22 9:57 PM) (01/13/22 7:37 PM) (01/13/22 5:1 8 PM) Respiratory Rate [16-30 br/min] 18 br/min 17 br/min 16 br/min (01/13/22 9:57 PM) (01/13/22 7:37 PM) (01/13/22 3:2 5 PM) Temperature [96.8-100.4 DegF] 98.7 DegF 98.6 DegF 98 .6 DegF (01/13/22 9:57 PM) (01/13/22 7:37 PM) (01/13/22 5:1 8 PM) Mode of Delivery (Oxygen) Room air Room air Room a ir (01/13/22 9:57 PM) (01/13/22 7:37 PM) (01/13/22 5:1 8 PM) Blood pressure sites Arm, right Arm, left Arm, left (01/13/22 9:57 PM) (01/13/22 7:37 PM) (01/13/22 5:1 8 PM) Temperature Route Oral Oral Oral (01/13/22 9:57 PM) (01/13/22 7:37 PM) (01/13/22 5:1 8 PM) Dry Weight 94.8 kg 94.8 kg (01/13/22 9:21 PM) (01/13/22 1:35 PM) Weight Obtained Via Standing scale (01/13/22 1:35 PM) Dry Weight Obtained Via Standing scale (01/13/22 1:35 PM)
== END 2022-12-01 00:11 | disposition home or self-care (01) ==
PROVIDERS: Emergency Provider Internal Medicine; PCP Pediatrics
DX: R07.89 Other chest pain (principal); R00.0 Tachycardia, unspecified; F13.20 Sedative, hypnotic or anxiolytic dependence, uncomplicated; F19.10 Other psychoactive substance abuse, uncomplicated; F41.1 Generalized anxiety disorder; F33.9 Major depressive disorder, recurrent, unspecified; Z79.899 Other long term (current) drug therapy
CPT/HCPCS: 36415; 71045; 80053; 84484; 85025; 93005; 99283; 99284

== ENCOUNTER 2023-03-01 01:12 | Emergency (ER) | payer OTHER, SELFPAY ==
--- NOTE | ~2023-03-01 | XR_ITS ---
EXAMINATION: XR CHEST CLINICAL INFORMATION: Chest pain COMPARISON: 11/30/2022 TECHNIQUE: Frontal view of the chest was obtained. FINDINGS: No significant abnormality is noted involving the heart, lungs, mediastinum, bony thorax or soft tissues. XR/XR chest 1V IMPRESSION: Unremarkable examination.
--- NOTE | 2023-03-01 01:15 | ECG_ITS ---
Test Reason : chest pain Blood Pressure : / mmHG Vent. Rate : 110 BPM Atrial Rate : 110 BPM P-R Int : 158 ms QRS Dur : 080 ms QT Int : 314 ms P-R-T Axes : 066 043 046 degrees QTc Int : 424 ms Sinus tachycardia Otherwise normal ECG When compared with ECG of 30-NOV-2022 21:34, No significant change was found Referred By: Generic ED Physician Electronically Signed By:ABDELRAHMAN FAY MD
[2023-03-01 01:22] VITALS: BP 129/90; PULSE 111; RESP 16; TEMP 36.9; O2SAT 100; BMI 26.4
--- NOTE | 2023-03-01 01:51 | ED_ITS ---
HPI - Chest Pain General Chief Complaint: Chest Pain Stated Complaint: Nausea/Chest discomfort Time Seen by Provider: 03/01/23 01:42 Source: patient Mode of arrival: ambulatory Limitations: no limitations History of Present Illness HPI narrative: Patient comes to the emergency room complaining of right-sided chest pain. Patient states that it started approximately 1 hour ago. It was intermittent, lasting for a few seconds. At this time patient is asymptomatic. Patient admits to using crystal meth daily. Relapsed in October. Patient states that he feels like he has to burp. Related Data Home Medications Medication Instructions Recorded Confirmed famotidine 20 mg tablet 1 tab PO BID 09/20/21 Previous Rx's Medication Instructions Recorded lorazepam 0.5 mg tablet 0.5 mg PO DAILY #15 tabs 09/25/21 lorazepam 1 mg tablet 1 mg PO BEDTIME #15 tabs 09/25/21 propranolol 10 mg tablet 10 mg PO BID #60 tabs 09/25/21 sertraline 50 mg tablet 50 mg PO DAILY #30 tabs 09/25/21 Allergies Allergy/AdvReac Type Severity Reaction Status Date / Time No Known Allergies Allergy Verified 03/01/23 01:26 Review of Systems Review of Systems: Constitutional : No Weight loss, No Fever, No Chills, No Night Sweats, No Fatigue, No Malaise ENT/Mouth : No Hearing loss, No Ear Pain, No Nasal Congestion, No Sinus Pain, No Hoarseness, No sore throat, No Rhinorrhea, No Swallowing Difficulty Eyes: No Eye Pain, No Swelling, No Redness, No Foreign Body, No Discharge, No Vision Changes Cardiovascular : Intermittent chest pain, No SOB, No Dyspnea on Exertion, No Orthopnea, No Edema, No Palpitations Respiratory : No Cough, No Sputum, No Wheezing, No Smoke Exposure, No Dyspnea Gastrointestinal : Feeling bloated, No Nausea, No Vomiting, No Diarrhea, No Constipation, No abdominal Pain, No Hematochezia, No Melena Genitourinary : no irregular bleeding, No Dysuria, No Urinary Frequency, No Hem aturia, No Urinary Incontinence, No Urgency, No Flank Pain, No Urinary Flow Changes, No Hesitancy Musculoskeletal : No joint pain, No Myalgias, No Joint Swelling Skin : No Skin Lesions, No rash Neuro : No Weakness, No Numbness, No Paresthesias, No Loss of Consciousness, No Dizziness, No Headache Psych : No Anxiety/Panic, No Depression, No SI/HI/AH/VH, admits to crystal meth use Heme/Lymph: No Bruising, No Bleeding,No Lymphadenopathy Endocrine : No Polyuria, No Polydipsia, No Temperature Intolerance [facility] Past Medical History Medical History Active substance abuse Generalized anxiety disorder Major depression, recurrent, chronic Social History Social History Household Members: Family Household Members Other:: Mother and Step-Father Housing: House Do you presently have visiting nurse or other home services: No Alcohol intake: current Alcohol intake frequency: holidays/special occasions only Alcohol type: beer Patient Tobacco Use Status: Never used Tobacco Substance Use Type: Crack/Cocaine and Methamphetamine Advance Directives: No Advance Directives Information Provided: Yes service: No Sexual orientation: Straight/Heterosexual Physical Exam Vital Signs: Vital Signs: Last Vital Signs Temp 98.5 F 03/01/23 01:22 Pulse 111 H 03/01/23 01:22 Resp 16 03/01/23 01:22 BP 129/90 H 03/01/23 01:22 Pulse Ox 100 03/01/23 01:22 O2 Del Method Room Air 03/01/23 01:22 BMI result Body Mass Index 26.4 Const: Other: Appearance: Alert. Oriented X3. No acute distress. Eyes: Pupils equal, round and reactive to light. ENT: Pharynx normal. Neck: Normal inspection. Neck supple. No lymph nodes noted. No crepitus CVS: Normal heart rate and rhythm. Pulses normal. Normal S1 and S2 Respiratory: No respiratory distress. Breath sounds normal. No Wheezing. No rales Abdomen: Soft and nontender. No rigidity. No distention. Skin: Skin warm and dry. Normal skin color. Normal skin turgor. Extremities: No lower extremity edema. No Lacerations. No Rash Neuro: Oriented X 3. No motor deficit. No sensory deficit. Moving all extremities. No slurred speech. CN 2 through 12 grossly intact Psych: calm, cooperative, normal affect Course Course Course Narrative: -labs pending Medical Decision Making Medical Decision Making MDM Narrative: -EKG my interpretation: Rate 110, sinus rhythm, no ST segment depression or elevation, no T-wave inversion, QTC 424 -patient feeling better. EKG reassuring, troponin negative, likely atypical chest pain PE Differential Diagnosis Differential Diagnoses: The differential diagnosis associated with the presentation includes (Substance abuse, ACS, atypical chest pain, pleurisy, costochondritis) Lab Data 03/01/23 02:31 03/01/23 02:31 Labs: Lab Results 03/01/23 03/01/23 03/01/23 Range/Units 02:31 02:31 02:31 WBC 9.5 (4.8-10.8) X10*3/uL RBC 5.05 (4.60-5.80) X10*6/uL Hgb 15.2 (14.0-18.0) g/dl Hct 43.4 (42.0-52.0) % MCV 85.9 (80.0-98.0) fL MCH 30.1 (27.0-33.0) pg MCHC 35.0 (31.0-36.0) g/dl RDW 11.9 (11.0-16.0) % Plt Count 352 (160-400) X10*3/uL MPV 9.3 L (9.4-12.4) fL Immature Gran % (Auto) 0.2 (0.0-0.4) % Neut % (Auto) 68.1 (45-73) % Lymph % (Auto) 21.4 (20-40) % Childress % (Auto) 5.6 (2-11) % Eos % (Auto) 4.2 H (0-4) % Baso % (Auto) 0.5 (0-2) % Lymph # (Auto) 2.0 (1.2-4.9) X10*3/uL Childress # (Auto) 0.5 (0.1-1.2) X10*3/uL Eos # (Auto) 0.4 (0.0-0.4) X10*3/uL Baso # (Auto) 0.1 (0.0-0.2) X10*3/uL Abs Immat Gran (auto) 0.02 (0.00-0.03) X10*3/uL Absolute Neuts (auto) 6.4 (2.0-8.3) x10*3/uL Absolute Nucleated RBC 0.000 (0.0-0.012) X10*3/uL Nucleated RBC % (auto) 0.0 (0.0-0.2) /100WBC D-Dimer High Sensitivty NG/ML Sodium 141 (135-145) mmol/L Potassium 4.5 (3.3-5.1) mmol/L Chloride 107 (96-108) mmol/L Carbon Dioxide 27 (22-29) mmol/L Anion Gap 12 (12-20) BUN 8 L (9-16) mg/dL Creatinine 0.81 (0.5-1.4) mg/dL Estim Creat Clear Calc 142.6 Estimated GFR > 60 Random Glucose 96 (60-115) mg/dL Calcium 9.2 D (8.4-10.2) mg/dL Troponin I High Sens < 2.7 (<3.5-35.0) ng/L 03/01/23 Range/Units 02:31 WBC (4.8-10.8) X10*3/uL RBC (4.60-5.80) X10*6/uL Hgb (14.0-18.0) g/dl Hct (42.0-52.0) % MCV (80.0-98.0) fL MCH (27.0-33.0) pg MCHC (31.0-36.0) g/dl RDW (11.0-16.0) % Plt Count (160-400) X10*3/uL MPV (9.4-12.4) fL Immature Gran % (Auto) (0.0-0.4) % Neut % (Auto) (45-73) % Lymph % (Auto) (20-40) % Childress % (Auto) (2-11) % Eos % (Auto) (0-4) % Baso % (Auto) (0-2) % Lymph # (Auto) (1.2-4.9) X10*3/uL Childress # (Auto) (0.1-1.2) X10*3/uL Eos # (Auto) (0.0-0.4) X10*3/uL Baso # (Auto) (0.0-0.2) X10*3/uL Abs Immat Gran (auto) (0.00-0.03) X10*3/uL Absolute Neuts (auto) (2.0-8.3) x10*3/uL Absolute Nucleated RBC (0.0-0.012) X10*3/uL Nucleated RBC % (auto) (0.0-0.2) /100WBC D-Dimer High Sensitivty 207 NG/ML Sodium (135-145) mmol/L Potassium (3.3-5.1) mmol/L Chloride (96-108) mmol/L Carbon Dioxide (22-29) mmol/L Anion Gap (12-20) BUN (9-16) mg/dL Creatinine (0.5-1.4) mg/dL Estim Creat Clear Calc Estimated GFR Random Glucose (60-115) mg/dL Calcium (8.4-10.2) mg/dL Troponin I High Sens (<3.5-35.0) ng/L Discharge Plan Discharge Clinical Impression: Atypical chest pain Patient Disposition: Home, Self-Care Instructions: Chest Pain (ED) Additional Instructions: Please follow-up with your primary care physician tomorrow. If you have any worsening or new symptoms, please return to the emergency room or call 911 Prescriptions: No Action famotidine 20 mg tablet 1 tab PO BID propranolol 10 mg Tablet 10 mg PO BID Qty: 60 0RF Protocol: Hold for SBP/HR < HOLD for SBP < : 90 HOLD for HR < : 60 lorazepam 0.5 mg Tablet 0.5 mg PO DAILY Qty: 15 0RF lorazepam 1 mg Tablet 1 mg PO BEDTIME Qty: 15 0RF sertraline 50 mg Tablet 50 mg PO DAILY Qty: 30 0RF
[2023-03-01 02:00] VITALS: BP 120/80; PULSE 99; RESP 19; TEMP 36.4; O2SAT 100
--- NOTE | 2023-03-01 02:02 | PC.NURSE ---
pt c/o of chest pain that started about 15 min after using meth aox4
[2023-03-01 02:36] LABS: Basophils Absolute Auto 0.1 X10*3/uL (0.0-0.2); Basophils Percent Auto 0.5 % (0-2); Eosinophils Absolute Auto 0.4 X10*3/uL (0.0-0.4); Eosinophils Percent Auto 4.2 % (0-4); Hematocrit 43.4 % (42.0-52.0); Hemoglobin 15.2 g/dl (14.0-18.0); Imm Gran Abs Auto 0.02 X10*3/uL (0.00-0.03); Imm Gran Pct Auto 0.2 % (0.0-0.4); Lymphocytes Percent Auto 21.4 % (20-40); MANUAL DIFF FLAG NO; Mean Corpuscular Hemoglobin 30.1 pg (27.0-33.0); Mean Corpuscular Volume 85.9 fL (80.0-98.0); Mean Platelet Volume 9.3 fL (9.4-12.4); Monocytes Absolute Auto 0.5 X10*3/uL (0.1-1.2); Monocytes Percent Auto 5.6 % (2-11); Neutrophils Absolute Auto 6.4 x10*3/uL (2.0-8.3); Neutrophils Percent Auto 68.1 % (45-73); Platelet Count 352 X10*3/uL (160-400); Red Blood Count 5.05 X10*6/uL (4.60-5.80); Red Cell Distribution Width 11.9 % (11.0-16.0); White Blood Count 9.5 X10*3/uL (4.8-10.8)
--- NOTE | 2023-03-01 02:45 | PC.NURSE ---
pt states chest pain has resolved and feels as if he might just be gassy
[2023-03-01 02:47] LABS: D Dimer High Sensitivity 207 NG/ML
[2023-03-01 02:51] LABS: Anion Gap 12 (12-20); Blood Urea Nitrogen 8 mg/dL (9-16); Calcium 9.2 mg/dL (8.4-10.2); Carbon Dioxide 27 mmol/L (22-29); Chloride 107 mmol/L (96-108); Creatinine Clr Calc Pharmacy 142.6; Estimated Glomerular Filt Rate > 60; Glucose Random 96 mg/dL (60-115); Potassium 4.5 mmol/L (3.3-5.1); Sodium 141 mmol/L (135-145)
[2023-03-01 02:56] LABS: Troponin-I High Sensitivity < 2.7 ng/L (<3.5-35.0)
--- NOTE | 2023-03-01 03:37 | PC.NURSE ---
Discharge instructions given and explained to patient Patient is able to ambulate safely/independently No apparent distress, no sob and able to speak in full sentences aox4
== END 2023-03-01 03:37 | disposition home or self-care (01) ==
PROVIDERS: Emergency Provider Emergency Medicine; PCP Pediatrics
DX: R07.89 Other chest pain (principal); F14.10 Cocaine abuse, uncomplicated; Z79.899 Other long term (current) drug therapy
CPT/HCPCS: 36415; 71045; 80048; 84484; 85025; 85379; 93005; 99283; 99285

== ENCOUNTER 2023-05-23 00:04 | Emergency (ER) | payer OTHER, SELFPAY ==
[2023-05-23 00:06] VITALS: BP 148/101; PULSE 110; RESP 18; TEMP 37; O2SAT 99; BMI 27.3
--- NOTE | 2023-05-23 00:10 | PC.NURSE ---
Attempted EKG. Machine malfunction. patient taken to room.
[2023-05-23 00:39] LABS: MANUAL DIFF FLAG NO
[2023-05-23 00:40] LABS: Basophils Absolute Auto 0.1 X10*3/uL (0.0-0.2); Basophils Percent Auto 0.5 % (0-2); Eosinophils Absolute Auto 0.4 X10*3/uL (0.0-0.4); Eosinophils Percent Auto 3.6 % (0-4); Hematocrit 40.1 % (42.0-52.0); Hemoglobin 13.9 g/dl (14.0-18.0); Imm Gran Abs Auto 0.03 X10*3/uL (0.00-0.03); Imm Gran Pct Auto 0.3 % (0.0-0.4); Lymphocytes Absolute Auto 2.9 X10*3/uL (1.2-4.9); Lymphocytes Percent Auto 24.8 % (20-40); Mean Corpuscular HGB Conc 34.7 g/dl (31.0-36.0); Mean Corpuscular Hemoglobin 30.4 pg (27.0-33.0); Mean Corpuscular Volume 87.7 fL (80.0-98.0); Mean Platelet Volume 9.5 fL (9.4-12.4); Monocytes Absolute Auto 0.7 X10*3/uL (0.1-1.2); Monocytes Percent Auto 5.7 % (2-11); Neutrophils Absolute Auto 7.5 x10*3/uL (2.0-8.3); Neutrophils Percent Auto 65.1 % (45-73); Platelet Count 301 X10*3/uL (160-400); Red Blood Count 4.57 X10*6/uL (4.60-5.80); Red Cell Distribution Width 11.6 % (11.0-16.0); White Blood Count 11.5 X10*3/uL (4.8-10.8)
--- NOTE | 2023-05-23 00:51 | ED.CHESTPAIN ---
HPI - Chest Pain General Chief Complaint: Chest Pain Stated Complaint: Chest pain Time Seen by Provider: 05/23/23 00:28 Source: patient Mode of arrival: ambulatory Limitations: no limitations History of Present Illness HPI narrative: 27-year-old male came in for evaluation of right-sided chest pain and right arm pain. Pain started while patient was cleaning the pool with reaching out with his right arm to grab the hose will start to feel pain and right on radiated to the right side of the chest, no SOB, pain is constant since it started about 3 hours ago, patient is a former drug abuser has been clean for the last 4 weeks. No coughing, no SOB, no recent travel, no IV drug injection. Related Data Home Medications Medication Instructions Recorded Confirmed famotidine 20 mg tablet 1 tab PO BID 09/20/21 Previous Rx's Medication Instructions Recorded lorazepam 0.5 mg tablet 0.5 mg PO DAILY #15 tabs 09/25/21 lorazepam 1 mg tablet 1 mg PO BEDTIME #15 tabs 09/25/21 propranolol 10 mg tablet 10 mg PO BID #60 tabs 09/25/21 sertraline 50 mg tablet 50 mg PO DAILY #30 tabs 09/25/21 Allergies Allergy/AdvReac Type Severity Reaction Status Date / Time No Known Allergies Allergy Verified 03/01/23 01:26 Review of Systems Review of Systems: All other systems are reviewed and are negative Constitutional: Reports as per HPI and Reports no additional constitutional complaints Eyes: Reports as per HPI and Reports no additional eye complaints Reports system reviewed and no additional complaints, except as documented Cardiovascular: Reports as per HPI and Reports no additional cardiovascular complaints Respiratory: Reports as per HPI and Reports no additional respiratory complaints Gastrointestinal: Reports as per HPI and Reports no additional gastrointestinal complaints Genitourinary: Reports no additional female genitourinary complaints Musculoskeletal: Reports no additional musculoskeletal complaints Skin/Breast: Reports system reviewed and no additional complaints, except as docu Psychiatric: Reports no additional psychiatric complaints Endocrine: Reports no additional endocrine complaints Hematologic/Lymphatic: Reports no additional hematologic/lymphatic complaints Allergic/Immunologic: Reports no additional allergic/immunologic complaints Reports system reviewed and no additional complaints, except as documented and Reports Abnormal speech present PMFSH Past Medical History Medical History Active substance abuse Generalized anxiety disorder Major depression, recurrent, chronic Social History Social History Household Members: Family Household Members Other:: Mother and Step-Father Housing: House Do you presently have visiting nurse or other home services: No Alcohol intake: current Alcohol intake frequency: holidays/special occasions only Alcohol type: beer Patient Tobacco Use Status: Never used Tobacco Substance Use Type: Crack/Cocaine, Marijuana and Methamphetamine Advance Directives: No Advance Directives Information Provided: No service: No Sexual orientation: Straight/Heterosexual Physical Exam Vital Signs: Vital Signs: Last Vital Signs Temp 98.4 F 05/23/23 01:26 Pulse 94 05/23/23 01:26 Resp 13 05/23/23 01:26 BP 116/74 05/23/23 01:26 Pulse Ox 97 05/23/23 01:26 O2 Del Method Room Air 05/23/23 01:26 BMI result Body Mass Index 27.3 Vital signs have been reviewed as appeared to be correct. Blood pressure normal. Heart rate elevated. Respiration rate normal. Temperature normal. Oxygen saturation normal. Appearance: Alert. Oriented X3. No acute distress. Head: Normal external exam. Normocephalic. Atraumatic. No Buchanan signs noted. No raccoon eyes noted Eyes: PERRLA. EOMI. Conjunctiva and sclera normal. Eyelids normal. ENT: TM's Normal. Pharynx normal. Uvula midline. Moist mucous membranes. No trismus noted. No drooling noted. No muffled voice noted. Neck: Normal inspection. Neck supple. FROM. No adenopathy. Thyroid Normal. No meningeal signs. No neck mass noted. CVS: Normal heart rate and rhythm. Heart sound normal. No murmurs noted. Pulses normal throughout. Respiratory: No respiratory distress. Painless inspiration. Breath sounds normal. No wheezes/rales/rhonchi noted. Chest nontender. No accessory muscle usage noted or decreased air movement noted. Abdomen: Soft and nontender. Bowel sounds normal in all 4 quadrants. No distention noted. No organomegaly noted. No visible injury noted. Back: No CVA tenderness. Full range of motion noted. Skin: Skin warm and dry. Normal skin color. Normal skin turgor. No rashes/lesions/lacerations noted. Extremities: No lower extremity edema. Extremities exhibit normal range of motion. Extremities nontender. Neuro: Oriented X 3. Cranial nerve exam: II-XII are grossly intact No motor deficit. No sensory deficit. Reflexes normal. Course Course Course Narrative: Noncardiac chest pain while was cleaning the pool, HEART SCORE 0 low risk for none cardiac chest pain, low risk for DVT/PE with normal D-dimer. Medical Decision Making Differential Diagnosis Differential Diagnoses: The differential diagnosis associated with the presentation includes (ACS, pulmonary embolism, pneumonia, pneumothorax, rib fracture, costochondritis, muscular pain, electrolytes abnormalities, anemia.) Admission/Observation Consideration of admission/observation: Escalation of care including admission/observation considered Lab Data MDM Lab Attestation statement: I reviewed the patient's lab results. 05/23/23 00:34 05/23/23 00:34 Labs: Lab Results 05/23/23 05/23/23 05/23/23 Range/Units 00:34 00:34 00:34 WBC 11.5 H (4.8-10.8) X10*3/uL RBC 4.57 L (4.60-5.80) X10*6/uL Hgb 13.9 L (14.0-18.0) g/dl Hct 40.1 L (42.0-52.0) % MCV 87.7 (80.0-98.0) fL MCH 30.4 (27.0-33.0) pg MCHC 34.7 (31.0-36.0) g/dl RDW 11.6 (11.0-16.0) % Plt Count 301 (160-400) X10*3/uL MPV 9.5 (9.4-12.4) fL Immature Gran % (Auto) 0.3 (0.0-0.4) % Neut % (Auto) 65.1 (45-73) % Lymph % (Auto) 24.8 (20-40) % [place] % (Auto) 5.7 (2-11) % Eos % (Auto) 3.6 (0-4) % Baso % (Auto) 0.5 (0-2) % Lymph # (Auto) 2.9 (1.2-4.9) X10*3/uL [place] # (Auto) 0.7 (0.1-1.2) X10*3/uL Eos # (Auto) 0.4 (0.0-0.4) X10*3/uL Baso # (Auto) 0.1 (0.0-0.2) X10*3/uL Abs Immat Gran (auto) 0.03 (0.00-0.03) X10*3/uL Absolute Neuts (auto) 7.5 (2.0-8.3) x10*3/uL Absolute Nucleated RBC 0.000 (0.0-0.012) X10*3/uL Nucleated RBC % (auto) 0.0 (0.0-0.2) /100WBC D-Dimer High Sensitivty NG/ML Sodium 141 (135-145) mmol/L Potassium 4.0 (3.3-5.1) mmol/L Chloride 107 (96-108) mmol/L Carbon Dioxide 23 (22-29) mmol/L Anion Gap 15 (12-20) BUN 13 (9-16) mg/dL Creatinine 0.87 (0.5-1.4) mg/dL Estim Creat Clear Calc 132.8 Estimated GFR > 60 Random Glucose 82 (60-115) mg/dL Calcium 9.6 (8.4-10.2) mg/dL Troponin I High Sens < 2.7 (<3.5-35.0) ng/L 05/23/23 Range/Units 00:53 WBC (4.8-10.8) X10*3/uL RBC (4.60-5.80) X10*6/uL Hgb (14.0-18.0) g/dl Hct (42.0-52.0) % MCV (80.0-98.0) fL MCH (27.0-33.0) pg MCHC (31.0-36.0) g/dl RDW (11.0-16.0) % Plt Count (160-400) X10*3/uL MPV (9.4-12.4) fL Immature Gran % (Auto) (0.0-0.4) % Neut % (Auto) (45-73) % Lymph % (Auto) (20-40) % [place] % (Auto) (2-11) % Eos % (Auto) (0-4) % Baso % (Auto) (0-2) % Lymph # (Auto) (1.2-4.9) X10*3/uL [place] # (Auto) (0.1-1.2) X10*3/uL Eos # (Auto) (0.0-0.4) X10*3/uL Baso # (Auto) (0.0-0.2) X10*3/uL Abs Immat Gran (auto) (0.00-0.03) X10*3/uL Absolute Neuts (auto) (2.0-8.3) x10*3/uL Absolute Nucleated RBC (0.0-0.012) X10*3/uL Nucleated RBC % (auto) (0.0-0.2) /100WBC D-Dimer High Sensitivty < 150 NG/ML Sodium (135-145) mmol/L Potassium (3.3-5.1) mmol/L Chloride (96-108) mmol/L Carbon Dioxide (22-29) mmol/L Anion Gap (12-20) BUN (9-16) mg/dL Creatinine (0.5-1.4) mg/dL Estim Creat Clear Calc Estimated GFR Random Glucose (60-115) mg/dL Calcium (8.4-10.2) mg/dL Troponin I High Sens (<3.5-35.0) ng/L Independent Interpretation I performed an independent interpretation of an: EKG (Normal sinus rhythm at 90 beats per minute, normal axis deviation, normal intervals, no ST-T changes.) and Plain X-Ray (Chest: No acute intrathoracic pathology.) Radiology Impression Discussion of test interpretation with radiology: I have reviewed the radiologist's reading. Discharge Plan Discharge Clinical Impression: Chest pain Patient Disposition: Home, Self-Care Instructions: Chest Pain (ED) Prescriptions: No Action famotidine 20 mg tablet 1 tab PO BID propranolol 10 mg Tablet 10 mg PO BID Qty: 60 0RF Protocol: Hold for SBP/HR < HOLD for SBP < : 90 HOLD for HR < : 60 lorazepam 0.5 mg Tablet 0.5 mg PO DAILY Qty: 15 0RF lorazepam 1 mg Tablet 1 mg PO BEDTIME Qty: 15 0RF sertraline 50 mg Tablet 50 mg PO DAILY Qty: 30 0RF Referrals: Kiel Carr MD [Primary Care Provider] -
[2023-05-23 00:56] LABS: Anion Gap 15 (12-20); Blood Urea Nitrogen 13 mg/dL (9-16); Calcium 9.6 mg/dL (8.4-10.2); Carbon Dioxide 23 mmol/L (22-29); Chloride 107 mmol/L (96-108); Creatinine Clr Calc Pharmacy 132.8; Estimated Glomerular Filt Rate > 60; Glucose Random 82 mg/dL (60-115); Sodium 141 mmol/L (135-145)
[2023-05-23 01:06] LABS: Troponin-I High Sensitivity < 2.7 ng/L (<3.5-35.0)
[2023-05-23 01:19] LABS: D Dimer High Sensitivity < 150 NG/ML
[2023-05-23 01:26] VITALS: BP 116/74; PULSE 94; RESP 13; TEMP 36.9; O2SAT 97
[2023-05-23 03:39] VITALS: BP 110/57; PULSE 90; RESP 10; TEMP 36.7; O2SAT 98
[2023-05-23 04:03] LABS: Troponin-I High Sensitivity < 2.7 ng/L (<3.5-35.0)
[2023-05-23 04:29] VITALS: BP 120/92; PULSE 84; RESP 17; O2SAT 98
== END 2023-05-23 04:30 | disposition home or self-care (01) ==
PROVIDERS: Emergency Provider Emergency Medicine; PCP Pediatrics
DX: R07.9 Chest pain, unspecified (principal); M79.601 Pain in right arm
CPT/HCPCS: 36415; 71045; 80048; 84484; 85025; 85379; 93005; 99283; 99285

== ENCOUNTER 2023-06-26 22:42 | Emergency (ER) | payer OTHER, SELFPAY ==
--- NOTE | ~2023-06-26 | XR_ITS ---
EXAMINATION: XR WRIST, RIGHT CLINICAL INFORMATION: Pain and deformity COMPARISON: None available. TECHNIQUE: PA, lateral, and oblique views of the right wrist. FINDINGS: The bones and soft tissues are normal. No fracture. Alignment is anatomic with normal joint spaces. No erosions or abnormal soft tissue calcifications. XR/XR wrist RT 2V IMPRESSION: Normal right wrist.
[2023-06-26 22:56] VITALS: BP 124/81; PULSE 102; RESP 18; TEMP 36.8; O2SAT 96; BMI 28.0
--- NOTE | 2023-06-27 06:14 | ED.EXTPRO ---
HPI - Extremity Problem General Chief complaint: Extremity Injury, Upper Stated complaint: right arm pain from hand to shoulder Time Seen by Provider: 06/27/23 06:06 Source: patient Mode of arrival: ambulatory Limitations: no limitations History of Present Illness HPI Narrative: Patient been having and lateral aspect of right hand pain for last few days increases on movement of the hand no IVDA use no fever no skin color change Related Data Home Medications Medication Instructions Recorded Confirmed famotidine 20 mg tablet 1 tab PO BID 09/20/21 Previous Rx's Medication Instructions Recorded lorazepam 0.5 mg tablet 0.5 mg PO DAILY #15 tabs 09/25/21 lorazepam 1 mg tablet 1 mg PO BEDTIME #15 tabs 09/25/21 propranolol 10 mg tablet 10 mg PO BID #60 tabs 09/25/21 sertraline 50 mg tablet 50 mg PO DAILY #30 tabs 09/25/21 ibuprofen 600 mg tablet 600 mg PO Q6H PRN fever or pain 06/27/23 #30 tabs Allergies Allergy/AdvReac Type Severity Reaction Status Date / Time No Known Allergies Allergy Verified 03/01/23 01:26 Review of Systems Review of Systems: Yes all other systems are reviewed and are negative [facility] Past Medical History Medical History Active substance abuse Generalized anxiety disorder Major depression, recurrent, chronic Social History Social History Household Members: Family Household Members Other:: Mother and Step-Father Housing: House Do you presently have visiting nurse or other home services: No Alcohol intake: current Alcohol intake frequency: holidays/special occasions only Alcohol type: beer Patient Tobacco Use Status: Never used Tobacco Substance Use Type: Crack/Cocaine, Marijuana and Methamphetamine Advance Directives: No Advance Directives Information Provided: Yes service: No Sexual orientation: Straight/Heterosexual Physical Exam Vital Signs: Vital Signs: Last Vital Signs Temp 98.2 F 06/26/23 22:56 Pulse 102 H 06/26/23 22:56 Resp 18 06/26/23 22:56 BP 124/81 06/26/23 22:56 Pulse Ox 96 06/26/23 22:56 O2 Del Method Room Air 06/26/23 22:56 BMI result Body Mass Index 28.0 Extrem: Hand/finger images: 1. Small soft tissue swelling lateral aspect of the right 5th finger with mild tenderness no bony deformity Medical Decision Making Medical Decision Making MDM Narrative: Patient with ganglion cyst of the right 5th extensor tendon of the right hand x-ray negative discharge patient on ibuprofen advised not to overuse his right hand Discharge Plan Discharge Clinical Impression: Ganglion cyst Patient Disposition: Home, Self-Care Instructions: Ganglion Cysts (ED) Additional Instructions: Avoid overusing your right hand Ibuprofen for pain Follow-up with orthopedics if pain/swelling get worse Prescriptions: New ibuprofen 600 mg tablet 600 mg PO Q6H PRN (Reason: fever or pain) Qty: 30 0RF No Action famotidine 20 mg tablet 1 tab PO BID propranolol 10 mg Tablet 10 mg PO BID Qty: 60 0RF Protocol: Hold for SBP/HR < HOLD for SBP < : 90 HOLD for HR < : 60 lorazepam 0.5 mg Tablet 0.5 mg PO DAILY Qty: 15 0RF lorazepam 1 mg Tablet 1 mg PO BEDTIME Qty: 15 0RF sertraline 50 mg Tablet 50 mg PO DAILY Qty: 30 0RF Referrals: Grover Tanner MD [Physician] - 2 weeks
[2023-06-27] MEDS: Ibuprofen 600 MG TABLET PO (06:18)
== END 2023-06-27 06:20 | disposition home or self-care (01) ==
PROVIDERS: Emergency Provider Internal Medicine
DX: M67.441 Ganglion, right hand (principal); Z79.899 Other long term (current) drug therapy
CPT/HCPCS: 73100; 99283

== ENCOUNTER 2024-08-28 02:54 | Emergency (ER) | payer OTHER, SELFPAY ==
--- NOTE | 2024-08-28 | ECG_ITS ---
Test Reason : CHEST PAIN Blood Pressure : / mmHG Vent. Rate : 107 BPM Atrial Rate : 107 BPM P-R Int : 144 ms QRS Dur : 080 ms QT Int : 328 ms P-R-T Axes : 038 029 049 degrees QTc Int : 437 ms Sinus tachycardia Otherwise normal ECG When compared with ECG of 23-MAY-2023 00:16, No significant change was found Referred By: Generic ED Physician Electronically Signed By:ALEKSANDAR CAVANAUGH
--- NOTE | ~2024-08-28 | XR_ITS ---
EXAMINATION: XR CHEST CLINICAL INFORMATION: Chest pain COMPARISON: None available. TECHNIQUE: 2 views of the chest were obtained. FINDINGS: Normal appearance of the cardiomediastinal structures. No effusions or pneumothoraces. Normal pattern of pulmonary vasculature. No focal pulmonary consolidation. No skeletal abnormalities identified. XR/XR chest 2V IMPRESSION: No cardiopulmonary abnormalities identified. Electronically signed by: Hoang Casanova MD 08/28/2024 04:45 AM EDT
[2024-08-28 03:20] VITALS: BP 123/80; PULSE 101; RESP 16; TEMP 36.6; O2SAT 98; BMI 29.4
--- OUTSIDE RECORDS SUMMARY | 2024-08-28 05:36 | XMS_ITS | Continuity of Care Document ---
Author Organization [facility] Address [address] [facility] [place] [address]- Care Team Providers Care Celery Stripper Name Role Phone Kiel Carr MD Primary Care Physician [phone] Encounter [facility] [place] Date(s): 10/21/22 - 12/25/22 [facility] [address] [place] [address]- Attending Physician: Gilberto Her MD Admitting Physician: Gilberto Her MD Referring Physician: Kiel Carr MD Allergies, Adverse Reactions, Alerts No Known Allergies Medications Carafate 1 gm oral tablet 1 Gm, 1, tablet, By Mouth, 4 times a day, PRN, # 30 tablet, Refills 0, Tot. Refills 0, Maintenance,Dyspepsia, 08/25/22 4:20:00 EDT, Print Requisition, Partial fill upon patient request if the prescription is for a schedule II opioid drug. Start Date: 08/25/22 Status: Ordered cloNIDine 0.1 mg oral tablet 0.1 mg, 1, tablet, By Mouth, 2 times a day, # 60 tablet, Refills 0, Maintenance, 08/24/22 23:52:00 EDT, Partial fill upon patient request if the prescription is for a schedule II opioid drug. Start Date: 08/24/22 Status: Ordered hydrOXYzine hydrochloride 25 mg oral tablet 1 tablet = 25 mg, By Mouth, Daily, # 30 tablet, 0 Refills, Maintenance, 08/24/22 23:53:00 EDT, Tablet, Partial fill upon patient request if the prescription is for a schedule II opioid drug. Start Date: 08/24/22 Status: Ordered hydrOXYzine hydrochloride 50 mg oral tablet 1 tablet = 50 mg, By Mouth, Daily at bedtime, 0 Refills, Maintenance, 08/24/22 23:54:00 EDT, Partial fill upon patient request if the prescription is for a schedule II opioid drug. Start Date: 08/24/22 Status: Ordered Pepcid 40 mg oral tablet 1 tablet = 40 mg, By Mouth, Daily at bedtime, 0 Refills, Maintenance, 08/24/22 23:54:00 EDT, Partial fill upon patient request if the prescription is for a schedule II opioid drug. Start Date: 08/24/22 Status: Ordered Problem List Condition Confirmation Course Effective Dates Status Health [facility] Informant Headache disorder Confirmed Active Patient Care team information Care Team Personnel Name: Kiel Carr MD Position: Reference Physician Member Role: PCP Address: Address: [address] [place], [place] [address] [address]- Care Team Related Persons Name: AMOR BARON Address: home [address] [place] [address] Name: CEASAR CENTENO Address: home [address] [place] [id number] Name: ZAIRA HELTON
--- OUTSIDE RECORDS SUMMARY | 2024-08-28 05:36 | XMS_ITS | Continuity of Care Document ---
Author Organization [facility] Address [address] [place] [address]- Care Team Providers Care Net Software Developer Name Role Phone Kiel Carr MD Primary Care Physician Encounter [id number] Date(s): 09/03/23 - 09/10/23 [facility] [address] [place] [id number]- Attending Physician: Anay Silva MD Admitting Physician: Anay Silva MD Referring Physician: Kiel Carr MD Allergies, [...] opioid drug. Start Date: 08/24/22 Status: Ordered ibuprofen 600 mg oral tablet 600 mg, 1, tablet, By Mouth, Every 8 hours, # 30 tablet, Refills 0, Tot. Refills 0, Maintenance, 04/28/23 9:54:00 EDT, Route to Pharmacy Electronically, [id number], Partial fill uponpatient request if the prescription is for a schedu... Start Date: 04/28/23 Status: Ordered Pepcid 40 mg oral tablet 1 tablet = 40 mg, By Mouth, Daily at bedtime, 0 Refills, Maintenance, 08/24/22 23:54:00 EDT, Partial fill upon patient request if the prescription is for a schedule II opioid drug. Start Date: 08/24/22 Status: Ordered Problem List Condition Confirmation Course Effective Dates Status Health St atus Informant Headache disorder Confirmed Active Vital Signs Most recent to oldest [Reference Range]: 1 Height 178 cm (09/03/23 3:06 PM) Weight 94.9 kg (09/03/23 3:06 PM) Oxygen Saturation [94-100 %] 98 % (09/03/23 3:06 PM) Pulse Rate [55-90 bpm] 68 bpm (09/03/23 3:06 PM) Body Mass Index [18.5-24.99 kg/m2] 29.95 kg/m2 *H* (09/03/23 3:06 PM) Blood Pressure [90-138/55-84 mm Hg] 118/ 78mm Hg (09/03/23 3:06 PM) Mode of Delivery (Oxygen) Room air (09/03/23 3:06 PM) Blood pressure sites Arm, right (09/03/23 3:06 PM) Weight Obtained Via Patient/family state d (09/03/23 3:06 PM) Radiology * Shira RITCHIE, Josiahogu: PERFORM Event Display: IR Office Initial Note Authored Date: [id number] Patient: ??CHLOE VARGAS ? Age:??27 Years?Sex:??Male?:??1995?? Chief Complaint AVM OF KARLO R WRIST History of Present Illness 27-year-old male??with a??right wrist venous malformation??presents for evaluation.?? He attributesthis finding to??changes in his vasculature that??he noted after??escalating??methamphetamine use. ??He has been clean for 6 months and is taking his sobriety seriously. ??He has noted??changes in his GI??function/habits,??what he calls vascular changes including??waking up feeling cold all the time, as well as this??slight??swelling??on the ulnar aspect of his right wrist that??can sometimes geta little painful when he has been working??or using his hand. Review of Systems As per HPI. Forty three point health questionnaire reviewed with patient and scanned into EMR. Physical Exam Vitals & Measurements HR:??68??(Peripheral)?? BP:??118/78?? SpO2:??98%?? HT:??178??cm?? WT:??94.9??kg?? BMI:??29.95?? Well-nourished male in no distress.?? Small??ballotable??discolored??vessel/prominence??on the ulnar side of the right wrist.?? Duplex evaluation demonstrates this to be supplied and drained by a vein??to be quite compressible. ??Does not have arterial vascular signature.?? Thrombus. 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 This is amenable to percutaneous??embolization??or thrombin injection if desired, noting of course that there are risks associated with that such as vascular thrombosis. ??To the extent that he is quite asymptomatic from it, he would like to defer??on intervention at this time but if it does become more??painful or persistently painful,??he will follow-up with me??to discuss intervention. Problem List/Past Medical History Ongoing Headache disorder Procedure/Surgical History No qualifying data available. Medications Carafate 1 gm oral tablet, 1 Gm= 1 tablet, By Mouth, 4 times a day, PRN cloNIDine 0.1 mg oral tablet, 0.1 mg= 1 tablet, By Mouth, 2 times a day hydrOXYzine hydrochloride 25 mg oral tablet, 25 mg= 1 tablet, By Mouth, Daily hydrOXYzine hydrochloride 50 mg oral tablet, 50 mg= 1 tablet, By Mouth, Daily at bedtime ibuprofen 600 mg oral tablet, 600 mg= 1 tablet, By Mouth, Every 8 hours Pepcid 40 mg oral tablet, 40 mg= 1 tablet, By Mouth, Daily at bedtime Allergies NKA Social History Alcohol Use: Never. 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 Family History No family history recorded. Diagnostic Results Images right wrist ulnar side right wrist ulnar side right wrist ulnar side MRI R Wrist.[email or web address] Duplex evaluation of right wrist VM. Note * Michael Wilkins: PERFORM, SIGN, VERIFY Event Display: Patient Education/Instruction Authored Date: [id number] [facility] *[facility] [address] Clinical Summary Name CHLOE VARGAS Age 27 Years 1995 PCP Lilly RITCHIE, Kiel PCP Visit Date 09/03/2023 14:50:00 Additional Instructions: Scheduled Appointments?? Future Appointments ?No Future Appointments Scheduled Follow-Up Instructions ?? With: Address: When: As Needed 09/03/2023 12:00 AM Diagnosis Medications: Please continue your medications until treatment is completed or stopped by your provider. Discuss any questions related to medications with your provider. Medications to Continue with No Changes These medications were not printed or sent to your pharmacy Clonidine (cloNIDine 0.1 mg oral tablet) 1 tab(s) Oral twice a day. Next Dose: Famotidine (Pepcid 40 mg oral tablet) 1 tab(s) Oral Daily at Bedtime. Next Dose: HydrOXYzine (hydrOXYzine hydrochloride 25 mg oral tablet) 1 tab(s) Oral Daily. Next Dose: HydrOXYzine (hydrOXYzine hydrochloride 50 mg oral tablet) 1 tab(s) Oral Daily at Bedtime. Next Dose: Ibuprofen (ibuprofen 600 mg oral tablet) 1 tab(s) Oral every 8 hours. Refills: 0. Next Dose: Sucralfate (Carafate 1 gm oral tablet) 1 tab(s) Oral 4 times a day as needed Dyspepsia. Refills: 0. Next Dose: Allergy Info:?? NKA Medications Given This Visit Future Orders ?No future orders Vital Signs Height 178 cm Weight 94.9 kg BMI 29.95 kg/m2 Blood Pressure 118 mm Hg/78 mm Hg Temperature Pulse Rate 68 bpm Respiratory Rate 02 Sat Mode of Delivery 98 %/Room air You can now view a summary of your hospital visit from the comfort of your home through a free online portal called [employer]. [employer] is a website that allows you to securely view your medical information including discharge summary, medications and follow-up visits. ??You can alsosend a secure electronic message to your doctor???s office to request appointments, renew medications or just ask a question. You can enroll at [email or web address] or register during your next office visit. Disclaimer:?? The information provided is of a general nature and is intended to be used in conjunction with the recommendations and advice of your health care practitioner. ??Every effort has been made to ensure that the information provided is accurate and complete at the time it is provided to you however, as your needs change, or, as new ??information becomes available, different or additional instructions may be required. If you have questions, please consult with your primary care provider or pharmacist, as appropriate. ??This information is not intended to serve as substitution for assessment and evaluation by a qualified health care provider. If you do not have a primary care provider, you may find a [facility] provider by calling [facility] at [phone]. [facility], in keeping with [facility] guidance, no longer requires face masks for staff, patientsor visitors in most situations. Similar to time spent indoors at other locations, there is the chance that you were exposed to respiratory viruses during your time with us (such as flu or COVID-19).? If you develop symptoms concerning for a viral respiratory infection, please seek testing (and treatment if indicated) from your medical provider or home test kit. For information about the plan of care including goals and instructions for your diagnosis, please see the patient education orders section of this document. Patient Education Materials?? The content of this educational material or handout may have been modified, supplemented, or adapted from its original content and format to support your individualized medical care. Patient Care team information Care Team Personnel Name: Kiel Carr MD Position: Reference Physician Member Role: PCP Address: Address: [address] [place], [place] [address] [address]- [place] Care Team Related Persons Name: AMOR BARON Address: home [address] [place] [address] Name: CEASAR CENTENO Address: home [address] [place] [id number] Name: ZARIA HELTON
--- OUTSIDE RECORDS SUMMARY | 2024-08-28 05:36 | XMS_ITS | Continuity of Care Document ---
Author Organization [facility] Address [address] [facility] [place] [address]- Care Team Providers Care Lead Systems Architect Name Role Phone Kiel Carr MD Primary Care Physician Encounter [facility] Date(s): 11/25/22 - 02/11/23 [facility] [address] [place] [address]- Attending Physician: Gilberto Her MD Admitting Physician: [...] Reference Physician Member Role: PCP Address: Address: [address] [place] [address] [place] [address]- Care Team Related Persons Name: AMOR BARON Address: home [address] [place] [address] Name: CEASAR CENTENO Address: home [address] [place] [address] Name: ZARIA HELTON
--- OUTSIDE RECORDS SUMMARY | 2024-08-28 05:36 | XMS_ITS | Continuity of Care Document ---
Author Organization [facility] Address [address] [place] [address]- Care Team Providers Care Certified Athletic Trainer Name Role Phone Not on Staff, PCP Primary Care Physician Unavail able Encounter [facility] Date(s): 04/28/23 - 04/28/[address] [address]- Encounter Diagnosis Epicondylitis, lateral(Final) - 04/28/23 Discharge Disposition: A-D/C Home Attending Physician: Guerrero [...] 04/28/23 9:54:00 EDT, Route to Pharmacy Electronically, [id number], Partial fill uponpatient request if the prescription [...] St atus Informant Headache disorder Confirmed Active Results Radiology Reports * Exam Date Time Procedure Performing Provider Status 04/28/23 8:45 AM Chest 2 Views Frontal and Lat Enrique Reece; Vince (Verified) Notes: (Chest 2 Views Frontal and Lat) Reason For Exam: Angina RESULT: Chest 2 Views Frontal and Lat Chest 2 Views Frontal and Lat HX OF PRESENT ILLNESS: Pt with c o L arm pain that starts at his elbow down to the middle of his hand. Pain is constant and 6 10. Pt denies any injury. Pt has full ROM.; Reason: Angina; Clinical Question(s): CHF COMPARISON: Multiple prior chest x-rays, the most recent of which is dated 05/08/2022. FINDINGS: LINES AND TUBES: None. LUNGS AND PLEURA: Clear lungs. Normal pulmonary vascularity. No pleural effusion. No pneumothorax. HEART, MEDIASTINUM AND TORO: Heart is normal in size. Normal mediastinal and hilar contour. BONES AND SOFT TISSUES: No acute abnormality. IMPRESSION: No acute abnormality. I have personally reviewed the images and I agree with this report. WSN: [id number] Ordering Physician: Jena Hardy Dictated By: Devonte Sagastume MD Dictated Date/Time: 04/28/23 9:25 am Reviewed By: Roseline Jimenez MD Signed By: Roseline Jimenez MD Signed Date/Time: 04/28/23 9:30 am Transcribed By: SHELBY Transcribed Date/Time: 04/28/23 8:49 am Vital Signs Most recent to oldest [Reference Range]: 1 2 3 Height 178 cm (04/28/23 10:07 AM) 178 cm (04/28/23 7:43 AM) 178 cm (04/28/23:26 AM) Oxygen Saturation [94-100 %] 100 % (04/28/23 10:07 AM) 100 % (04/28/23:43 AM) 99 % (04/28/23: AM) Pulse Rate [55-90 bpm] 84 bpm (04/28/23 10:07 AM) 100 bpm *H* (04/28/23:43 AM) 98 bpm *H* (04/28/23: AM) Blood Pressure [90-138/55-84 mm Hg] 117/72mm Hg (04/28/23 10:07 AM) 130/80mm Hg (04/28/23:43 AM) 117/85mm Hg (04/28/23: AM) Respiratory Rate [16-30 br/min] 18 br/min (04/28/23 10:07 AM) 18 br/min (04/28/23 7:43 AM) 18 br/min (04/28/23 7:03 AM) Temperature [96.8-100.4 DegF] 98.0 DegF (04/28/23 10:07 AM) 98.9 DegF (04/28/23 7:43 AM) 98.4 DegF (04/28/23:26 AM) Mode of Delivery (Oxygen) Room air (04/28/23 10:07 AM) Room air (04/28/23 7:43 AM) Room air (04/28/23 7:03 AM) Blood pressure sites Arm, right (04/28/23 10:07 AM) Arm, right (04/28/23 7:43 AM) Arm, left (04/28/23 7:26 AM) Temperature Route Oral (04/28/23 10:07 AM) Oral (04/28/23 7:43 AM) Oral (04/28/23 7:26 AM) Dry Weight 84 kg (04/28/23 10:07 AM) 84 kg (04/28/23 7:43 AM) 84 kg (04/28/23 7:26 AM) EKG study * Event Display: ECG 12-Lead Authored Date: Please click on pdf link to open report * Event Display: ECG 12-Lead Authored Date: Ventricular Rate: 85 BPM Atrial Rate: 85 BPM P-R Interval: 148 ms QRS Duration: 86 ms Q-T Interval: 344 ms QTC Calculation(Bazett): 409 ms P [place]: 43 degrees R [place]: 48 degrees T [place]: 50 degrees Normal sinus rhythm with sinus arrhythmia Normal ECG When compared with ECG of 23-MAY-2022 01:55, No significant change was found Confirmed by FINESSE YUEN MD ([id number]) on 04/28/2023 4:53:18 PM Varina: FINESSE YUEN MD Note * Jena Vivar: PERFORM Event Display: Patient Education Leaflets Authored Date: Tennis Elbow ?? [id number] Tennis Elbow Muscles connect to bones by thick, fibrous cords (tendons). When the muscles are overused by repeated motion, the tendons may become inflamed and painful. This condition is called tendonitis. Tennis elbow (lateral epicondylitis) is a form of tendonitis. It occurs when the forearm muscles are used again and again in a twisting motion. Pain from tennis elbow occurs mainly on the outside of the elbow. But the pain can spread into the forearm and wrist. Your elbow may also be swollen and tender to the touch. The pain may get worse when you move your arm or do certain activities. Bending your wrist back, shaking hands, or turning a doorknob may cause pain. The pain often gets worse after several weeks or months. Sometimes you may feel pain when your arm is still. Tennis players who use a backhand stroke with poor technique are more likely to get tennis elbow. But playing tennis is only one cause of tennis elbow. Other common activities that can cause it include: ??? Hammering ??? Painting ??? Raking Besides tennis players, people at risk include energy analyst, gardeners, musicians, and dentists. Sometimes people get tennis elbow without doing anything that would cause the injury. Treatment includes resting the arm and taking anti-inflammatory medicines. Special splints can helpease symptoms. Symptoms should get better after 4 to 6 weeks of rest. You may need steroid injections if resting and using a splint don???t help. After the pain is relieved, you should change your activities so the symptoms don???t return. You may need physical therapy. It may include stretching, [id number], and strengthening exercises. These treatments help in most??cases. You may need surgery if your symptoms continue for 6 months despite treatment. Home care Follow these guidelines when caring for yourself at home: ??? Rest your elbow as needed. Protect itfrom movement that causes pain. You may be told to use a forearm splint at night to ease symptoms in the morning. Your healthcare provider may recommend a special wrap or splint to compress the muscles of the forearm. This can ease pain during daytime activities. As your symptoms get better, start to move your elbow more. ??? Put an ice pack on the injured area. Do this for 20 minutes every 1 to 2 hours the first day for pain relief. You can make an ice pack by wrapping a plastic bag of ice cubes in a thin towel. Continue using the ice pack 3 to 4 times a day for the next several days. Then use the ice pack as needed to ease pain and swelling. ??? You may use acetaminophen or ibuprofen to control pain, unless another pain medicine was prescribed. If you have chronic liver or kidney disease, talk with your healthcare provider before using these medicines. Also talk with your provider if you???ve had a stomach ulcer or gastrointestinal bleeding. ??? After your elbow heals, avoid the motion that caused your pain. Or learn to move in a way that causes less stress on the tendon. Using a forearm wrap may keep tennis elbow from happening again. ??? A tennis elbow strap may ease pain and keep you from further injury when you start playing tennis again.??You can also lower your risk for injury by warming up before you play and cooling down afterward. You should also use the right equipment. For instance, make sure your racquet has the right seam rubbing machine operator and is the right size for you. ?? Follow-up care Follow up with your healthcare provider as advised, or if your symptoms don???t get better after 2 to 3 weeks of treatment. ?? When to seek medical advice Call your healthcare provider right away if any of these occur: ??? Redness over the painful area ??? Pain, stiffness,??or swelling at the elbow gets worse ??? Any numbness or tingling in your arm, hands, or fingers ??? Unexplained fever of 100.4??F (38??C) or higher, or as directed by your healthcare provider ??? Chills ?? Last Reviewed Date: 2022 ?? [id number] [employer]. All rights reserved. This information is not intended as a substitute for professional medical care. Always follow your healthcare professional's instructions. ?? Laboratory * [facility] , CIS S: TRANSCRIBE Roseline Jimenez MD: VERIFY Devonte Sagastume MD: SIGN Event Display: Result: Authored Date: [id number] Chest 2 Views Frontal and Lat HX OF PRESENT ILLNESS: Pt with c o L arm pain that starts at his elbow down to the middle of his hand. Pain is constant and 6 10. Pt denies any injury. Pt has full ROM.; Reason: Angina; Clinical Question(s): CHF COMPARISON: Multiple prior chest x-rays, the most recent of which is dated 05/08/2022. FINDINGS: LINES AND TUBES: None. LUNGS AND PLEURA: Clear lungs. Normal pulmonary vascularity. No pleural effusion. No pneumothorax. HEART, MEDIASTINUM AND TORO: Heart is normal in size. Normal mediastinal and hilar contour. BONES AND SOFT TISSUES: No acute abnormality. IMPRESSION: No acute abnormality. I have personally reviewed the images and I agree with this report. WSN: [id number] Ordering Physician: Jena Hardy Dictated By: Devonte Sagastume MD Dictated Date/Time: 04/28/23 9:25 am Reviewed By: Roseline Jimenez MD Signed By: Roseline Jimenez MD Signed Date/Time: 04/28/23 9:30 am Transcribed By: SHELBY Transcribed Date/Time: 04/28/23 8:49 am Patient Care team information Care Team Personnel Name: Not on Staff, PCP Position: [facility] Physician (General Medicine) Member Role: PCP Name: Stephania Montilla RN Position: [facility] ED RN W/OE and Tasks Member Role: Patient Care Provider Name: Guerrero Brizuela MD Position: [facility] ED Medicine MD Member Role: Admitting Physician Address: Address: [address] [place] [address]- Name: Jena Vivar Position: [facility] Associate Professional Member Role: ED Physician Materials Research Engineer Address: Address: [address] [place] [address] [place] [address]- Name: Kecia Farfan Position: [facility] ED TA [facility] Member Role: Lead Based Paint Technician Care Team Related Persons Name: AMOR BARON Address: home [address] [place] [address] Name: CEASAR CENTENO Address: home [address] [place] [address] Name: ZARIA HELTON
--- OUTSIDE RECORDS SUMMARY | 2024-08-28 05:36 | XMS_ITS | Continuity of Care Document ---
Author Organization [facility] Address [address] [facility] [place] [address]- Care Team Providers Care Compliance Administrator Name Role Phone Kiel Carr MD Primary Care Physician Encounter [facility] Date(s): 01/12/23 - 02/11/23 [facility] [address] [place] [address]- Attending Physician: Jerry Melchor Admitting Physician: AdmJerry rush Referring Physician: AdmtrJerry Allergies, Adverse Reactions, Alerts No Known Allergies [...] Reference Physician Member Role: PCP Address: Address: [address] [place] [address] [place] [address]- Care Team Related Persons Name: AMOR BARON Address: home [address] [place] [address] Name: CEASAR CENTENO Address: home [address] [place] [address] Name: ZARIA HELTON
--- OUTSIDE RECORDS SUMMARY | 2024-08-28 05:36 | XMS_ITS | Continuity of Care Document ---
Author Organization [facility] Address [address] [place] [address]- Care Team Providers Care Butt Sawyer Name Role Phone Kiel Carr MD Primary Care Physician [phone] Encounter [facility] Date(s): 09/03/23 - 10/03/23 [facility] [address] [place], [place] [address] Attending Physician: Jerry Melchor Admitting Physician: AdmtrJerry Referring Physician: AdmtrJerry Allergies, Adverse Reactions, Alerts [...] 04/28/23 9:54:00 EDT, Route to Pharmacy Electronically, [facility] #[id number], Partial fill uponpatient request if the prescription [...] Reference Physician Member Role: PCP Address: Address: [address] [place] [address] [place] [address]- Care Team Related Persons Name: AMOR BARON Address: home [address] [place] [address] Name: CEASAR CENTENO Address: home [address] [place] [id number] Name: ZARIA HELTON
[2024-08-28 06:57] VITALS: BP 118/76; PULSE 86; RESP 18; O2SAT 97
[2024-08-28 07:12] LABS: MANUAL DIFF FLAG NO
[2024-08-28 07:14] LABS: Basophils Absolute Auto 0.1 X10*3/uL (0.0-0.2); Basophils Percent Auto 0.8 % (0-2); Eosinophils Absolute Auto 0.4 X10*3/uL (0.0-0.4); Eosinophils Percent Auto 5.1 % (0-4); Hematocrit 41.8 % (42.0-52.0); Hemoglobin 14.5 g/dl (14.0-18.0); Imm Gran Abs Auto 0.03 X10*3/uL (0.00-0.03); Imm Gran Pct Auto 0.4 % (0.0-0.4); Lymphocytes Absolute Auto 2.3 X10*3/uL (1.2-4.9); Lymphocytes Percent Auto 29.3 % (20-40); Mean Corpuscular HGB Conc 34.7 g/dl (31.0-36.0); Mean Corpuscular Hemoglobin 31.5 pg (27.0-33.0); Mean Corpuscular Volume 90.7 fL (80.0-98.0); Mean Platelet Volume 9.4 fL (9.4-12.4); Monocytes Absolute Auto 0.6 X10*3/uL (0.1-1.2); Neutrophils Absolute Auto 4.5 x10*3/uL (2.0-8.3); Neutrophils Percent Auto 56.4 % (45-73); Platelet Count 319 X10*3/uL (160-400); Red Blood Count 4.61 X10*6/uL (4.60-5.80); Red Cell Distribution Width 12.1 % (11.0-16.0)
[2024-08-28 07:29] LABS: Alanine Aminotransferase 40 U/L (0-40); Albumin Level 4.7 g/dL (3.5-5.0); Alkaline Phosphatase 69 U/L (39-117); Anion Gap 15 (12-20); Aspartate Amino Transferase 30 U/L (5-37); Bilirubin Total 0.6 mg/dL (0.0-1.0); Blood Urea Nitrogen 11 mg/dL (9-16); Calcium 9.9 mg/dL (8.4-10.2); Carbon Dioxide 25 mmol/L (22-29); Chloride 105 mmol/L (96-108); Creatinine Clr Calc Pharmacy 132.3; Estimated Glomerular Filt Rate > 60; Glucose Random 75 mg/dL (60-115); Sodium 141 mmol/L (135-145); Total Protein 8.1 g/dL (6.5-8.0)
[2024-08-28 07:42] LABS: Troponin-I High Sensitivity < 2.7 ng/L (<3.5-35.0)
== END 2024-08-28 11:15 | disposition left against medical advice (07) ==
PROVIDERS: Emergency Provider Emergency Medicine; PCP Pediatrics
DX: R07.9 Chest pain, unspecified (principal); Z53.21 Procedure and treatment not carried out due to patient leaving prior to being seen by health care provider
CPT/HCPCS: 36415; 71046; 80053; 84484; 85025; 93005; 99281; 99283

== ENCOUNTER 2025-11-06 22:52 | Emergency (ER) | payer OTHER, SELFPAY ==
[2025-11-06 22:55] VITALS: BP 138/93; PULSE 118; RESP 16; TEMP 36.7; O2SAT 99; BMI 23.7
--- NOTE | 2025-11-06 22:59 | ECG_ITS ---
Test Reason : TACHYCARDIA Blood Pressure : */* mmHG Vent. Rate : 100 BPM Atrial Rate : 100 BPM P-R Int : 154 ms QRS Dur : 84 ms QT Int : 334 ms P-R-T Axes : 61 53 53 degrees QTcB Int : 430 ms Normal sinus rhythm Normal ECG When compared with ECG of 28-Aug-2024 02:52, No significant change was found Referred By: Generic ED Physician Electronically Signed By: Hernesto Wilson
--- NOTE | 2025-11-06 23:00 | PC.NURSE ---
fire extinguisher charger notified of pt cc, skin wpd, pimple like rash to chest noticed 3 hrs ago, verbalized improvement after showering. airway patent pt speaking full clear sentences. fire extinguisher charger also aware of methamphetamine use early today. tachy in triage, ekg ordered. awaiting bed availability at this time.
[2025-11-06 23:18] LABS: Hematocrit 43.2 % (42.0-52.0); Hemoglobin 15.1 g/dl (14.0-18.0); Imm Gran Abs Auto 0.01 X10*3/uL (0.00-0.03); Imm Gran Pct Auto 0.2 % (0.0-0.4); Lymphocytes Absolute Auto 2.7 X10*3/uL (1.2-4.9); MANUAL DIFF FLAG NO; Mean Corpuscular HGB Conc 35.0 g/dl (31.0-36.0); Mean Corpuscular Hemoglobin 31.0 pg (27.0-33.0); Mean Corpuscular Volume 88.7 fL (80.0-98.0); NRBC Abs Auto 0.000 X10*3/uL (0.0-0.012); NRBC Pct Auto 0.0 /100WBC (0.0-0.2); Platelet Count 329 X10*3/uL (160-400); Red Blood Count 4.87 X10*6/uL (4.60-5.80); White Blood Count 6.3 X10*3/uL (4.8-10.8)
[2025-11-06 23:54] LABS: Alanine Aminotransferase 18 U/L (0-40); Albumin Level 5.0 g/dL (3.5-5.0); Alkaline Phosphatase 63 U/L (39-117); Anion Gap 14 (12-20); Aspartate Amino Transferase 20 U/L (5-37); Blood Urea Nitrogen 8 mg/dL (9-16); Calcium 9.7 mg/dL (8.4-10.2); Carbon Dioxide 29 mmol/L (22-29); Chloride 103 mmol/L (96-108); Creatinine Clr Calc Pharmacy 111.4; Estimated Glomerular Filt Rate > 60; Magnesium 2.0 mg/dL (1.6-2.6); Potassium 3.8 mmol/L (3.3-5.1); Sodium 142 mmol/L (135-145); Total Protein 8.0 g/dL (6.5-8.0)
--- OUTSIDE RECORDS SUMMARY | 2025-11-07 01:12 | XMS_ITS | Encounter Summary ---
Author Organization [facility] Address [address] [facility] [address] [place] [address] Phone Care Team Providers Care Psychic Reader Name Role Phone Kiel Carr MD Primary Care Provider [phone] Carmen Lloyd [facility] Unavailable Obi Reeves MD Primary Care Provider [phone] Kiel Carr MD Primary Care Provider [phone] Reason for Visit * Reason Onset Date Comments Results 09/30/2023 Encounter Details Date Type Department Care Team (Late st Contact Info) Description 09/30/2023 Telephone [facility] [address] [place] [address] Aria Matute, CHANDAN [address] [place] [address] [email or web address] Results Social History Tobacco Use Types Packs/Day Years Used Date Smoking Tobacco: Never Smokeless Tobacco: Never Alcohol Use Standard Drinks/Week Comments Not Currently 0 (1 standard drink = 0.6 oz pur e alcohol) last drink 05/2022 Child or Family Care Answer Date Record ed Do you have problems with on e of the following making it difficult for you to work, study, or receive health care? No 08/05/2020 Education Answer Date Recorded Are you interested in more education? Not on franklin e 03/19/2023 Are you concerned about learning? Not on file 03/19/2023 No 03/19/2023 No 03/19/2023 Food Answer Date Recorded Within the past 6 months we worried whether our food would run out before we got money to buy more. Never True 08/05/2020 Within the past 6 months the food we bought just didn't last and we didn't have enough money to get more. Never True 0 Paying for Meds Answer Date Recorded Do you have trouble paying for medicines? No 08/05/2020 Paying Utility Bills Answer Date Record ed Do you have trouble paying your heating or elect ricity bill? No 08/05/2020 Transportation Answer Date Recorded Has the lack of transportati on kept you from medical appointments or from getting medications? No 08/05/2020 Digital Access Answer Date Recorded No 04/13/2023 No 04/13/2023 Reliable internet access at home? Not on file 04/13/2023 Device with a working camera? Not on file Sex and Gender Information Value Date Recorded Sex Assigned at Male 06/30/2020 10:05 PM EDT Legal Sex Male 8:50 PM EDT Gender Identity Male 06/30/2020 10:05 PM EDT Sexual Orientation Straight 06/30/2020 10 :05 PM EDT Occupation Industry Job Start Date Job End Date unemployed Not on file Not on file Not on file documented as of this encounter Progress Notes * Aria Matute RN - 09/30/2023 9:33 AM EST Images from the original note were not included. Result Care Coordination Result Notes and Patient Communication Released Seen Back to Top Call patient, recommend he see Dr. Siddiqui follow-up of what appears to be a short tear of the cartilage in the hip. ??This is likely what has been causing his pain. Written by Kiel Carr MD on 09/29/2023 ??6:06 PM EST Seen by patient Osmany Luke on 09/30/2023 ??9:21 AM Patient notified of results and instructions as per provider. Verbalizes understanding and agreement for ortho referral. He reports he has an appointment with pcp 15 minutes as a follow up. Referral order pended. documented in this encounter Plan of Treatment Upcoming Encounters Date Type Department Care Team (Late st Contact Info) Description 01/24/2026 3:00 PM EST Office Visit [facility] [address] [place] [address] Kiel Carr MD [address] [facility], [address] [place] [address] 03/05/2026 10:00 AM EDT Office Visit [facility] [address], [address] [place] [address] Prince Guido MD [address] [place] [address], [address] [place] [address] documented as of this encounter Visit Diagnoses Diagnosis Chronic left hip pain- Primary documented in this encounter Care Teams Psychic Reader Relationship Specialty Start Date End Date Kiel Carr MD [address] [place] [address], [address] [place] [address] PCP - General Internal Medicine 07/22/20 09/09/25 Obi Reeves MD [address] [facility] [place] [address] PCP - General Internal Medicine 09/10/25 09/13/25 Kiel Carr MD [address] [place] [address], [address] [place] [address] PCP - General Internal Medicine 09/14/25 Carmen Lloyd, [facility] [address] [place] [address] [email or web address] Hand Rigger Licensed Mental Health Counselor 06/12/25 08/08/25 documented as of this encounter Additional Source Comments The information contained in this document represents components of the legal health record. It is not the complete legal health record.[facility]
--- OUTSIDE RECORDS SUMMARY | 2025-11-07 01:12 | XMS_ITS | Encounter Summary ---
Author Organization [facility] Address [address] [place] [address] [place] [address] Phone Care Team Providers Care Perianesthesia Nurse Name Role Phone Kiel Carr MD Primary Care Provider [phone] Kiel Carr MD Unavailable [phone] Carmen Lloyd [facility] Unavailable Obi Reeves MD Primary Care Provider [phone] Kiel Carr MD Primary Care Provider [phone] Encounter Details Date Type Department Care Team (Late st Contact Info) Description 09/25/2022 Procedure Pass [facility] Scan - [address] [address] Social History Tobacco Use Types Packs/Day Years Used Date Smoking Tobacco: Never Smokeless Tobacco: Never Alcohol Use Standard Drinks/Week Comments Not Currently 0 (1 standard drink = 0.6 oz pur e alcohol) Child or Family Care Answer Date Record ed Do you have problems with on e of the following making it difficult for you to work, study, or receive health care? No 08/05/2020 Education Answer Date Recorded Are you interested in help w ith more adult education (for example, completing high school, GED, job training, learning the Pashto language, technical skills, or developing parenting skills)? No 08/05/2020 Food Answer Date Recorded Within the past [...] appointments or from getting medications? No 08/05/2020 Sex and Gender Information Value Date Recorded Sex Assigned at Male 06/30/2020 10:05 PM EDT Legal Sex Male 8:50 PM EDT Gender Identity Male 06/30/2020 10:05 PM EDT Sexual Orientation Straight 06/30/2020 10 :05 PM EDT Occupation Industry Job Start Date Job End Date unemployed Not on file Not on file Not on file documented as of this encounter Functional Status * Calculated C-SSRS Risk Score (Lifetime/Recent) Answer Date of Assessment Author No Risk Indicated 09/26/2022 6:17 PM EDT Rachelle Law RN * [place] Suicide Severity Rating Scale (Screener/Recent Self-Report) Question Answer Date of Assessment Author 1. Wish to be (Past 1 Month) No 022 6:17 PM EDT Rachelle Law RN 2. Non-Specific Active Suici vivien Thoughts (Past 1 Month) No 09/26/2022 6:17 PM EDT Casper Law RN 6. Suicidal Behavior (Lifetime) No 6:17 PM EDT Rachelle Law RN documented as of this encounter Plan of Treatment Upcoming Encounters Date Type Department Care Team (Late st Contact Info) Description 01/24/2026 3:00 PM EST Office Visit [facility] [address] [place] [address] Kiel Carr MD [address] [facility] [place] [address] 03/05/2026 10:00 AM EDT Office Visit [facility] [address] [place] [address] [address]rd Floor, [address] [place] [address] Prince Guido MD [address] [facility], [address] [place] [address] documented as of this encounter Visit Diagnoses Not on filedocumented in this encounter Care Teams Perianesthesia Nurse Relationship Specialty Start Date End Date Kiel Carr MD [address] [place] [address], [address] [place] [address] PCP - General Internal Medicine 07/22/20 09/09/25 Obi Reeves MD [address] [place] [address], [address] [place] [address] PCP - General Internal Medicine 09/10/25 09/13/25 Kiel Carr MD [address] [place] [address], [address] [place] [address] PCP - General Internal Medicine 09/14/25 Kiel Carr MD [address] [place] [address], [address] [place] [address] Insurance Assigned Provider 09/28/20 07/31/23 Carmen Lloyd, [facility] [address] [place] [id number] [place] Licensed Mental Health Counselor 06/12/25 08/08/25 documented as of this encounter Additional Source Comments The information contained in this document represents components of the legal health record. It is not the complete legal health record.[facility]
--- OUTSIDE RECORDS SUMMARY | 2025-11-07 01:12 | XMS_ITS | Encounter Summary ---
Author Organization [facility] Address [address] [place] [address] [place] [address] Phone Care Team Providers Care Client Executive Name Role Phone Kiel Carr MD Primary Care Provider [phone] Kiel Carr MD Unavailable [phone] Carmen Lloyd [facility] Unavailable Obi Reeves MD Primary Care Provider [phone] Kiel Carr MD Primary Care Provider [phone] Encounter Details Date Type Department Care Team (Late st Contact Info) Description 02/11/2021 Procedure Pass [facility], Ct Scan - [address] [address] Social History Tobacco Use Types Packs/Day Years Used Date Smoking Tobacco: Never Smokeless Tobacco: Never Alcohol Use Standard Drinks/Week Comments Yes 0 (1 standard drink = 0.6 oz pure alcohol) few beers daily, more on the weekend Child or Family Care Answer Date Record [...] Date of Assessment Author No Risk Indicated 02/11/2021 12:48 PM EDT Tracy Latham RN * [place] Suicide Severity Rating Scale (Screener/Recent Self-Report) Question Answer Date of Assessment Author 1. Wish to be (Past 1 Month) No 02/11/2021 12:48 PM EDT Sen Blanton RN 2. Non-Specific Active Suicidal Thoughts (Past 1 Month) No 02/11/2021 12:48 PM EDT Sen Blanton RN 6. Suicidal Behavior (Lifetime) No 02/11/2021 12:48 PM EDT Sen Blanton RN documented as of this encounter Plan of Treatment Upcoming Encounters Date Type Department Care Team (Late st Contact Info) Description 01/24/2026 3:00 PM EST Office Visit [facility] [address] [place] [address] Kiel Carr MD [address] [place] [address], [address] [place] [address] 03/05/2026 10:00 AM EDT Office Visit [facility] [address] [place] [address] 3rd Floor, [address] [place] [address] Prince Guido MD [address] [facility], [address] [place] [address] documented as of this encounter Visit Diagnoses Not on filedocumented in this encounter Care Teams Client Executive Relationship Specialty Start Date End Date Kiel Carr MD [address] [facility], [address] [place] [address] PCP - General Internal Medicine 07/22/20 09/09/25 Obi Reeves MD [address] [place] [address], [address] [place] [address] PCP - General Internal Medicine 09/10/25 09/13/25 Kiel Carr MD [address] [place] [address], [address] [place] [address] PCP - General Internal Medicine 09/14/25 Kiel Carr MD [address] [place] [address], [address] [place] [address] Insurance Assigned Provider 09/28/20 07/31/23 Carmen Lloyd [facility] [address] [place] [address] Simplex Operator Licensed Mental Health Counselor 06/12/25 08/08/25 documented as of this encounter Additional Source Comments The information contained in this document represents components of the legal health record. It is not the complete legal health record.[facility]
--- OUTSIDE RECORDS SUMMARY | 2025-11-07 01:12 | XMS_ITS | Encounter Summary ---
Author Organization [facility] Address [address] [place] [address] [place] [address] Phone Care Team Providers Care Rag Collector Name Role Phone Kiel Carr MD Primary Care Provider [phone] Kiel Carr MD Unavailable [phone] Carmen Lloyd [facility] Unavailable Obi Reeves MD Primary Care Provider [phone] Kiel Carr MD Primary Care Provider [phone] Encounter Details Date Type Department Care Team (Late st Contact Info) Description 01/12/2023 Procedure Pass [facility] Endoscopy Admitting Dept Virtual Department [address] [place] [address] Social History Tobacco Use Types Packs/Day Years [...] high school, GED, job training, learning the Eritrean language, technical skills, or developing parenting skills)? [...] on file documented as of this encounter Plan of Treatment Upcoming Encounters Date Type Department Care Team (Late st Contact Info) Description 01/24/2026 3:00 PM EST Office Visit [facility] [address] [place] [address] [place] [address] Kiel Carr MD [address] [place] [address], [address] [place] [address] [email or web address] 03/05/2026 10:00 AM EDT Office Visit [facility] [address] [place] [address] 3rd Floor, [address] [place] [address] Prince Guido MD [address] [place] [address], [address] [place] [address] documented as of this encounter Visit Diagnoses Not on filedocumented in this encounter Care Teams Rag Collector Relationship Specialty Start Date End Date Kiel Carr MD [address] [place] [address], [address] [place] [address] [email or web address] PCP - General Internal Medicine 07/22/20 09/09/25 Obi Reeves MD [address] [place] [address], [address] [place] [address] PCP - General Internal Medicine 09/10/25 09/13/25 Kiel Carr MD [address] [place] [address], [address] [place] [address] PCP - General Internal Medicine 09/14/25 Kiel Carr MD [address] [place] [address], [address] [place] [address] [email or web address] Insurance Assigned Provider 09/28/20 07/31/23 Carmen Lloyd, [facility] [address] [place] [address] [email or web address] Receptionist Secretary Licensed Mental Health Counselor 06/12/25 08/08/25 documented as of this encounter Additional Source Comments The information contained in this document represents components of the legal health record. It is not the complete legal health record.[facility]
--- OUTSIDE RECORDS SUMMARY | 2025-11-07 01:12 | XMS_ITS | Encounter Summary ---
Author Organization [facility] Address [address] [facility] [address] [place] [address] Phone Care Team Providers Care Division Plant Engineer Name Role Phone Kiel Carr MD Primary Care Provider [phone] Kiel Carr MD Unavailable [phone] Carmen Lloyd [facility] Unavailable Obi Reeves MD Primary Care Provider [phone] Kiel Carr MD Primary Care Provider [phone] Reason for Visit * Reason Onset Date Comments Referral 02/09/2022 Encounter Details Date Type Department Care Team (Late st Contact Info) Description 02/09/2022 Telephone [facility] [address] [place] [address] Kiel Carr MD 22 [facility], [address] [place] [address] [email or web address] Referral Social History Tobacco Use Types Packs/Day Years [...] high school, GED, job training, learning the Georgian language, technical skills, or developing parenting skills)? 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 Has not been right since then. 2016 Had MRI And XR at [facility]. Reports can be seen in [facility] viewer. Suggested to patient that he should discuss with provider for best first course of action. Has chiropractor visit today and may want to continue with that. Will discuss at appointment 02/12 * Kiel Carr MD - 02/10/2022 9:27 PM EDT I do not understand what kind of shoulder injection treatment would be done with chiro? Please clarify * Sarah Zimmerman - 02/09/2022 2:43 PM EDT Referral Request 1. Name of the office where the patient has been seen/requests to be seen: [facility] 2. Reason for referral/specialist appointment and the diagnosis code: upper back and lower back pain/ shoulder inj 3. Date of appointment(s):02/09/22 4. Name of specialist provider: Dr Kyra Ayoub 5. NPI number to enter for referral authorization (enter n/a if not available): [id number] 6. Number of visits requested for referral: 20 7. Fax number of specialist office to send referral authorization: [phone] documented in this encounter Plan of Treatment Upcoming Encounters Date Type Department Care Team (Late st Contact Info) Description 01/24/2026 3:00 PM EST Office Visit [facility] [address] [place] [address] Kiel Carr MD [address] [place] [address], [address] [place] [address] 03/05/2026 10:00 AM EDT Office Visit [facility] [address], [address] [place] [address] Prince Guido MD [address] [place] [address], [address] [place] [address] documented as of this encounter Visit Diagnoses Not on filedocumented in this encounter Care Teams Division Plant Engineer Relationship Specialty Start Date End Date Kiel Carr MD [address] [place] [address], [address] [place] [address] [email or web address] PCP - General Internal Medicine 07/22/20 09/09/25 Obi Reeves MD 22 [facility], [address] [place] [address] PCP - General Internal Medicine 09/10/25 09/13/25 Kiel Carr MD 22 [facility], [address] [place] [address] PCP - General Internal Medicine 09/14/25 Kiel Carr MD [address] [place] [address], [address] [place] [address] Insurance Assigned Provider 09/28/20 07/31/23 Carmen Lloyd, [facility] [address] [place] [address] [email or web address] Events Intern Licensed Mental Health Counselor 06/12/25 08/08/25 documented as of this encounter Additional Source Comments The information contained in this document represents components of the legal health record. It is not the complete legal health record.[facility]
--- OUTSIDE RECORDS SUMMARY | 2025-11-07 01:12 | XMS_ITS | Encounter Summary ---
Author Organization [facility] Address [address] [place] [address] [place] [address] Phone Care Team Providers Care Calculation Clerk Name Role Phone Kiel Carr MD Primary Care Provider [phone] Carmen Lloyd [facility] Unavailable Obi Reeves MD Primary Care Provider [phone] Kiel Carr MD Primary Care Provider [phone] Encounter Details Date Type Department Care Team (Late st Contact Info) Description 10/06/2023 Procedure Pass [facility]oscopy Admitting Dept Virtual Department [address] [place] [address] Social History Tobacco Use Types Packs/Day Years Used Date Smoking Tobacco: Never Smokeless Tobacco: Never Alcohol Use Standard Drinks/Week Comments Not Currently 0 (1 standard drink = 0.6 oz pur e alcohol) last drink 05/2023 Child or Family Care Answer Date Record [...] with a working camera? Not on file Intimate Partner Violence Answer Date R ecorded Denied Basic Needs Not on file 10/05/2023 In the past 12 months have y ou been in a relationship with a person who hurts, threatens, or tries to control you? No 10/05/2023 Worried food would run out Not on file 10/05 In the past 12 months have y ou been in a relationship with a person who hurts, threatens, or tries to control you? No 10/05/2023 Sex and Gender Information Value Date Recorded [...] 01/24/2026 3:00 PM EST Office Visit [facility] [address] [place] [address] Kiel Carr MD [address] [facility], [address] [place] [address] 03/05/2026 10:00 AM EDT Office Visit [facility] [address], [address] [place] [address] Prince Guido MD [address] [facility], [address] [place] [address] [email or web address] documented as of this encounter Visit Diagnoses Not on filedocumented in this encounter Care Teams Calculation Clerk Relationship Specialty Start Date End Date Kiel Carr MD [address] [facility], [address] [place] [address] PCP - General Internal Medicine 07/22/20 09/09/25 Obi Reeves MD [address] [facility], [address] [place] [address] PCP - General Internal Medicine 09/10/25 09/13/25 Kiel Carr MD [address] [facility], [address] [place] [address] PCP - General Internal Medicine 09/14/25 Carmen Lloyd, [facility] [address] [place] [address] Gis Analyst Developer Licensed Mental Health Counselor 06/12/25 08/08/25 documented as of this encounter Additional Source Comments The information contained in this document represents components of the legal health record. It is not the complete legal health record.[facility]
--- OUTSIDE RECORDS SUMMARY | 2025-11-07 01:12 | XMS_ITS | Encounter Summary ---
Author Organization [facility] Address [address] [place] [address] [place] [address] Phone Care Team Providers Care Kids Activities Coach Name Role Phone Kiel Carr MD Primary Care Provider [phone] Kiel Carr MD Unavailable [phone] Carmen Lloyd [facility] Unavailable Obi Reeves MD Primary Care Provider Kiel Carr MD Primary Care Provider [phone] Encounter Details Date Type Department Care Team (Late st Contact Info) Description 05/10/2022 Procedure Pass [facility], Ct Scan - [address] [address] Social History Tobacco Use Types Packs/Day Years [...] high school, GED, job training, learning the Tajik language, technical skills, or developing parenting skills)? [...] Description 01/24/2026 3:00 PM EST Office Visit [facility] [address] [place] [address] [place] [address] Kiel Carr MD [address] [place] [address], [address] [place] [address] 03/05/2026 10:00 AM EDT Office Visit [facility] [address], [address] [place] [address] Prince Guido MD [address] [place] [address], [address] [place] [address] documented as of this encounter Visit Diagnoses Not on filedocumented in this encounter Care Teams Kids Activities Coach Relationship Specialty Start Date End Date Kiel Carr MD [address] [place] [address], [address] [place] [address] PCP - General Internal Medicine 07/22/20 09/09/25 Obi Reeves MD [address] [place] [address], [address] [place] [address] PCP - General Internal Medicine 09/10/25 09/13/25 Kiel Carr MD [address] [place] [address], [address] [place] [address] PCP - General Internal Medicine 09/14/25 Kiel Carr MD [address] [place] [address], [address] [place] [address] Insurance Assigned Provider 09/28/20 07/31/23 Carmen Lloyd, [facility] [address] [place] [address] [email or web address] Medical Supervisor Licensed Mental Health Counselor 06/12/25 08/08/25 documented as of this encounter Additional Source Comments The information contained in this document represents components of the legal health record. It is not the complete legal health record.[facility]
--- OUTSIDE RECORDS SUMMARY | 2025-11-07 01:13 | XMS_ITS | Clinical Summary ---
Author Organization [facility] Address [address] [place] [address] Phone Care Team Providers Care Pole Inspector Name Role Phone Nan Dennison MD Primary Care Provider [phone] Allergies No known active allergies Medications sertraline (ZOLOFT) 50 MG tablet Take 50 mg by mouth daily. 10/07/20 22 Active clonazePAM (KLONOPIN) 0.5 MG tablet Take 1.5 mg by mouth 3 (three) times a day as needed. 10/07/20 22 Active multivitamin-m inerals-lutein (CENTRUM SILVER) Tab Take 1 tablet by mouth daily. Active propranoloL (INDERAL) 10 MG immediate release tablet Take 10 mg by mouth 2 (two) times a day. 02/03/20 23 Active ibuprofen (ADVIL,MOTRIN) 600 MG tablet TAKE 1 TABLET BY MOUTH EVERY 6 HOURS NEEDED FOR FEVER OR PAIN 06/27/20 23 Active mometasone (ELOCON) 0.1 % creamIndicatio ns:Intrinsic eczema Apply topically daily. On arms, hands as needed for eczema 45 g 1 08/19/20 23 Active naproxen sodium (ALEVE ORAL) Take by mouth. Activ e omeprazole (PRILOSEC) 20 mg TbECIndication s:gastroesopha geal reflux disease Take 20 mg by mouth daily. Indications: gastroesophageal reflux disease Active Active Problems Problem Noted Date Diagnosed Date Foot sprain, left, initial encounter 09/14/2025 Palpitations 12/07/2024 Assessment & Plan (12/07/2024 10:26 AM EST): Patient endorses approximately daily fleeting palpitations. He is unsure if this is related to his anxiety. He has had a previous unremarkable echo 07/2023 and previous monitor showed no concerning finding or symptom correlation to anything other than sinus rhythm/sinus tach. Offered to repeat a monitor today, patient politely declines. Asked patient to follow-up in 6 months for reevaluation. He takes propranolol. Patient shares that he has been abstaining from smoking methamphetamine for the past 20 days, but prior to this, was using regularly after course of previous sobriety. Discussed how dangerous this can be for his cardiac health and overall health and recommended ongoing abstinence. At this time, patient states he has good support at home and lives with his parents and follows with his PCP, psychiatrist and therapist regularly. Intractable abdominal pain 10/19/2023 Overview (10/19/2023): Not clear regarding cause, as he has had significant evaluation including recent upper and lower endoscopies. I am a bit concerned by the heme positive stool even though the stool is brown. Colonoscopy was 13 days ago. Will check CBC with differential, CRP, sed rate, if the above are abnormal would consider repeat imaging even though he is very hesitant to have further CT scans. He has had 3 in the last year or so. He needs to see Dr. Dennison this Wednesday Heme positive stool 10/19/2023 Tear of left acetabular labrum 09/30/2023 Ganglion cyst of dorsum of right wrist Assessment & Plan (07/05/2023 2:09 PM EDT): Exam and history consistent with ganglion cyst. Unable to review images taken at recent ER visit but pt notes ER provider also felt this to be ganglion. Given pain and increased size will initiate ortho referral for further evaluation and management. Pt verbalized understanding, agreeable to plan. Chills (without fever) 07/05/2023 Assessment & Plan (07/05/2023 2:09 PM EDT): Unclear etiology. Will check laboratories. Advised pt keep symptom log and call with worsening. Methamphetamine abuse 12/07/2022 Overview (12/07/2022): At his mother's wishes, he was section 35, at [facility] for 63 days till mid-August. He started smoking meth again in September. Today we discussed that it is absolutely imperative that he stop, I recommended he look at [facility] rehab in [place] Assessment & Plan (09/12/2024 3:19 PM EDT): He relapsed recently, now is getting support from his family and his therapist. Assessment & Plan (01/20/2023 9:50 PM EST): Ongoing active methamphetamine use. He is in the care of a psychiatrist. I encouraged him to pursue a topic of his substance use and also chronic pain. He states he had not mentioned the gabapentin to the psychiatrist. Left lower quadrant abdominal pain 10/12/2022 Assessment & Plan (01/20/2023 9:53 PM EST): Awaiting GI follow-up to further assess his left lower quadrant pain and a CT scan which was unremarkable. Exams have been unremarkable as have been labs. The plan is for him to have endoscopy, but he has not been able to maintain sobriety in order to do this test safely. A normal colonoscopy would confirm my suspicion that this is more of a psychosomatic pain response. Assessment & Plan (10/12/2022 11:11 AM EST): This is a 27-year-old gentleman who reports having a 3 to 4-month history of a burning type abdominal pain in the left lower quadrant that is worse at the end of the day worse with sitting or lifting. The patient has undergone significant work-up which I have reviewed both imaging and readings and the primary care physician most recent office note. Patient had a CT scan abdomen and pelvis which was negative. He documents a ultrasound that was done through [facility] which was also negative of the abdominal wall and abdominal cavity, he has also had a x-ray of the pelvis and bilateral hips which was negative. On my evaluation of the patient there is no evidence of inguinal hernia and I do not see inguinal hernia or other pathology on the CT scan imaging that I reviewed today. On further discussion with the patient he also has left lower back pain that he reports radiates in a bandlike fashion around to the left lower quadrant to the midline in the suprapubic region. This appears to be a radiculopathy that may be related to disc disease in the lower back and not a muscular or hernia etiology. I believe the patient would benefit from seeing orthopedic surgeon or a neurosurgeon and undergoing a MRI of the back to further evaluate for disc disease that would cause the type of radiculopathy that the patient is experiencing in the left lower quadrant. There is no indication for any surgical intervention at this time. The patient should follow-up with his primary care doctor for referral to the orthopedic surgeon and would benefit from an MRI. Generalized anxiety disorder 05/26/2022 Assessment & Plan (07/19/2025 9:25 AM EDT): Continue Zoloft, continue counseling with behavioral therapy. Assessment & Plan (01/20/2023 9:50 PM EST): Likely exacerbated by methamphetamine use. Continue his psychiatric follow-up for med management. Cervicalgia 05/22/2022 Assessment & Plan (05/22/2022 10:30 AM EDT): I recommend the patient try some home exercises and if this is not helpful physical therapy. He was not interested in this type of intervention, he wants an MRA of his neck. I do not see any indication for imaging. His symptoms are clearly related to musculoskeletal injury. The patient was angry and using profanity. I told him that this type of behavior was unacceptable in our practice and if it continued he would need to seek care elsewhere. Substance use disorder 01/25/2022 Assessment & Plan (07/19/2025 9:25 AM EDT): In counseling for methamphetamine use disorder. He has not returned to use for the past 4 weeks. Continue counseling. Assessment & Plan (06/21/2023 5:14 PM EDT): Polysubstance use disorders in early remission. He is commended for his efforts and I hope that he continues to work on remaining sober and getting the help that he needs. Intrinsic eczema 05/30/2021 Assessment & Plan (06/21/2023 5:14 PM EDT): For the spots on his abdomen that are somewhat itchy, recommend he try using the steroid cream that he was prescribed. Assessment & Plan (01/20/2023 9:51 PM EST): Previous hydrocortisone cream was not effective for him. Recommend trial of mometasone 0.0% cream topically to the affected areas. He should use a moisturizer daily such as Vaseline to keep his skin from drying out and causing the itchy rash cycle. Hx of substance abuse 04/06/2021 Assessment & Plan (04/06/2021 3:52 PM EDT): Last meth use a month ago. He has used cocaine intranasal in the past more regularly, last month was first use of meth. He is embarrassed and ashamed, not planning on using again. Strongly family history of substance use disorders. We dicussed coping strategies, working on anxiety/stress in a positive way, avoiding potentially addicting substances altogether due to high risk for developing substance use disorder. Counseling encouraged. He agrees to look into counseling as he only pursued counseling in the past that was mandated as part of probation for non-drug related offense. Gastritis and gastroduodenitis 04/04/2021 Assessment & Plan (07/19/2025 9:25 AM EDT): History of gastritis, gastroduodenitis, followed by Dr. Alberts her last EGD was 2022, next will be due in 2025. Continue omeprazole. He is asymptomatic. Assessment & Plan (06/21/2023 5:15 PM EDT): Patient is advised to resume use of famotidine twice daily to help with his gastritis symptoms. He should also avoid trigger foods for GERD. Handout given. Upper and lower endoscopies are planned with GI. HPV (human papilloma virus) anogenital infection 08/06/2020 Encounters Date Type Department Care Team Description 10/22/2025 [facility] RISK SCORES SYSTEM GENERATED External System Generated Encounter [address] [place] [address] Unknown, UnknownMD 09/30/2025 [facility] RISK SCORES SYSTEM GENERATED External System Generated Encounter [address] [place] [address] Unknown, UnknownMD 09/25/2025 [facility] RISK SCORES SYSTEM GENERATED External System Generated Encounter [address] [place] [address] Unknown, Unknown, 09/24/2025 [facility] RISK SCORES SYSTEM GENERATED External System Generated Encounter [address] [place] [address] Unknown, UnknownMD 09/14/2025 3:00 PM EDT Office Visit [facility] [address] [place] [address] Reid Gonzalez MD Foot sprain, left, initial encounter (Primary Dx) 08/31/2025 Orders Only [facility] [address] [place] [address] Khang Perkins [place] Left foot pain (Primary Dx) 08/20/2025 [facility] RISK SCORES SYSTEM GENERATED External System Generated Encounter [address] [place] [address] Unknown, UnknownMD 08/09/2025 Telephone [facility] [address] [place] [address] Carmen Lloyd, [facility] Post Discharge Follow Up Call ([facility]) from Last 3 Months Immunizations Immunization Administration Dates Next Due DTaP, unspecified formulation 08/05/2001 ,06/19/1998,06/26/1997,04/13,1996 HPV,quadrivalent 02/08/2013,02/05/2012 HPV9 02/24/2022 Hepatitis B, unspecified formulation 06/26/1997, 1996,1996 Hib, unspecified formulation 06/19/1998, 06/26/1997,04/13/1997,11/29 IPV 08/05/2001, 7,04/13/1997,11/29 Influenza Quadrivalent Prese rvative Free IM 08/19/2023,09/29/2021 Influenza quadrivalent nasal 09/11/2011 Influenza, Unspecified Formulation 10/10/2007 MMR 08/05/2001,06/19/1998 Meningococcal ACWY, unspecif ied formulation 11/28/2010 Meningococcal MCV4P 03/03/2010 Td (adult),2 Lf Tetanus Toxo id, PF, Adsorbed 09/22/2023 Tdap 11/28/2010,07/23/2009 Varicella 11/28/2010,03/03/2010,10/03/1997 Family History Medical History Relation Comments LILLY disease Brother on PPI Cirrhosis Father hepatitis c Father No Known Problems Mother Heart attack Paternal Grandfather Relation Status Comments Brother Alive Father Mother Alive Paternal Grandfather (Age 38) Sister 1 Alive Sister 2 Alive Social History Tobacco Use Types Packs/Day Years Used Date Smoking Tobacco: Never Smokeless Tobacco: Never Tobacco Cessation:Counseling Given: Not Answered Alcohol Use Standard Drinks/Week Comments Not Currently [...] file Not on file Not on file Last Filed Vital Signs Vital Sign Reading Time Taken Comments Blood Pressure 120/72 07/19/2025 8:45 AM EDT Pulse 79 07/19/2025 8:45 AM EDT Temperature 36.1 C (97 F) 07/19/2025 8:45 AM EDT Respiratory Rate 20 10/29/2023 8:13 AM EST Oxygen Saturation 98% 07/19/2025 8:45 AM EDT Inhaled Oxygen Concentration - - Weight 78.3 kg (172 lb 11.2 oz) 09/14/2025 3:26 PM EDT Height 180.3 cm (5' 11 ) 09/14/2025 3:26 PM EDT Body Mass Index 24.09 09/14/2025 3:26 PM EDT Plan of Treatment Upcoming Encounters Date Type Department Care Team (Late st Contact Info) Description 01/24/2026 3:00 PM EST Office Visit [facility] [address] [place] [address] Nan Dennison MD [address] [facility] [place] [address] [email or web address] 03/05/2026 10:00 AM EDT Office Visit [facility] [address] [facility] 3rd Floor, [address] [place], [place] [id number] Angelica Guido MD [address] [facility], [address] [place] [address] [email or web address] Health Maintenance Due Date Last Done Comments INFLUENZA VACCINE (#1) 2025 , 09/29/2021, 09/11/2011, Additional history exists COVID-19 VACCINE (2024- season) 2025 COLOGUARD 09/24/2025 FIT TEST 09/24/2025 FOBT 09/24/2025 SIGMOIDOSCOPY 09/24/2025 VIRTUAL COLONOSCOPY 09/24/2025 DEPRESSION SCREENING 07/19/2026 07/19/2025, 07/19/20 25 Adult Td,Tdap Booster 09/22/2033 09/22/2023 , 11/28/2010, 07/23/2009 COLONOSCOPY 10/06/2033 10/06/2023 COLORECTAL CANCER SCREENING 10/06/2033 HIB VACCINES Completed 06/19/1998, 03/1997, 04/13/1997, Additional history exists MENINGOCOCCAL VACCINES (ACWY) Aged Out 11/28/2010, 03/03/2010 No longer eligibl e based on patient's age to complete this topic HEPATITIS C SCREENING Completed 07/14/2024 , 07/14/2024, 02/24/2022 HIV ONE-TIME SCREENING (18-65 YEARS) Completed 07/14/2024 SMOKING STATUS SCREENING (Once After 26 Yrs) Completed 09/14/2025 HEPATITIS A VACCINES Aged Out No long er eligible based on patient's age to complete this topic MENINGOCOCCAL VACCINES (B) Aged Out N o longer eligible based on patient's age to complete this topic PNEUMOCOCCAL VACCINES (0-49 years) Aged Out No longer eligible based on patient's age to complete this topic Medical Devices Not on file Procedures Procedure Name Priority Date/Time Associated Diagnosis Comments XR FOOT (LEFT) Routine 08/31/2025 1:56 PM EDT Left foot pain HEPATITIS C ANTIBODY, QUALITATIVE Routine 07/14/2024 11:59 AM EDT Screening for human immunodeficiency virus ENDOSCOPY, COLON 10/06/2023 1:39 PM EST from Last 3 Months or Most Recently Relevant to Health Maintenance Results * Hepatitis C antibody, qualitative (07/14/2024 11:59 AM EDT) HCV NON-REACTIV E NON-REACTI VE [facility] Blood 07/14/2024 11:5 9 AM EDT 07/14/2024 12:00 PM EDT us Nan Dennison MD LAB BLOOD BKR ORDERABLES Final Result [facility] [address] [place] [address] * ENDOSCOPY, COLON (10/06/2023 1:39 PM EST) Narrative Transcriptions Angelica Barnes MD - 10/06/2023 1:39 PM EST [facility] Patient Name: Osmanywashington Butler Attending MD:: ANGELICA BARNES MD, Procedure Date: 10/06/2023 1:39 PM Date of : 1995 Age: 28 Admit Type: Outpatient Gender: Male Room: [place] [address] Referring MD: NAN DENNISON MD Exam Type: Colonoscopy Indications: Abdominal pain Medications: Monitored Anesthesia Care Procedure: Informed consent was obtained from the patientafter discussion of the indications, limitations, alternatives, benefits, and risks of the procedure. Risks specifically discussed include but are not limited to medication reactions, missed lesions, bleeding, perforation, or the need for emergent surgery. Throughout the procedure, the patient's blood pressure, pulse, end-tidal CO2, and oxygensaturations were monitored continuously. The Colonoscope was introduced through the anus and advanced to the terminal ileum, with identificationof the appendiceal orifice and IC valve. Thecolonoscopy was performed without difficulty. The patient tolerated the procedure well. The quality of thebowel preparation was good. The ileocecal valve,appendiceal orifice, and rectum were photographed. Complications: No immediate complications. Estimated blood loss:None. Findings: The terminal ileum appeared normal. This wasbiopsied with a cold forceps for histology. Examination of the right colon was repeated in retroflexion and again in NBI. Retroflexion wasalso performed in the rectum. Internal hemorrhoids were found duringretroflexion. The hemorrhoids were mild. The exam was otherwise without abnormality. Biopsies for histology were taken with a coldforceps from the entire colon for evaluation of microscopic colitis. Impression: - The examined portion of the ileum was normal. Biopsied. - Internal hemorrhoids. - The examination was otherwise normal. - Biopsies were taken with a cold forceps from the entire colon for evaluation of microscopiccolitis. Recommendation: - Patient has a contact number available for emergencies. The signs and symptoms of potential delayed complications were discussed with thepatient. Return to normal activities tomorrow. Written discharge instructions were provided to thepatient. - Await pathology results. - Return to GI office as previously scheduled. Angelica Barnes ANGELICA BARNES MD 10/06/2023 2:07:32 PM This report has been signed electronically. Number of Addenda: 0 Note Initiated On: 10/06/2023 1:39 PM Procedure Code(s): --- Professional --- 86381, Colonoscopy, flexible; with biopsy, single or multiple --- Technical --- 04844, Colonoscopy, flexible; with biopsy, single or multiple CPT copyright 2021 [employer]. All rights reserved. The codes documented in this report are preliminary and upon dietary assistant reviewmay be revised to meet current compliance requirements. Procedure Date: 10/06/2023 1:39:21 PM [address] [place], [place] [id number] Nan Dennison MD GI PROCEDURE ORDERABLES Final Result from Last 3 Months or Most Recently Relevant to Health Maintenance Insurance [facility] Care Teams Pole Inspector Relationship Specialty Start Date End Date Nan Dennison MD [address] [place] [address], [address] [place] [address] [email or web address] PCP - General Internal Medicine 09/14/25 Additional Source Comments The information contained in this document represents components of the legal health record. It is not the complete legal health record.[facility]
--- OUTSIDE RECORDS SUMMARY | 2025-11-07 01:13 | XMS_ITS | Encounter Summary ---
Author Organization [facility] Address [address] [place] [address] [place] [address] Phone Care Team Providers Care Engineering Faculty Member Name Role Phone Kiel Carr MD Primary Care Provider [phone] Kiel Carr MD Unavailable [phone] Carmen Lloyd [facility] Unavailable Obi Reeves MD Primary Care Provider [phone] Kiel Carr MD Primary Care Provider [phone] Encounter Details Date Type Department Care Team (Late st Contact Info) Description 07/15/2023 Procedure [facility] [address] [place] [address] Social History Tobacco Use Types Packs/Day Years [...] Description 01/24/2026 3:00 PM EST Office Visit [facility] [address] [place] [address] Kiel Carr MD [address] [place] [address], [address] [place] [address] [email or web address] 03/05/2026 10:00 AM EDT Office Visit [facility] [address], [address] [place] [address] Prince Guido MD [address] [place] [address], [address] [place] [address] documented as of this encounter Visit Diagnoses Not on filedocumented in this encounter Care Teams Engineering Faculty Member Relationship Specialty Start Date End Date Kiel Carr MD [address] [facility], [address] [place] [address] PCP - General Internal Medicine 07/22/20 09/09/25 Obi Reeves MD [address] [facility] [place] [address] PCP - General Internal Medicine 09/10/25 09/13/25 Kiel Carr MD [address] [facility] [place] [address] PCP - General Internal Medicine 09/14/25 Kiel Carr MD [address] [place] [address], [address] [place] [address] Insurance Assigned Provider 09/28/20 07/31/23 Carmen Lloyd, [facility] [address] [place] [id number] [email or web address] Data Integration Developer Licensed Mental Health Counselor 06/12/25 08/08/25 documented as of this encounter Additional Source Comments The information contained in this document represents components of the legal health record. It is not the complete legal health record.[facility]
--- OUTSIDE RECORDS SUMMARY | 2025-11-07 01:13 | XMS_ITS | Encounter Summary ---
Author Organization [facility] Address [address] [place] [address] [place] [address] Phone Care Team Providers Care Senior Qualitative Researcher Name Role Phone Kiel Carr MD Primary Care Provider Keil Carr MD Unavailable [phone] Carmen Lloyd [facility] Unavailable Obi Reeves MD Primary Care Provider Kile Carr MD Primary Care Provider [phone] Encounter Details Date Type Department Care Team (Latest Contact Info) Description 03/17/2023 Transcribe Orders [facility] [place] [facility] 2nd Floor [place], [place] [id number] Viviana Curran CNP [address] [place] [address] Black stools (Primary Dx); Right sided abdominal pain Social History Tobacco Use Types Packs/Day Years [...] Description 01/24/2026 3:00 PM EST Office Visit [facility] [address] [place] [address] Kiel Carr MD [address] [place] [address], [address] [place] [address] 03/05/2026 10:00 AM EDT Office Visit [facility] [address] [place] [address] 3rd Floor, [address] [place] [address] Prince Guido MD [address] [place] [address], [address] [place] [address] documented as of this encounter Results * C-Reactive Protein (03/17/2023 3:44 PM EDT) C REACTIVE PROTEIN <3.0 0.0 - 4.0 mg/L [facility] Blood 03/17/2023 3:44 PM EDT 03/17/2023 3:49 PM EDT Viviana Natalie Magdy [facility] LAB BLOOD BKR ORDERABLES F inal Result [address] [address] * Comprehensive metabolic panel (03/17/2023 3:44 PM EDT) Pathologist [facility] SODIUM 139 133 - 146 mmol/L [facility] POTASSIUM 4.0 3.3 - 5.1 mmol/L [facility] CHLORIDE 103 96 - 108 mmol/L [facility] CO2 24 21 - 35 mmol/L [facility] BUN 12 6 - 19 mg/dL [facility] CREATININE 0.90 0.5 - 1.5 mg/dL [facility] GLUCOSE 96 70 - 99 mg/dL [facility] ALBUMIN 4.3 3.9 - 4.8 g/dL [facility] TOTAL PROTEIN 7.3 6.5 - 8.0 g/dL [facility] CALCIUM 9.3 8.4 - 10.3 mg/dL [facility] ALKALINE PHOSPHATASE 67 39 - 117 U/L [facility] TOTAL BILIRUBIN 0.2 0.0 - 1.2 mg/dL [facility] AST 26 0 - 37 U/L [facility] ALT 14 0 - 40 U/L [facility] GLOBULIN 3.0 1 - 4.8 g/dL [facility] EGFR >120 >59 mL/min/1.7 3m2 [facility] Comment:Estimated glomerular filtration rate calculated using the CKD-EPI refit equation. ANION GAP 16 10 - 20 mmol/L [facility] Blood 03/17/2023 3:44 PM EDT 03/17/2023 3:49 PM EDT Viviana Curran [facility] LAB BLOOD BKR ORDERABLES F inal Result [facility] [address] [place] [address] * (ABNORMAL) CBC and differential (03/17/2023 3:44 PM EDT) WBC 9.36 4.00 - 11.00 K/uL [facility] RBC 4.22(L) 4.48 - 5.88 M/uL [facility] HGB 13.0(L) 13.4 - 17.5 g/dL [facility] HCT 37.1(L) 38.0 - 51.0 % [facility] PLT 395 140 - 430 K/uL [facility] MCV 87.9 78.0 - 97.0 fL [facility] MCH 30.8 25.0 - 33.0 pg [facility] MCHC 35.0 32.0 - 36.0 g/dL [facility] RDW 12.8 11.0 - 15.0 % [facility] MPV 10.5 8.4 - 12.8 fl [facility] DIFF METHOD Auto [facility] NEUTS 58.7 43.0 - 75.0 % [facility] LYMPHS 27.7 18.2 - 47.4 % [facility] MONOS 6.6 4.00 - 11.00 % [facility] EOS 5.9 0.0 - 8.0 % [facility] BASOS 0.7 0.0 - 2.0 % [facility] Granulocytes, immature (%) 0.4 0.0 - 0.9 % [facility] ABSOLUTE NEUTS 5.49 1.80 - 7.70 K/uL [facility] ABSOLUTE LYMPHS 2.59 1.00 - 3.10 K/uL [facility] ABSOLUTE MONOS 0.62 0.20 - 0.80 K/uL [facility] ABSOLUTE EOS 0.55 0.00 - 0.80 K/uL [facility] ABSOLUTE BASOS 0.07 0.00 - 0.09 K/uL [facility] Granulocytes, immature 0.04 0.00 - 0.05 K/uL [facility] Blood 03/17/2023 3:4 4 PM EDT 03/17/2023 3:49 PM EDT us Viviana Curran [employer]ICATION[employer] EQUIPMENT OPERATOR LAB BLOOD BKR ORDERABLES F inal Result [facility] [address] [place] [address] documented in this encounter Visit Diagnoses Diagnosis Black stools- Primary Nonspecific abnormal finding in stool contents Right sided abdominal pain Abdominal pain, unspecified site documented in this encounter Care Teams Senior Qualitative Researcher Relationship Specialty Start Date End Date Kiel Carr MD 22 [facility], [address] [place] [address] PCP - General Internal Medicine 07/22/20 09/09/25 Obi Reeves MD [address] [place] [address], [address] [place] [address] PCP - General Internal Medicine 09/10/25 09/13/25 Kiel Carr MD [address] [place] [address], [address] [place] [address] PCP - General Internal Medicine 09/14/25 Kiel Carr MD [address] [place] [address], [address] [place] [address] Insurance Assigned Provider 09/28/20 07/31/23 Carmen Lloyd, [facility] [address] [place] [address] Security Assistant Licensed Mental Health Counselor 06/12/25 08/08/25 documented as of this encounter Additional Source Comments The information contained in this document represents components of the legal health record. It is not the complete legal health record.[facility]
--- OUTSIDE RECORDS SUMMARY | 2025-11-07 01:13 | XMS_ITS | Encounter Summary ---
Author Organization [facility] Address [address] [place] [address] [place] [address] Phone Care Team Providers Care Tree Puller Name Role Phone Kiel Carr MD Primary Care Provider [phone] Carmen Lloyd [facility] Unavailable Obi Reeves MD Primary Care Provider [phone] Kiel Carr MD Primary Care Provider [phone] Encounter Details Date Type Department Care Team (Late st Contact Info) Description 09/22/2023 Procedure Pass [address] [place] [address] Social History Tobacco Use Types Packs/Day Years [...] Description 01/24/2026 3:00 PM EST Office Visit [facility] [address] [place] [address] [place] [address] Kiel Carr MD [address] [place] [address], [address] [place] [address] 03/05/2026 10:00 AM EDT Office Visit [facility] [address] Floor, [address] [place] [address] Prince Guido MD [address] [place] [address], [address] [address] documented as of this encounter Visit Diagnoses Not on filedocumented in this encounter Care Teams Tree Puller Relationship Specialty Start Date End Date Kiel Carr MD 22 [facility], [address] [place] [address] PCP - General Internal Medicine 07/22/20 09/09/25 Obi Reeves MD [address] [place] [address], [address] [place] [address] PCP - General Internal Medicine 09/10/25 09/13/25 Kiel Carr MD [address] [place] [address], [address] [place] [address] PCP - General Internal Medicine 09/14/25 Carm[facility] [address] [place] [address] [email or web address] Sling Operator Licensed Mental Health Counselor 06/12/25 08/08/25 documented as of this encounter Additional Source Comments The information contained in this document represents components of the legal health record. It is not the complete legal health record.[facility]
--- OUTSIDE RECORDS SUMMARY | 2025-11-07 01:13 | XMS_ITS | Encounter Summary ---
Author Organization [facility] Address [address] [place] [address] [place] [address] Phone Care Team Providers Care Hand Ornament Maker Name Role Phone Kiel Carr MD Primary Care Provider [phone] Kiel Carr MD Unavailable [phone] Carmen Lloyd [facility] Unavailable Obi Reeves MD Primary Care Provider [phone] Kiel Carr MD Primary Care Provider [phone] Encounter Details Date Type Department Care Team (Late st Contact Info) Description 03/11/2023 Procedure Pass [facility], Ct Scan - [address] [address] Social History Tobacco Use Types Packs/Day Years [...] high school, GED, job training, learning the Polish language, technical skills, or developing parenting skills)? [...] Date of Assessment Author No Risk Indicated 03/11/2023 5:41 PM EDT Roseline Cruz, RN * [place] Suicide Severity Rating Scale (Screener/Recent Self-Report) Question Answer Date of Assessment Author 1. Wish to be (Past 1 Month) No 023 5:41 PM EDT Roseline Aguirre, RN 2. Non-Specific Active Suici vivien Thoughts (Past 1 Month) No 03/11/2023 5:41 PM EDT Roseline Aguirre, RN 6. Suicidal Behavior (Lifetime) No 3 5:41 PM EDT Roseline Aguirre, RN documented as of this encounter Plan of Treatment Upcoming Encounters Date Type Department Care Team (Late st Contact Info) Description 01/24/2026 3:00 PM EST Office Visit [facility] [address] [place] [address] Kiel Carr MD [address] [place] [address], [address] [place] [address] 03/05/2026 10:00 AM EDT Office Visit [facility] [address] [place] [address] 3rd Floor, [address] [place] [address] Prince Guido MD 22 [facility], [address] [place] [address] documented as of this encounter Visit Diagnoses Not on filedocumented in this encounter Care Teams Hand Ornament Maker Relationship Specialty Start Date End Date Kiel Carr MD [address] [place] [address], [address] [place] [address] PCP - General Internal Medicine 07/22/20 09/09/25 Obi Reeves MD [address] [place] [address], [address] [place] [address] PCP - General Internal Medicine 09/10/25 09/13/25 Kiel Carr MD [address] [place] [address], [address] [place] [address] PCP - General Internal Medicine 09/14/25 Kiel Carr MD [address] [place] [address], [address] [place] [address] Insurance Assigned Provider 09/28/20 07/31/23 Carmen Lloyd [facility] [address] [place] [address] Wood Die Maker Licensed Mental Health Counselor 06/12/25 08/08/25 documented as of this encounter Additional Source Comments The information contained in this document represents components of the legal health record. It is not the complete legal health record.[facility]
--- OUTSIDE RECORDS SUMMARY | 2025-11-07 01:13 | XMS_ITS | Encounter Summary ---
Author Organization [facility] Address [address] [place] [address] [place] [address] Phone Care Team Providers Care Social Work Case Manager Name Role Phone Kiel Carr MD Primary Care Provider [phone] Carmen Lloyd [facility] Unavailable Obi Reeves MD Primary Care Provider [phone] Kiel Carr MD Primary Care Provider [phone] Encounter Details Date Type Department Care Team (Late st Contact Info) Description 08/19/2023 Procedure Pass [facility], [address] [address] Social History Tobacco Use Types Packs/Day Years [...] on file documented as of this encounter Last Filed Vital Signs Vital Sign Reading Time Taken Comments Blood Pressure - - Pulse - - Temperature - - Respiratory Rate - - Oxygen Saturation - - Inhaled Oxygen Concentration - - Weight 93.4 kg (206 lb) 08/21/2023 10:02 AM EDT Height 177.8 cm (5' 10 ) 08/21/2023 10:02 AM EDT Body Mass Index 29.56 08/21/2023 10:02 AM EDT documented in this encounter Plan of Treatment Upcoming Encounters Date Type Department Care Team (Late st Contact Info) Description 01/24/2026 3:00 PM EST Office Visit [facility] [address] [place] [address] Kiel Carr MD 22 [facility], [address] [place] [address] 03/05/2026 10:00 AM EDT Office Visit [facility] [address] Floor, [address] [place] [address] Prince Guido MD 22 [facility], [address] [place] [address] documented as of this encounter Visit Diagnoses Not on filedocumented in this encounter Care Teams Social Work Case Manager Relationship Specialty Start Date End Date Kiel Carr MD [address] [place] [address], [address] [place] [address] PCP - General Internal Medicine 07/22/20 09/09/25 Obi Reeves MD [address] [place] [address], [address] [place] [address] PCP - General Internal Medicine 09/10/25 09/13/25 Kiel Carr MD [address] [place] [address], [address] [place] [address] PCP - General Internal Medicine 09/14/25 Carmen Lloyd, [facility] [address] [place] [address] Drainage Engineer Licensed Mental Health Counselor 06/12/25 08/08/25 documented as of this encounter Additional Source Comments The information contained in this document represents components of the legal health record. It is not the complete legal health record.[facility]
--- OUTSIDE RECORDS SUMMARY | 2025-11-07 01:13 | XMS_ITS | Encounter Summary ---
Author Organization [facility] Address [address] [place] [address] [place] [address] Phone Care Team Providers Care Loader Operator/Ground Leader Name Role Phone Kiel Carr MD Primary Care Provider [phone] Kiel Carr MD Unavailable [phone] Carmen Lloyd [facility] Unavailable Obi Reeves MD Primary Care Provider [phone] Kiel Carr MD Primary Care Provider [phone] Encounter Details Date Type Department Care Team (Late st Contact Info) Description 07/09/2023 Procedure Pass [address] [place] [address] Social History Tobacco Use Types Packs/Day Years [...] Description 01/24/2026 3:00 PM EST Office Visit [facility] [address] [place] [address] Kiel Carr MD [address] [place] [address], [address] [place] [address] 03/05/2026 10:00 AM EDT Office Visit [facility] [address], [address] [place] [address] Prince Guido MD [address] [place] [address], [address] [place] [address] documented as of this encounter Visit Diagnoses Not on filedocumented in this encounter Care Teams Loader Operator/Ground Leader Relationship Specialty Start Date End Date Kiel Carr MD 22 [facility], [address] [place] [address] PCP - General Internal Medicine 07/22/20 09/09/25 Obi Reeves MD 22 [facility], [address] [place] [address] PCP - General Internal Medicine 09/10/25 09/13/25 Kiel Carr MD 22 [facility], [address] [place] [address] PCP - General Internal Medicine 09/14/25 Kiel Carr MD [address] [place] [address], [address] [place] [address] [email or web address] Insurance Assigned Provider 09/28/20 07/31/23 Carmen Lloyd, [facility] [address] [place] [address] [email or web address] Loft Rigger Licensed Mental Health Counselor 06/12/25 08/08/25 documented as of this encounter Additional Source Comments The information contained in this document represents components of the legal health record. It is not the complete legal health record.[facility]
[2025-11-07 01:47] VITALS: BP 126/90; PULSE 106; RESP 17; TEMP 37.3; O2SAT 100
--- NOTE | 2025-11-07 01:47 | ED.SKABFB ---
HPI - Skin/Abscess/Foreign Bdy General Chief complaint: Skin/Abscess/Foreign Body Stated complaint: allergic reaction Time Seen by Provider: 11/07/25 01:46 Source: patient Mode of arrival: ambulatory Limitations: no limitations History of Present Illness ED Provider: Sigifredo DAVILA HPI narrative: The patient is a 30-year-old male presenting to the ED for evaluation of a sudden onset red, itchy rash on the anterior left chest noticed earlier today. He reports daily methamphetamine use over the last several months and used a small amount earlier today from his usual supply. Shortly after use he noted warmth, inflammation, and pruritus of the area. He showered prior to arrival and the appearance improved slightly; he now mainly notes residual erythema. He denies associated vomiting, fever, or perceived throat swelling. He has no known medication, food, or environmental allergies. Past dermatologic history notable for eczema. He has taken no medications for the rash prior to arrival. Related Data Home Medications ?Medication ?Instructions ?Recorded ?Confirmed famotidine 20 mg tablet 1 tab PO BID 09/20/21 Previous Rx's ?Medication ?Instructions ?Recorded lorazepam 0.5 mg tablet 0.5 mg PO DAILY #15 tabs 09/25/21 lorazepam 1 mg tablet 1 mg PO BEDTIME #15 tabs 09/25/21 propranolol 10 mg tablet 10 mg PO BID #60 tabs 09/25/21 sertraline 50 mg tablet 50 mg PO DAILY #30 tabs 09/25/21 ibuprofen 600 mg tablet 600 mg PO Q6H PRN fever or pain 06/27/23 #30 tabs diphenhydramine HCl 25 mg capsule 25 mg PO TID PRN allergic reaction 11/07/25 (Benadryl) #10 caps prednisone 20 mg tablet 60 mg (3 x 20 mg) PO DAILY 5 days 11/07/25 #15 tabs Allergies Allergy/AdvReac Type Severity Reaction Status Date / Time No Known Allergies Allergy Verified 11/06/25 22:58 Review of Systems Review of Systems: Yes all other systems are reviewed and are negative PMFSH Past Medical History Medical History Active substance abuse Generalized anxiety disorder Major depression, recurrent, chronic Social History Social History Household Members: Family Household Members Other:: Mother and Step-Father Housing: House Do you presently have visiting nurse or other home services: No Alcohol intake: current Alcohol intake frequency: a few times a month Alcohol type: beer Patient Tobacco Use Status: Never used Tobacco Substance Use Type: Methamphetamine service: No Sexual orientation: Straight/Heterosexual Physical Exam Vital Signs: Vital Signs: Last Vital Signs Temp 99 F 11/07/25 02:55 Pulse 101 H 11/07/25 02:55 Resp 16 11/07/25 02:55 BP 146/84 H 11/07/25 02:55 Pulse Ox 99 11/07/25 02:55 O2 Del Method Room Air 11/07/25 02:55 BMI result Body Mass Index 23.7 CONSTITUTIONAL: The patient appears non-toxic, well nourished and in no acute distress. Vital signs as documented. HEAD: Atraumatic, normocephalic. EYES: EOMs grossly intact, pupils equal, conjunctiva clear, no exudate. ENT: Nares patent, no discharge. Airway patent, no audible stridor, visible mucosa is pink and moist without noted lesions. Posterior pharynx demonstrates a midline nonedematous uvula, no tonsillar or peritonsillar swelling, no tonsillar exudate. NECK: trachea is midline, no obvious masses or gross abnormalities. CHEST: Symmetric movement, normal appearance. LUNGS: Non-labored work of breathing. CARDIAC: No evidence of hypoperfusion. ABDOMEN: Nondistended, no obvious injury. : Deferred. EXTREMITIES: Moves all extremities spontaneously without reported pain. No obvious injury or deformity noted. NEURO: Alert and oriented x3, CN II-XII appear grossly intact. Cerebellar Functioning grossly intact. Speech clear and appropriate. SKIN: Warm, dry, color appropriate. There is a macular poorly demarcated mildly warm nontender blanching confluent rash noted to the left sternal border and left chest, no associated vesicles, purulence, fluctuance, tenderness, papules, or ulcerations. There are also chronic appearing lesions consistent with mild picking noted to the upper abdomen and remainder of the chest, however these are not associated with the primary rash, and appear chronic in nature. No other rashes or lesions noted. Medications Administered Discontinued Medications Generic Name Dose Route Start Last Admin Trade Name Freq PRN Reason Stop Dose Admin Diphenhydramine HCl 25 mg 11/07/25 02:02 11/07/25 02:08 Diphenhydramine Hcl 25 Mg Capsule PO 11/07/25 02:03 25 mg ONCE ONE Administration Prednisone 60 mg 11/07/25 02:02 11/07/25 02:08 Prednisone 20 Mg Tablet PO 11/07/25 02:03 60 mg ONCE ONE Administration Medical Decision Making Medical Decision Making MDM Narrative: 2:05 AM 11/07/2025 (Franca DAVILA): The patient is a 30-year-old male presenting to the ED for evaluation of a sudden onset red, itchy rash on the anterior left chest noticed earlier today. He reports daily methamphetamine use over the last several months and used a small amount earlier today from his usual supply. Shortly after use he noted warmth, inflammation, and pruritus of the area. He showered prior to arrival and the appearance improved slightly; he now mainly notes residual erythema. He denies associated vomiting, fever, or perceived throat swelling. He has no known medication, food, or environmental allergies. Past dermatologic history notable for eczema. He has taken no medications for the rash prior to arrival. On exam the patient has a macular, poorly demarcated, mildly warm, nontender, blanching, confluent rash noted to the left sternal border and left chest, no associated vesicles, purulence, fluctuance, tenderness, papules, or ulcerations. The patient has no adventitious lung sounds, and posterior pharynx is unremarkable. The patient's laboratory evaluation is reassuring, no leukocytosis, anemia, electrolyte abnormality, or ANNIKA. The patient's LFTs are unremarkable. The patient's EKG shows normal sinus rhythm, no ischemia. The patient will be treated with Benadryl and prednisone, no indication for epinephrine administration, following interventions rash will be reassessed, expect patient will likely be appropriate for discharge home. Of note the patient is also requesting referral to a supervisor border department as he has been requesting this from his PCP for some time but reports he has been declined cardiology referral due to his active methamphetamine use. Patient was made aware that referral from the ED may not result in an appointment and he may still require PCP referral per insurance policies. Patient states his understanding of this and is appreciative for the phone number, we will call the cardiology office and ask about referral process. Admission/Observation Consideration of admission/observation: Escalation of care including admission/observation considered Lab Data MDM Lab Attestation statement: I reviewed the patient's lab results. 11/06/25 23:14 11/06/25 23:14 Labs: Lab Results 11/06/25 Range/Units 23:14 WBC 6.3 (4.8-10.8) X10*3/uL RBC 4.87 (4.60-5.80) X10*6/uL Hgb 15.1 (14.0-18.0) g/dl Hct 43.2 (42.0-52.0) % MCV 88.7 (80.0-98.0) fL MCH 31.0 (27.0-33.0) pg MCHC 35.0 (31.0-36.0) g/dl RDW 11.7 (11.0-16.0) % Plt Count 329 (160-400) X10*3/uL MPV 8.8 L (9.4-12.4) fL Immature Gran % (Auto) 0.2 (0.0-0.4) % Neut % (Auto) 45.2 (45-73) % Lymph % (Auto) 41.9 H (20-40) % Mcpherson % (Auto) 7.9 (2-11) % Eos % (Auto) 4.0 (0-4) % Baso % (Auto) 0.8 (0-2) % Lymph # (Auto) 2.7 (1.2-4.9) X10*3/uL Mcpherson # (Auto) 0.5 (0.1-1.2) X10*3/uL Eos # (Auto) 0.3 (0.0-0.4) X10*3/uL Baso # (Auto) 0.1 (0.0-0.2) X10*3/uL Abs Immat Gran (auto) 0.01 (0.00-0.03) X10*3/uL Absolute Neuts (auto) 2.9 (2.0-8.3) x10*3/uL Absolute Nucleated RBC 0.000 (0.0-0.012) X10*3/uL Nucleated RBC % (auto) 0.0 (0.0-0.2) /100WBC Sodium 142 (135-145) mmol/L Potassium 3.8 (3.3-5.1) mmol/L Chloride 103 (96-108) mmol/L Carbon Dioxide 29 (22-29) mmol/L Anion Gap 14 (12-20) BUN 8 L (9-16) mg/dL Creatinine 1.01 (0.5-1.4) mg/dL Estim Creat Clear Calc 111.4 Estimated GFR > 60 Random Glucose 87 (60-115) mg/dL Calcium 9.7 (8.4-10.2) mg/dL Magnesium 2.0 (1.6-2.6) mg/dL Total Bilirubin 0.6 (0.0-1.0) mg/dL AST 20 (5-37) U/L ALT 18 (0-40) U/L Alkaline Phosphatase 63 (39-117) U/L Total Protein 8.0 (6.5-8.0) g/dL Albumin 5.0 (3.5-5.0) g/dL Independent Interpretation I performed an independent interpretation of an: EKG (EKG demonstrates sinus rhythm with a rate of 100, no evidence of acute ischemia, no ST elevation, no ectopy. QTC 430. Compared to previous on 08/28/2024 there are no significant morphology changes.) Discharge Plan Discharge Clinical Impression: Allergic reaction to drug, Methamphetamine abuse Patient Disposition: Home, Self-Care Instructions: Methamphetamine Use Disorder (ED), General Allergic Reaction (ED) Additional Instructions: Thank you for choosing [facility]'s Emergency Department for your care today. Thankfully your laboratory evaluation, EKG, exam, and vital signs today are all reassuring. At this time there is no indication for admission to the hospital or continued ED observation, and it is safe to discharge you home. The exact cause of your rash is not entirely clear, it may have been related to her methamphetamine use, however it may also be unrelated. We treated you with prednisone and Benadryl with subsequent improvement in your rash. We are discharging you with prednisone which you should take daily as prescribed until it is finished, and also with the Benadryl which you may take as needed for additional symptoms of rash or itch. Please return immediately to the emergency department if you develop any high pitched noisy breathing, swelling of your lips or tongue, or other concerns for a developing anaphylactic reaction. Please follow up with your primary care physician for re-evaluation, additional management of your symptoms, and continued preventative care. If you do not have a primary care physician, please call the [facility] at [phone] to establish a new primary care physician. While waiting to establish your new primary care physician, you can call our [facility] at [phone] for non-emergency needs. Please return to the emergency department if you develop a severe or sudden change in your symptoms, a fever over 100.4 that does not improve with Tylenol or Ibuprofen, recurrent vomiting, or any other new or worsening symptoms or concerns. Prescriptions: New prednisone 20 mg tablet 60 mg PO DAILY 5 Days Qty: 15 0RF diphenhydramine HCl [Benadryl] 25 mg capsule 25 mg PO TID PRN (Reason: allergic reaction) Qty: 10 0RF No Action famotidine 20 mg tablet 1 tab PO BID propranolol 10 mg Tablet 10 mg PO BID Qty: 60 0RF Protocol: Hold for SBP/HR < HOLD for SBP < : 90 HOLD for HR < : 60 lorazepam 0.5 mg Tablet 0.5 mg PO DAILY Qty: 15 0RF lorazepam 1 mg Tablet 1 mg PO BEDTIME Qty: 15 0RF sertraline 50 mg Tablet 50 mg PO DAILY Qty: 30 0RF ibuprofen 600 mg tablet 600 mg PO Q6H PRN (Reason: fever or pain) Qty: 30 0RF [place]: [facility] [facility] [place] Group] Clinical Impression: Methamphetamine abuse Interventions: ED Discharge Assessment Last Done: 11/07/25 02:55 Discharge Date/Time: 11/07/25 02:58 Print Language: Greenlandic
--- NOTE | 2025-11-07 01:54 | PC.NURSE ---
pt from triage reports he smoked methamphetamine this morning, pt reported he had left sided chest pain with a red rash in the area that was warm to the touch with inflammation. On inspection pt displayed redness to his chest, although his chest was not warm. pt was placed on tele and vital signs were taken and WNL.
[2025-11-07 02:55] VITALS: BP 146/84; PULSE 101; RESP 16; TEMP 37.2; O2SAT 99
== END 2025-11-07 02:58 | disposition home or self-care (01) ==
PROVIDERS: Emergency Provider Emergency Medicine; PCP Pediatrics
DX: T43.651A Poisoning by methamphetamines accidental (unintentional), initial encounter (principal); Y92.9 Unspecified place or not applicable; R21 Rash and other nonspecific skin eruption; R00.0 Tachycardia, unspecified
CPT/HCPCS: 36415; 80053; 83735; 85025; 93005; 99283; 99284

== ENCOUNTER → 2025-11-06 22:59 | Outpatient (BNV) | payer OTHER, SELFPAY | PROVIDERS: Emergency Provider Emergency Medicine; PCP Pediatrics; Visit Provider Internal Medicine Cardiovascular Disease | DX: R00.0 Tachycardia, unspecified (principal) | CPT/HCPCS: 93010 ==